=== PATIENT | male | born 1995 | race Caucasian/White ===

== ENCOUNTER 2021-08-26 18:23 | Emergency (ER) | payer BC, SELFPAY ==
--- NOTE | ~2021-08-26 | XR_ITS ---
EXAMINATION: XR soft tissue neck INDICATION: Sensation of impacted food or pill bolus TECHNIQUE: Two views of the neck soft tissues are obtained. COMPARISON: None available FINDINGS: The soft tissues are unremarkable. No radiopaque foreign body is identified. The osseous st ructures are unremarkable. IMPRESSION: 1. No radiopaque foreign body identified. Reviewed, dictated and finalized at location [facility].
--- NOTE | 2021-08-26 18:24 | ED.URI ---
HPI - URI/Sore Throat General Chief Complaint: Upper Respiratory Infection Stated Complaint: feels like something stuck in throat Time Seen by Provider: 08/26/21 18:24 Source: patient and RN notes reviewed History of Present Illness HPI Narrative: Patient is a 25-year-old male who presents the urgent care with complaints of something stuck in his throat on the right side. Patient states that since Sunday he was experience a lot of postnasal drainage and cough. Patient states he started using Flonase and Sudafed. States that last night he took a larger Sudafed and feels that it got stuck in the right side of his throat. Patient states that he vomited a little bit afterwards and felt better this morning until he ate lunch. Patient states that ever since he ate lunch he is having some difficulty swallowing and feels the need to cough. No other acute complaints. No acute distress noted. Patient aware of the plan of care. Some parts of this dictation were generated by voice recognition software and may contain typographical and/or grammatical inaccuracies. Related Data Home Medications Medication Instructions Recorded Confirmed No Home Medications 08/26/21 08/26/21 Allergies Allergy/AdvReac Type Severity Reaction Status Date / Time No Known Allergies Allergy Verified 08/26/21 18:51 Review of Systems Review of Systems: CONSTITUTIONAL: Denies fever, chills, or sweats. EYES: Denies visual changes, redness, or discharge. ENT: Denies rhinorrhea, congestion otalgia. Reports of the feeling of something stuck in his throat CARDIOVASCULAR: Denies chest pain, palpitations, or edema. RESPIRATORY: Denies cough or dyspnea. GASTROINTESTINAL: Denies abdominal pain, nausea, vomiting, or diarrhea. GENITOURINARY: Denies dysuria or hematuria. SKIN: Denies rash or itching. MUSCULOSKELETAL: Denies back pain, joint pain, or myalgia. NEUROLOGIC: Denies headache, numbness, or weakness. All other systems reviewed are negative, except as documented in HPI. PMFSH Comments At the time of my signature, I reviewed and agree with the nursing past medical, surgical, social, and family history. There is no relevant family history pertinent to the patient complaint. Exam Narrative: GENERAL: This is a well-nourished, well-developed patient, in no apparent distress. HEAD: normocephalic, atraumatic. EYES: PERRL. Sclera clear/white. Vision is grossly intact. EARS: External ears normal, auditory canals clear and without drainage, TMs normal without perforation. Hearing grossly intact. NOSE: External nose normal with no obvious nasal discharge, nares without redness, no rhinorrhea. THROAT: Mucous membranes moist. Notable difficulty with swallowing with moderate erythema noted to posterior oropharynx NECK: Neck supple, non-tender without lymphadenopathy CARDIOVASCULAR: Regular rate and rhythm without murmurs, gallops, or rubs. RESPIRATORY: Clear to auscultation. Breath sounds equal bilaterally. No wheezes, rales, or rhonchi. SKIN: warm, intact with no suspicious lesions or rash, good texture and turgor. NEURO: awake, alert, and oriented to person, place and time. There were no obvious focal neurologic abnormalities. EXTREMITIES: No clubbing, cyanosis, or edema. Course Course Level of Care: Express Care Visit Vital Signs Vital signs: Vital Signs Temperature 99.3 F 08/26/21 18:45 Pulse Rate 100 08/26/21 18:45 Respiratory Rate 18 08/26/21 18:45 Blood Pressure 154/105 H 08/26/21 18:45 Pulse Oximetry 100 08/26/21 18:45 Temperature 99.3 F 08/26/21 18:45 Pulse Rate 100 08/26/21 18:45 Respiratory Rate 18 08/26/21 18:45 Blood Pressure 154/105 H 08/26/21 18:45 Pulse Oximetry 100 08/26/21 18:45 Reviewed-patient is informed that they may have pre-hypertension or hypertension based on a blood pressure reading in the department. I recommend the patient call the primary care provider listed on their discharge instructions or a phys
[2021-08-26 18:45] VITALS: BP 154/105; PULSE 100; RESP 18; TEMP 37.4; O2SAT 100
== END 2021-08-26 19:26 | disposition short-term general hospital (02) ==
PROVIDERS: Emergency Provider Nurse Practitioner Family
DX: R13.10 Dysphagia, unspecified (principal); Z86.16 Personal history of COVID-19
CPT/HCPCS: 70360; 99213; G0463

== ENCOUNTER 2021-08-26 20:08 | Emergency (ER) | payer BC, SELFPAY ==
[2021-08-26] VITALS (7 sets, daily range): BP systolic 142–152; BP diastolic 102–106; PULSE 97–110; RESP 13–19; TEMP 36.9; O2SAT 98–100
--- NOTE | ~2021-08-26 | CT_ITS ---
EXAMINATION: CT soft tissue neck w con DATE: 08/26/2021 22:14 INDICATION: Dysphagia TECHNIQUE: Computed tomography (CT) of the neck was performed with 75 cc of Omnipaque 350 intravenous contrast. The dose-length product (DLP) was 584.15 mGy-cm. Automated exposure control and iterative reconstruction technique were employed. COMPARISON: None FINDINGS: The neck soft tissues are unremarkable. No radiopaque foreign body is identified. There are no pathologically enlarged lymph nodes of the neck. No abnormal enhancement is present after contras t administration. The airway is widely patent. IMPRESSION: 1. No CT correlate for the patient's symptoms. Reviewed, dictated and finalized at location [facility].
--- NOTE | 2021-08-26 21:15 | ED.SKABFB ---
HPI - Skin/Abscess/Foreign Bdy General Chief complaint: Skin/Abscess/Foreign Body Stated complaint: suspected foreign body Time Seen by Provider: 08/26/21 20:33 History of Present Illness HPI narrative: 25-year-old male presents emergency room for evaluation of sore throat, and a sensation that foreign body is stuck in his throat. Patient states that he has recently experienced upper respiratory symptoms, taking Sudafed and Mucinex regularly. Patient states last night he took a Sudafed and believes it is stuck in his throat patient is able to drink fluids and eat without incident. Patient denies any complications with his thyroid. Related Data Allergies Allergy/AdvReac Type Severity Reaction Status Date / Time No Known Allergies Allergy Verified 08/26/21 18:51 Review of Systems Review of Systems: CONSTITUTIONAL: Denies fever, chills, or sweats. EYES: Denies visual changes, redness, or discharge. ENT: Reports sore throat, sinus congestion, postnasal drip CARDIOVASCULAR: Denies chest pain, palpitations, or edema. RESPIRATORY: Denies cough or dyspnea. GASTROINTESTINAL: Denies abdominal pain, nausea, vomiting, or diarrhea. GENITOURINARY: Denies dysuria or hematuria. SKIN: Denies rash or itching. MUSCULOSKELETAL: Denies back pain, joint pain, or myalgia. NEUROLOGIC: Denies headache, numbness, dizziness, or weakness. PSYCHIATRIC: Denies anxiety or depression. Exam Narrative: GENERAL: Well-appearing, well-nourished, and in no acute distress. HEAD: Normocephalic, atraumatic. EYES: PERRLA and EOMI. ENT: Nares clear, no rhinorrhea or epistaxis. Mucous membranes moist. Oropharynx without tonsillar hypertrophy exudate NECK: Supple. No adenopathy or masses. No carotid bruits or JVD CHEST: Clear to auscultation. No respiratory distress. No wheezes rales or rhonchi HEART: Regular rate and rhythm. No murmur heard. Normal peripheral pulses. EXTREMITIES: Normal range of motion. No edema. SKIN: Warm, dry, no rash. NEURO: No focal deficits. Alert and oriented x3. PSYCH: Normal mood and affect. Course Vital Signs Vital signs: Vital Signs Temperature 36.9 C 08/26/21 20:13 Pulse Rate 110 H 08/26/21 20:13 Respiratory Rate 14 08/26/21 20:13 Blood Pressure 147/106 H 08/26/21 20:13 Pulse Oximetry 100 08/26/21 20:13 Temperature 36.9 C 08/26/21 20:13 Pulse Rate 97 08/26/21 21:06 Respiratory Rate 13 08/26/21 21:06 Blood Pressure 142/102 H 08/26/21 21:45 Pulse Oximetry 98 08/26/21 21:45 MDM - Skin/Abscess/Foreign Bdy MDM Narrative Medical decision making narrative: 25-year-old male presented to the emergency room for evaluation of a sensation of something stuck in his throat. Patient states several days ago he was swallowing off brand Sudafed pill when he feels like he got stuck in his throat. Patient was able to keep solids and fluids down without incident. CT soft tissue showed no foreign body or esophageal swelling. CBC and CMP were unremarkable. Patient is likely experiencing a globus at this time. Lab Data Attestation: I reviewed the patient's lab results. Result diagrams: 08/26/21 21:29 08/26/21 21:29 Labs: Lab Results 08/26/21 08/26/21 Range/Units 21:29 21:29 WBC 7.2 (4.5-10.0) K/mm3 RBC 5.06 (4.6-6.20) M/mm3 Hgb 16.4 (14.0-18.0) g/dL Hct 47.3 (42.0-52.0) % MCV 93.5 (80-100) fl MCH 32.4 (26-34) pg MCHC 34.7 (32-36) g/dl RDW 13.1 (11.5-14.5) % Plt Count 230 (150-375) k/mm3 MPV 8.9 (7.4-10.4) fl Immature Gran % (Auto) 0.4 (0-0.5) % Neut % (Auto) 64.8 (45.5-73.1) % Lymph % (Auto) 24.4 (18.3-44.2) % [place] % (Auto) 6.6 (2.6-8.5) % Eos % (Auto) 3.2 (0-4.4) % Baso % (Auto) 0.6 (0.2-1.2) % Lymph # (Auto) 1.75 (0.9-3.2) K/mm3 [place] # (Auto) 0.5 (0.1-0.6) K/mm3 Eos # (Auto) 0.2 (0-0.3) K/mm3 Baso # (Auto) 0.0 (0.0-0.1) K/mm3 Abs Immat Gran (auto) 0.03 (0.00-0.031) K/mm3 Absolute Neuts
[2021-08-26 21:37] LABS: Basophils Percent Auto 0.6 % (0.2-1.2); Eosinophils Absolute Auto 0.2 K/mm3 (0-0.3); Eosinophils Percent Auto 3.2 % (0-4.4); Hematocrit 47.3 % (42.0-52.0); Hemoglobin 16.4 g/dL (14.0-18.0); Immature Granulocyte Absolute 0.03 K/mm3 (0.00-0.031); Immature Granulocyte Percent A 0.4 % (0-0.5); Lymphocytes Absolute Auto 1.75 K/mm3 (0.9-3.2); Lymphocytes Percent Auto 24.4 % (18.3-44.2); Mean Corpuscular HGB Conc 34.7 g/dl (32-36); Mean Corpuscular Hemoglobin 32.4 pg (26-34); Mean Corpuscular Volume 93.5 fl (80-100); Mean Platelet Volume 8.9 fl (7.4-10.4); Monocytes Absolute Auto 0.5 K/mm3 (0.1-0.6); Monocytes Percent Auto 6.6 % (2.6-8.5); Neutrophils Absolute Auto 4.6 K/mm3 (1.3-6.7); Neutrophils Percent Auto 64.8 % (45.5-73.1); Platelet Count Result 230 k/mm3 (150-375); Red Blood Count 5.06 M/mm3 (4.6-6.20); Red Cell Distribution Width 13.1 % (11.5-14.5); White Blood Count 7.2 K/mm3 (4.5-10.0)
[2021-08-26 21:48] LABS: Alanine Aminotransferase 28 U/L (4-50); Albumin Level 4.9 g/dL (3.5-5.1); Alkaline Phosphatase 75 U/L (38-126); Anion Gap 10 mmol/L (8-16); Aspartate Amino Transferase 32 U/L (17-59); Bilirubin,Total 0.8 mg/dL (0.2-1.3); Blood Urea Nitrogen 11 mg/dL (9-20); Carbon Dioxide 26 mmol/L (22-30); Chloride 104 mmol/L (98-107); Estimated CRCL calculation 117 ml/min; Estimated Glomerular Filt Rate > 60; Glucose 98 mg/dL (65-110); Potassium 3.5 mmol/L (3.4-5.0); Sodium 140 mmol/L (137-145)
[2021-08-26] MEDS: methylPREDNISolone SOD SUCC 125 MG VIAL IV PUSH (21:54)
[2021-08-26] MEDS: SODIUM CHLORIDE 0.9% IV 1,000 ML 999 ML IV CONT (21:54)
== END 2021-08-26 23:10 | disposition home or self-care (01) ==
PROVIDERS: Emergency Provider Nurse Practitioner Family
DX: F45.8 Other somatoform disorders (principal); R13.14 Dysphagia, pharyngoesophageal phase
CPT/HCPCS: 36415; 70360; 70491; 80053; 85025; 96361; 96374; 99284; J2930; J7030; Q9967

== ENCOUNTER 2023-03-06 05:24 | Inpatient (IN) | payer BC, SELFPAY ==
[2023-03-06] VITALS (69 sets, daily range): BP systolic 139–172; BP diastolic 101–133; PULSE 101–145; RESP 12–39; TEMP 36.7–37; O2SAT 89–100; BMI 29.2; BMI 29.3
--- NOTE | ~2023-03-06 | CT_ITS ---
EXAMINATION: CT abdomen pelvis w con DATE: 03/06/2023 10:00 INDICATION: Nausea, vomiting. Decreased and painful urination. TECHNIQUE: Computed tomography (CT) of the abdomen and pelvis was performed with 100 CC Omnipaque 350 intravenous contrast. Automated exposure control and iterative reconstruction technique were employe d. Exam dose: 784.15 mGy-cm total exam DLP. COMPARISON: 03/06/2023 right upper quadrant abdominal ultrasound examination FINDINGS: The lung bases are clear. Normal heart size. No pericardial or pleural effusion. Minimal bilateral gynecomastia. Diffuse hepatic steatosis. No hepatic space-occupying mass lesion is detected. The gallbladder appear s unremarkable. No gallbladder wall thickening or pericholecystic fluid or fat stranding. No bile hoa t dilatation. Normal splenic size. There is prominent peripancreatic fat stranding and loss of definition of the pancreatic outlines par ticularly along the lateral body and tail. There is fluid along the left anterior pararenal fascia an d thickening of the lateral conal fascia. The findings are consistent with acute interstitial pancrea titis. Normal morphology of the adrenal glands. 1.6 cm right renal cyst. The kidneys are otherwise unremarkable. No urinary tract calculus or hydrour eteronephrosis is detected. The urinary bladder and prostate gland are unremarkable. There is mild fr ee fluid in the dependent pelvis. Normal caliber of the abdominal aorta. No intraperitoneal or retroperitoneal or pelvic mass lesion or adenopathy. Small sliding hiatal hernia. The appendix is not visualized. No bowel obstruction, bowel wall thicken ing, pneumatosis or intraperitoneal free air. Small fat-containing umbilical hernia. Included skeletal structures are unremarkable. IMPRESSION: Acute pancreatitis Hepatic steatosis Small sliding hiatal hernia Reviewed, dictated and finalized at Location [facility]. Reviewed, dictated and finalized at location L.
--- NOTE | ~2023-03-06 | CT_ITS ---
CT of the Abdomen and Pelvis: Indication: Pancreatitis Technique: 2.5 mm axial scans were obtained through the abdomen and pelvis following intravenous adm inistration of 100 cc of Omnipaque 350. Dose reduction technique was used on this scan by utilizing a utomated exposure control and iterative reconstruction technique. The dose-length product (DLP) was 6 73.40 mGy-cm. COMPARISON: 03/06/2023 Findings: Scans through the lung bases demonstrate small left pleural effusion with mild left basila r atelectatic change. The liver, spleen, gallbladder, adrenals and kidneys are within normal limits. There is probable incr eased peripancreatic inflammatory stranding and fluid. Questionable focal pancreatic necrosis the johnson creatic tail. There is a probable developing, peripherally enhancing fluid collection along the great er curvature of the stomach measuring up to approximately 6.0 cm in maximum diameter, which could ref lect early walled off necrosis or developing pseudocyst. No evidence of aortic aneurysm. No lymphade nopathy. No bowel obstruction or bowel wall thickening. There is no evidence to suggest acute appendicitis. Images through the pelvis were performed. Urinary bladder unremarkable. No pelvic mass seen. Small am ount of pelvic ascites. Impression: Acute necrotizing pancreatitis, with focal necrosis at the pancreatic tail. Developing fluid collection along the greater curvature the stomach measuring up to 6 cm in maximum d iameter, consistent with early walled off necrosis, or possibly developing pseudocyst. Small left pleural effusion. Reviewed, dictated and finalized at [facility]. [employer] Impression: Acute necrotizing pancreatitis, with focal necrosis at the pancreatic tail. Developing fluid collection along the greater curvature the stomach measuring u p to 6 cm in maximum diameter, consistent with early walled off necrosis, or po ssibly developing pseudocyst. Small left pleural effusion.
--- NOTE | ~2023-03-06 | MR_ITS ---
EXAMINATION: MR MRCP wo/w con/w 3D wo ind DATE: 03/09/2023 10:43 INDICATION: Pancreatic pseudocyst. TECHNIQUE: Magnetic resonance imaging (MRI) of the abdomen was performed without and with 20 mL Multi Nixon intravenous contrast. Sequences included coronal T2-weighted FS FSE, coronal T2-weighted FSE, a xial T1-weighted LAVA, coronal FS FIESTA, axial dual-echo T1-weighted SPGR, coronal lava-FLEX, sagitt al T2-weighted FSE, axial T2-weighted FSE, and axial DWI. Thick-slab T2-weighted FSE images were obta ined for magnetic resonance cholangiopancreatography (MRCP). Maximum intensity projection 3-D reconst ructions of the volumetric data were created by the technologist. Postcontrast sequences included cor onal LAVA-flex and time course of axial T1-weighted LAVA. COMPARISON: CT abdomen and pelvis 03/06/2023 FINDINGS: ABDOMEN MRI: There are small pleural effusions, left worse than right. There is diffuse hepatic steat osis. The gallbladder is normal in size. The spleen is normal. There is hypoenhancement of the body a nd tail of the pancreas with surrounding fat stranding. There is hematoma in and around the tail of t he pancreas. There is a rim-enhancing collection between the stomach and pancreas measuring 8.7 x 2.6 x 3.3 cm. The adrenal glands and left kidney are normal. There is a 13 mm cyst in right kidney. Ther e are no dilated loops of bowel. ABDOMEN MRCP: The common duct is normal and measures 1 mm. IMPRESSION: 1. Acute necrotic pancreatitis with 8.7 x 2.6 x 3.3 cm acute necrotic collection. 2. Diffuse hepatic steatosis. 3. Small pleural effusions. Reviewed, dictated and finalized at location E. IMPRESSION: 1. Acute necrotic pancreatitis with 8.7 x 2.6 x 3.3 cm acute necrotic collectio n. 2. Diffuse hepatic steatosis. 3. Small pleural effusions.
--- NOTE | ~2023-03-06 | US_ITS ---
US abdomen limited INDICATION: Evaluate pancreatic pseudocyst. PROCEDURE: Realtime right upper abdominal ultrasound. COMPARISON: No prior studies for comparison. FINDINGS: The pancreas is not well visualized due to bowel gas and patient body habitus. Liver echot exture is increased, consistent with fatty infiltration. There is normal directional flow in the por hernan vein. The gallbladder is normal without stones, gallbladder wall thickening or pericholecystic fluid. Comm on bile duct measures 6 mm. No sonographic Rivera's sign. IMPRESSION: 1: Hepatic steatosis. 2: Pancreas not adequately visualized. Consider correlation with MRI of the abdomen without and with contrast for further assessment of pancreas. Reviewed, dictated and finalized at location A. IMPRESSION: 1: Hepatic steatosis. 2: Pancreas not adequately visualized. Consider correlation with MRI of the abd omen without and with contrast for further assessment of pancreas.
--- NOTE | ~2023-03-06 | US_ITS ---
EXAMINATION: US right upper quadrant DATE: 03/06/2023 08:30 INDICATION: Epigastric abdominal pain. Nausea and vomiting. TECHNIQUE: Multiple grayscale and Doppler ultrasound images of the abdomen were obtained. COMPARISON: None FINDINGS: The pancreas is not well visualized. There is diffuse hepatic steatosis. There is normal fl ow in main portal vein. The gallbladder is normal in size. No gallstones or gallbladder wall thickeni ng. There is no sonographic Rivera sign. The common duct is normal and measures 6 mm. IMPRESSION: 1. Diffuse hepatic steatosis. Reviewed, dictated and finalized at location E.
--- NOTE | ~2023-03-06 | CT_ITS ---
EXAMINATION: CTA chest PE protocol DATE: 03/10/2023 14:35 INDICATION: Tachycardia, hypertension and elevated d-dimer. TECHNIQUE: Computed tomography (CT) pulmonary angiogram of the chest was performed with 100 mL Omnipa que-350 intravenous contrast. Additional 3D reconstructions utilizing coronal maximum intensity proje ction (MIP) were performed. Automated exposure control and iterative reconstruction technique were em ployed. The dose-length product was 666.17 mGy-cm. COMPARISON: None FINDINGS: Good contrast opacification of the pulmonary arteries. There is mild streak artifact from dense contr ast in the superior vena cava and right atrium. Mild to moderate scattered respiratory motion artifac t which significantly limits evaluation of some of the segmental and subsegmental pulmonary arteries in the lower lung zones and in the subsegmental pulmonary arteries in the upper lung zones. There are thin horizontal bands of decreased attenuation extending across the contrast opacified pulmonary art eries and veins at multiple levels which appear to represent artifact of motion. No definitive pulmon addi emboli identified. There are small posterior layering pleural effusions, left greater than right. Partial collapse of the posterior left lower lobe. Additional mild compressive atelectasis at the po sterior basilar right lower lobe. No other airspace disease suspicious for pneumonia. No pulmonary ed tory. Heart size is normal. No pericardial effusion. Thoracic aorta is normal in caliber with no disse ction. No pathologically enlarged thoracic lymphadenopathy. Small sliding-type hiatal hernia. There i s some vicarious excreted contrast in the gallbladder. Diffuse hepatic steatosis. Again seen are noriega ges consistent with necrotizing pancreatitis at the tail the pancreas with surrounding peripancreatic stranding and small organized-appearing acute peripancreatic fluid collections. Bones are unremarkab le. IMPRESSION: 1. No definitive pulmonary embolism with evaluation significantly limited in the segmental and subseg mental pulmonary arteries in the bilateral lower lungs and in the smaller subsegmental pulmonary mehul jaida in the bilateral upper lungs due primarily to moderate respiratory motion. 2. Small bilateral pleural effusions with associated compressive atelectasis in bilateral lower lobes , left greater than right. 3. Small sliding-type hiatal hernia. 4. Acute necrotic pancreatitis with associated acute necrotic collection and nonorganized acute perip ancreatic fluid. Reviewed, dictated and finalized at location A. IMPRESSION: 1. No definitive pulmonary embolism with evaluation significantly limited in th e segmental and subsegmental pulmonary arteries in the bilateral lower lungs an d in the smaller subsegmental pulmonary arteries in the bilateral upper lungs d ue primarily to moderate respiratory motion. 2. Small bilateral pleural effusions with associated compressive atelectasis in bilateral lower lobes, left greater than right. 3. Small sliding-type hiatal hernia. 4. Acute necrotic pancreatitis with associated acute necrotic collection and no norganized acute peripancreatic fluid.
[2023-03-06 06:23] LABS: Hematocrit 56.2 % (42.0-52.0); Hemoglobin 19.7 g/dL (14.0-18.0); Mean Corpuscular HGB Conc 35.1 g/dl (32-36); Mean Corpuscular Hemoglobin 32.7 pg (26-34); Mean Corpuscular Volume 93.2 fl (80-100); Mean Platelet Volume 9.3 fl (7.4-10.4); Platelet Count Result 284 k/mm3 (150-375); Red Blood Count 6.03 M/mm3 (4.6-6.20); Red Cell Distribution Width 13.5 % (11.5-14.5); White Blood Count 19.6 K/mm3 (4.5-10.0)
[2023-03-06 06:40] LABS: Albumin Level 5.4 g/dL (3.5-5.1); Alkaline Phosphatase 96 U/L (38-126); Aspartate Amino Transferase 54 U/L (17-59); Bilirubin,Total 1.7 mg/dL (0.2-1.3); Blood Urea Nitrogen 21 mg/dL (9-20); Calcium 9.7 mg/dL (8.4-10.2); Carbon Dioxide 28 mmol/L (22-30); Chloride 98 mmol/L (98-107); Estimated CRCL calculation 95 ml/min; Estimated Glomerular Filt Rate > 60; Glucose 182 mg/dL (65-110); Lipase 1781 U/L (23-300)
[2023-03-06 06:50] LABS: Alanine Aminotransferase 70 U/L (6-50)
[2023-03-06 06:51] LABS: Appearance Urine Cloudy (Clear); Bacteria Urine Rare /hpf; Bilirubin Urine 2+ (Negative); Blood Urine 2+ (Negative); Color Urine Dark Yellow (Yellow); Glucose Urine UA Trace mg/dL (Negative); Hyaline Casts Urine Present /lpf; Ketones Urine Negative (Negative); Leukocyte Esterase Ur Trace LEU/UL (Negative); Mucus Urine Present /lpf; Nitrate Urine Negative (Negative); Non Pathogenic Casts >20; Protein Urine 4+ mg/dL (Negative); RBC Urine 0-2 /hpf (0-2); Squamous Epithelial Cell Urine Occasional /hpf (Few); WBC Urine 0-5 /hpf; pH Urine 5.5 (5.0-9.0)
[2023-03-06 06:52] LABS: Add Urine Microscopic? YES; Specific Grav Ur 1.042 (1.001-1.035)
[2023-03-06 06:52] LABS: Band Neutrophils Percent 3 % (0-6); Lymphocytes Absolute Manual 0.58 K/mm3 (1.1-4.5); Monocytes Absolute Manual 0.58 K/mm3 (0.1-0.90); Monocytes Percent Manual 3 % (3-9); Neutrophils Absolute Manual 18.42 K/mm3 (1.3-6.7); Neutrophils Percent Manual 91 % (46-73); Platelet Estimate Adequate (Adequate); Schistocytes None Seen (NORMAL); Total Cells Counted 100
[2023-03-06 07:04] LABS: Anion Gap 15 mmol/L (8-16); Potassium 3.9 mmol/L (3.4-5.0); Sodium 141 mmol/L (137-145)
[2023-03-06] MEDS: ONDANSETRON INJ 4 MG/2 ML VIAL IV PUSH ×3 (07:40→18:16)
[2023-03-06] MEDS: MORPHINE SULFATE (*CRX) 4 MG/ML INJ IV PUSH ×3 (08:00→22:25)
[2023-03-06] MEDS: SODIUM CHLORIDE 0.9% IV 1,000 ML 999 ML IV CONT (08:00)
--- NOTE | 2023-03-06 08:42 | ED.NAVMDI ---
HPI - Nausea/Vomiting/Diarrhea General Chief complaint: Nausea/Vomiting/Diarrhea Stated complaint: n/v Time Seen by Provider: 03/06/23 07:32 History of Present Illness HPI Narrative: Patient is a 27-year-old male who presents ER with nausea and vomiting. Ongoing for the last 18 hours. Multiple episodes of emesis. Is causing a lot of pain in his abdomen and back. Most pain is in the epigastrium and radiates into the back. No fevers or chills or sweats. Patient did drink some alcohol prior to this. No history of pancreatitis or gallstones. He has no urinary frequency urgency or dysuria. No chest pain or chest pressure. No fevers or chills or sweats. Related Data Home Medications Medication Instructions Recorded Confirmed No Home Medications 03/06/23 03/06/23 Allergies Allergy/AdvReac Type Severity Reaction Status Date / Time No Known Allergies Allergy Verified 03/06/23 12:57 Review of Systems Review of Systems: All systems reviewed & are unremarkable except as noted in HPI and below Constitutional: Constitutional: Denies chills, Denies fatigue and Denies fever(s) ENT: Denies nasal congestion and Denies sore throat Cardiovascular: Cardiovascular: Denies chest pain, Denies rapid heart rate and Denies radiating jaw, neck or arm pain Gastrointestinal: Gastrointestinal: Reports abdominal pain, Denies diarrhea, Reports nausea and Reports vomiting Musculoskeletal: Musculoskeletal: Reports no additional musculoskeletal complaints PMFSH Past Medical History Medical History (Updated 03/06/23 @ 18:14 by Mundo Waggoner MD) Hypertension Surgical History Surgical History (Updated 03/06/23 @ 13:45 by Dedra Bautista PA-C) History of tonsillectomy (2009) Social History Social History (Updated 03/06/23 @ 13:45 by Dedra Bautista PA-C) Social History: Surrogate medical decision maker: Lala Galvan, mother. Code status: Full code. Smoking status: Never smoker Alcohol intake: current Drinks per week: 8 Substance use: never Substance use type: does not use Lack of Transportation: No Lack of Food: Never True Current Housing: I Have Housing Concerned About Future Housing: No Difficulty Paying Gas/Electric Bills: No Difficulty Paying for Meds: No Currently Unemployed: No Education: Bachelor's Degree Difficulty w/ Childcare or Family Care: No Spiritual care concerns: No Exam Narrative: GENERAL: Uncomfortable-appearing, well-nourished, and actively vomiting. HEAD: Normocephalic, atraumatic. EYES: PERRL and EOMI. ENT: Mucous membranes moist. CHEST: Clear to auscultation. No respiratory distress. HEART: Tachycardic and regular normal peripheral pulses. ABDOMEN: Soft, epigastric tenderness with guarding, nondistended. EXTREMITIES: Normal range of motion. No edema. SKIN: Warm, dry, no rash. NEURO: Alert and oriented x3. PSYCH: Normal mood and affect. Course Course Emergency Course: Patient accepted to the hospitalist service. Patient aggressively fluid hydrated and given pain/nausea medication. Patient educated about diagnosis and treatment plan and verbalized understanding. Patient with chronic hypertension that is uncontrolled. Chart review shows elevated diastolic in the low 100s for several years. Vital Signs Vital signs: Vital Signs Temperature 98.3 F 03/06/23 06:00 Pulse Rate 123 H 03/06/23 06:00 Respiratory Rate 15 03/06/23 06:00 Blood Pressure 154/113 H 03/06/23 06:00 Pulse Oximetry 98 03/06/23 06:00 Oxygen Delivery Room Air 03/06/23 06:00 Temperature 98.3 F 03/06/23 06:00 Pulse Rate 121 H 03/06/23 17:15 Respiratory Rate 20 03/06/23 17:15 Blood Pressure 159/113 H 03/06/23 17:15 Pulse Oximetry 100 03/06/23 17:15 Oxygen Delivery Room Air 03/06/23 06:00 MDM - Nausea/Vomiting/Diarrhea Lab Data 03/06/23 06:11 03/06/23 14:02 Labs: Lab Results 03/06/23 03/06/23 1
[2023-03-06 09:02] LABS: Lactic Acid Reflex 4.4 mmol/L (0.7-2.0)
[2023-03-06] MEDS: SODIUM CHLORIDE 0.9% IV 2,000 ML 999 ML (09:18)
[2023-03-06] MEDS: THIAMINE HCL 200 MG/2 ML VIAL 100 MG IV PUSH (09:27)
--- NOTE | 2023-03-06 10:33 | PC.NURSE ---
pts admission status changed to imu based on pts chronic htn.
[2023-03-06] MEDS: SODIUM CHLORIDE 0.9% IV 1,000 ML 200 ML IV CONT ×3 (11:19→22:25)
[2023-03-06 11:47] LABS: Reflex Lactic Acid Yes or No Add Lactic
--- NOTE | 2023-03-06 13:02 | ADMGEN ---
This patient, Eligio Galvan, was admitted to Virtual [facility] IMU-2. Patient/family oriented to hospital policies and general routines including ID bracelet, bed and alarms, visiting hours, pain management, procedures, bathroom and other care routines, personal items, smoking policy, room service/diet, and visiting hours. Information on how to activate the Rapid Response Team has been discussed. Patient/Family are encouraged to report perceived risks to care and to ask questions if they do not understand what they are told or what they should do.
--- NOTE | 2023-03-06 13:41 | PM.IMHP ---
H&P: HPI History of Present Illness Date/Time: 03/06/23 13:40 Chief Complaint: Nausea, vomiting, abdominal pain. Narrative: This is a 27-year-old male with hypertension who presented to the emergency department via private vehicle for evaluation of nausea, and abdominal pain. The patient provides the following history. He typically drinks 5 to 8 alcoholic beverages a week however imbibed a bit more than usual on Sunday night. Sunday he started to feel poorly with generalized abdominal pain, persistent nausea, vomiting, and eventually dry heaves. He has difficult time describing his pain but it is intense and radiates through to the back. He has not been able to hold down any food or drink. His emesis has been brown but he has not noticed obvious blood. It is not unusual for him to have indigestion but he has no history of ulcers. He also denies history of gallbladder disease and pancreatitis. He denies sick contacts. No fever, cold or flu symptoms, chest pain, shortness a breath, cough, melena, hematochezia, or diarrhea. He denies ever having signs or symptoms of alcohol withdrawal. He was afebrile on arrival to the ED with blood pressures as high as 172/118. Pertinent labs include a WBC count of 19.6, hemoglobin 19.7, lactic acid 4.4, lipase 1781, total protein 9.0, albumin 5.4. CT of the abdomen and pelvis showed acute pancreatitis, hepatic steatosis, and small sliding hiatal hernia. He received 30 mL/kg bolus of normal saline, 4 mg IV morphine, and 4 mg IV ondansetron and he is being admitted in this setting for acute pancreatitis and dehydration. Review of Systems Review of Systems: Twelve systems were reviewed and are negative except for as per HPI. [facility] Past Medical History Medical History (Updated 03/06/23 @ 21:15 by Dedra Bautista PA-C) Hypertension Previously prescribed metoprolol however he did not notice any difference in his blood pressures. He continues to do ambulatory blood pressure monitoring and reports that it has never been over 140/90. Surgical History Surgical History History of tonsillectomy (2009) Family History Family History (Updated 03/06/23 @ 21:15 by Dedra G Gerling, PA-C) Other Family history non-contributory Social History Social History Social History: Surrogate medical decision maker: Lala Galvan, mother. Code status: Full code. Smoking status: Never smoker Alcohol intake: current Drinks per week: 8 Substance use: never Substance use type: does not use Lack of Transportation: No Lack of Food: Never True Current Housing: I Have Housing Concerned About Future Housing: No Difficulty Paying Gas/Electric Bills: No Difficulty Paying for Meds: No Currently Unemployed: No Education: Bachelor's Degree Difficulty w/ Childcare or Family Care: No Spiritual care concerns: No Meds Home Medications and Allergies Home Medications Medication Instructions Recorded Confirmed Type No Home Medications 03/06/23 03/06/23 History Allergies Allergy/AdvReac Type Severity Reaction Status Date / Time No Known Allergies Allergy Verified 03/06/23 12:57 Vital Signs Vital Signs - 24 hr 03/06/23 06:00 03/06/23 07:26 03/06/23 07:27 Temperature 98.3 F Pulse Rate 123 H 131 H 130 H Respiratory Rate 15 39 H 26 H Blood Pressure 154/113 H 155/133 H Pulse Oximetry 98 Oxygen Delivery Room Air 03/06/23 07:30 03/06/23 07:31 03/06/23 07:46 Temperature Pulse Rate 133 H 126 H 128 H Respiratory Rate 30 H 30 H 32 H Blood Pressure 163/119 H Pulse Oximetry 96 Oxygen Delivery 03/06/23 08:00 03/06/23 08:01 03/06/23 08:23 Temperature Pulse Rate 123 H Respiratory Rate Blood Pressure 154/118 H Pulse Oximetry 94 97 97 Oxygen Delivery 03/06/23 08:30 03/06/23 08:45 03/06/23 09:00 Temperature Pulse Ra
[2023-03-06 14:20] LABS: Anion Gap 6 mmol/L (8-16); Blood Urea Nitrogen 20 mg/dL (9-20); Carbon Dioxide 28 mmol/L (22-30); Chloride 106 mmol/L (98-107); Estimated CRCL calculation 104 ml/min; Estimated Glomerular Filt Rate > 60; Glucose 142 mg/dL (65-110); Lactic Acid Reflex 1.9 mmol/L (0.7-2.0); Lipase 1686 U/L (23-300); Magnesium 1.6 mg/dL (1.6-2.3); Sodium 140 mmol/L (137-145)
--- NOTE | 2023-03-06 14:34 | PC.NURSE ---
pt resting quietly on stretcher. waiting imu bed assignment.
[2023-03-06] MEDS: hydrALAZINE HCL 20 MG/ML VIAL 10 MG IV PUSH ×2 (16:16→22:25)
[2023-03-06] MEDS: PROMETHAZINE HCL 25 MG/ML AMPUL 12.5 MG IV PUSH (16:48)
[2023-03-06] MEDS: HYDROmorphone HCL INJ (*CRX) 1 MG/ML SYR 0.5 MG IV PUSH (16:49)
[2023-03-06] MEDS: PANTOPRAZOLE SODIUM IV 40 MG VIAL IV PUSH ×2 (16:49→20:27)
--- NOTE | 2023-03-06 17:50 | ADMGEN ---
This patient, Eligio Galvan, was admitted to Medical Room 253-01. Patient/family oriented to hospital policies and general routines including ID bracelet, bed and alarms, visiting hours, pain management, procedures, bathroom and other care routines, personal items, smoking policy, room service/diet, and visiting hours. Information on how to activate the Rapid Response Team has been discussed. Patient/Family are encouraged to report perceived risks to care and to ask questions if they do not understand what they are told or what they should do.
[2023-03-07] VITALS (9 sets, daily range): BP systolic 142–156; BP diastolic 94–106; PULSE 105–127; RESP 20; TEMP 36.3–36.8; O2SAT 97–99
[2023-03-07] MEDS: SODIUM CHLORIDE 0.9% IV 1,000 ML 200 ML IV CONT ×5 (02:58→23:30)
[2023-03-07] MEDS: MORPHINE SULFATE (*CRX) 4 MG/ML INJ IV PUSH ×5 (02:59→22:24)
[2023-03-07] MEDS: ONDANSETRON INJ 4 MG/2 ML VIAL IV PUSH ×3 (02:59→13:15)
[2023-03-07] MEDS: hydrALAZINE HCL 20 MG/ML VIAL 10 MG IV PUSH (06:23)
[2023-03-07 06:34] LABS: Alanine Aminotransferase 33 U/L (6-50); Albumin Level 3.6 g/dL (3.5-5.1); Alkaline Phosphatase 56 U/L (38-126); Anion Gap 4 mmol/L (8-16); Aspartate Amino Transferase 32 U/L (17-59); Bilirubin,Total 1.2 mg/dL (0.2-1.3); Blood Urea Nitrogen 15 mg/dL (9-20); Calcium 7.6 mg/dL (8.4-10.2); Carbon Dioxide 27 mmol/L (22-30); Chloride 110 mmol/L (98-107); Estimated CRCL calculation 107 ml/min; Estimated Glomerular Filt Rate > 60; Glucose 116 mg/dL (65-110); Lipase 586 U/L (23-300); Potassium 3.6 mmol/L (3.4-5.0); Sodium 141 mmol/L (137-145)
[2023-03-07 07:24] LABS: Hematocrit 44.8 % (42.0-52.0); Hemoglobin 14.5 g/dL (14.0-18.0); Immature Platelet Fraction Pct 3.5 % (0.9-11.2); Mean Corpuscular HGB Conc 32.4 g/dl (32-36); Mean Corpuscular Hemoglobin 32.7 pg (26-34); Mean Corpuscular Volume 100.9 fl (80-100); Mean Platelet Volume 9.6 fl (7.4-10.4); Platelet Count Result 126 k/mm3 (150-375); Red Blood Count 4.44 M/mm3 (4.6-6.20); Red Cell Distribution Width 13.9 % (11.5-14.5); White Blood Count 9.2 K/mm3 (4.5-10.0)
[2023-03-07] MEDS: PANTOPRAZOLE SODIUM IV 40 MG VIAL IV PUSH ×2 (08:02→20:31)
--- NOTE | 2023-03-07 09:01 | PM.IMPN ---
Progress Note: A&P Assessment and Plan (1) Acute pancreatitis: Code(s): K85.90 - Acute pancreatitis without necrosis or infection, unspecified Status: Acute Assessment and Plan: Continue IV fluid, supportive care, ice chips and monitor symptoms LFTs resolved, lipase trending down (2) Dehydration: Code(s): E86.0 - Dehydration Status: Acute Assessment and Plan: As above (3) Lactic acidosis: Code(s): E87.20 - Acidosis, unspecified Status: Acute Assessment and Plan: Resolved, monitor (4) Hypertension: Code(s): I10 - Essential (primary) hypertension Status: Acute Assessment and Plan: Blood pressure reviewed 03/07 Plan Anticipate discharge home tomorrow if symptoms continue to improve and labs look good DVT prophylaxis with SCDs GI prophylaxis not indicated Code status full code Subjective Date/time seen: 03/07/23 09:01 Interval history: 27-year-old male with hypertension who presented to the emergency department via private vehicle for evaluation of nausea, and abdominal pain and is currently being treated for acute pancreatitis of unknown etiology, likely alcohol intake. No overnight events noted. No chest pain or shortness of breath. No nausea, vomiting. He does admit to some diarrhea. No fevers or chills. Patient states he still has significant abdominal pain, unchanged from yesterday. Review of Systems Review of Systems: 12 point review of systems was assessed and was negative except as noted in the HPI Exam Narrative: General: No acute distress, alert and oriented per baseline HEENT: Atraumatic, normocephalic, mucous membranes moist CV: Regular rate and rhythm, S1, S2 Lungs: Clear to auscultation bilaterally, no rales or crackles noted, no wheezes, good air entry Abdomen: Soft, nontender, nondistended Extremities: Normal to inspection Skin: No rashes noted, no lesions or wounds seen Psych: Euthymic, normal affect Objective Data Vital Signs Vital Signs: Vital Signs - 24 hr 03/06/23 09:15 03/06/23 09:28 03/06/23 09:30 Temperature Pulse Rate 115 H 114 H 113 H Respiratory Rate Blood Pressure 164/121 H 165/118 H Pulse Oximetry 97 96 98 Oxygen Delivery 03/06/23 09:31 03/06/23 09:45 03/06/23 09:46 Temperature Pulse Rate 101 H 108 H 118 H Respiratory Rate Blood Pressure 161/114 H Pulse Oximetry 99 98 99 Oxygen Delivery 03/06/23 10:04 03/06/23 10:05 03/06/23 10:15 Temperature Pulse Rate 121 H 110 H 145 H Respiratory Rate Blood Pressure 159/118 H Pulse Oximetry 96 98 98 Oxygen Delivery 03/06/23 10:16 03/06/23 10:17 03/06/23 10:30 Temperature Pulse Rate 109 H 104 H 106 H Respiratory Rate Blood Pressure 172/118 H 155/116 H Pulse Oximetry 99 98 100 Oxygen Delivery 03/06/23 10:31 03/06/23 10:45 03/06/23 10:46 Temperature Pulse Rate 108 H 112 H 110 H Respiratory Rate Blood Pressure 161/123 H Pulse Oximetry 100 95 98 Oxygen Delivery 03/06/23 11:02 03/06/23 11:17 03/06/23 11:18 Temperature Pulse Rate 126 H 118 H 119 H Respiratory Rate Blood Pressure 151/117 H Pulse Oximetry 96 98 Oxygen Delivery 03/06/23 11:30 03/06/23 11:31 03/06/23 11:45 Temperature Pulse Rate 121 H 108 H 113 H Respiratory Rate Blood Pressure 152/119 H 158/123 H Pulse Oximetry 94 98 94 Oxygen Delivery 03/06/23 11:46 03/06/23 12:00 03/06/23 12:01 Temperature Pulse Rate 114 H 119 H 119 H Respiratory Rate Blood Pressure 158/115 H Pulse Oximetry 97 93 97 Oxygen Delivery 03/06/23 12:15 03/06/23 12:16 03/06/23 12:30 Temperature Pulse Rate 119 H 118 H 117 H Respiratory Rate Blood Pressure 159/119 H 158/114 H Pulse Oximetry 95 97 89 L Oxygen Delivery 03/06/23 12:31 03/06/23 12:45 03/06/23 12:46 Temperature Pulse Rate 117 H 113 H 111 H Respiratory Rate Bloo
[2023-03-08] VITALS (9 sets, daily range): BP systolic 144–167; BP diastolic 96–104; PULSE 102–124; RESP 18–20; TEMP 36.8–36.9; O2SAT 98–99
[2023-03-08] MEDS: MORPHINE SULFATE (*CRX) 4 MG/ML INJ IV PUSH ×4 (01:03→23:28)
[2023-03-08] MEDS: SODIUM CHLORIDE 0.9% IV 1,000 ML 200 ML IV CONT ×4 (04:32→21:04)
[2023-03-08] MEDS: PANTOPRAZOLE SODIUM IV 40 MG VIAL IV PUSH ×2 (08:40→21:03)
--- NOTE | 2023-03-08 13:16 | PC.NURSE ---
On 03/08/23, the student, [Kylah Faulkner], provided care and completed [facility] documentation on this patient. I have reviewed the student's documentation and agree with the findings.
[2023-03-08 13:54] LABS: Basophils Percent Auto 0.4 % (0.2-1.2); Eosinophils Absolute Auto 0.2 K/mm3 (0-0.3); Eosinophils Percent Auto 2.7 % (0-4.4); Hemoglobin 12.3 g/dL (14.0-18.0); Immature Granulocyte Absolute 0.04 K/mm3 (0.00-0.031); Immature Granulocyte Percent A 0.6 % (0-0.5); Lymphocytes Percent Auto 11.4 % (18.3-44.2); Mean Corpuscular HGB Conc 33.2 g/dl (32-36); Mean Corpuscular Hemoglobin 32.7 pg (26-34); Mean Corpuscular Volume 98.4 fl (80-100); Mean Platelet Volume 9.7 fl (7.4-10.4); Monocytes Absolute Auto 0.6 K/mm3 (0.1-0.6); Monocytes Percent Auto 8.3 % (2.6-8.5); Neutrophils Absolute Auto 5.4 K/mm3 (1.3-6.7); Neutrophils Percent Auto 76.6 % (45.5-73.1); Platelet Count Result 108 k/mm3 (150-375); Red Blood Count 3.76 M/mm3 (4.6-6.20); Red Cell Distribution Width 13.2 % (11.5-14.5)
[2023-03-08 14:06] LABS: Lipase 305 U/L (23-300)
[2023-03-08 14:09] LABS: Alanine Aminotransferase 22 U/L (6-50); Albumin Level 3.4 g/dL (3.5-5.1); Alkaline Phosphatase 58 U/L (38-126); Anion Gap 10 mmol/L (8-16); Aspartate Amino Transferase 24 U/L (17-59); Bilirubin,Total 1.1 mg/dL (0.2-1.3); Blood Urea Nitrogen 10 mg/dL (9-20); Calcium 7.8 mg/dL (8.4-10.2); Carbon Dioxide 18 mmol/L (22-30); Chloride 107 mmol/L (98-107); Estimated CRCL calculation 148 ml/min; Estimated Glomerular Filt Rate > 60; Glucose 89 mg/dL (65-110); Potassium 3.5 mmol/L (3.4-5.0); Sodium 135 mmol/L (137-145)
--- NOTE | 2023-03-08 15:43 | PM.IMPN ---
Progress Note: A&P Assessment and Plan (1) Acute pancreatitis: Code(s): K85.90 - Acute pancreatitis without necrosis or infection, unspecified Status: Acute Assessment and Plan: Continue IV fluid, supportive care, ice chips and monitor symptoms LFTs resolved, lipase trending down, ADAT Not improving as expected, check imaging to look for pseudocyst, no signs of infection (2) Dehydration: Code(s): E86.0 - Dehydration Status: Acute Assessment and Plan: As above (3) Lactic acidosis: Code(s): E87.20 - Acidosis, unspecified Status: Acute Assessment and Plan: Resolved, monitor (4) Hypertension: Code(s): I10 - Essential (primary) hypertension Status: Acute Assessment and Plan: Blood pressure reviewed 03/08 Plan DVT prophylaxis with SCDs GI prophylaxis not indicated Code status full code Subjective Date/time seen: 03/08/23 15:43 Interval history: 27-year-old male with hypertension who presented to the emergency department via private vehicle for evaluation of nausea, and abdominal pain and is currently being treated for acute pancreatitis of unknown etiology, likely alcohol intake. No overnight events noted. No chest pain or shortness of breath. No nausea, vomiting. No fevers or chills. A little diarrhea, still with significant abdominal pain. Review of Systems Review of Systems: 12 point review of systems was assessed and was negative except as noted in the HPI Exam Narrative: General: No acute distress, alert and oriented per baseline HEENT: Atraumatic, normocephalic, mucous membranes moist CV: Regular rate and rhythm, S1, S2 Lungs: Clear to auscultation bilaterally, no rales or crackles noted, no wheezes, good air entry Abdomen: Diffusely TTP Extremities: Normal to inspection Skin: No rashes noted, no lesions or wounds seen Psych: Euthymic, normal affect Objective Data Vital Signs Vital Signs: Vital Signs - 24 hr 03/07/23 16:00 03/07/23 20:57 03/07/23 20:00 Temperature 97.6 F Pulse Rate 114 H 105 H 110 H Respiratory Rate 20 Blood Pressure 155/103 H Pulse Oximetry 99 Oxygen Delivery 03/07/23 20:00 03/08/23 00:00 03/08/23 04:00 Temperature Pulse Rate 105 H 106 H 124 H Respiratory Rate 20 Blood Pressure Pulse Oximetry 99 Oxygen Delivery Room Air 03/08/23 06:00 03/08/23 08:00 03/08/23 14:09 Temperature 98.2 F 98.5 F Pulse Rate 105 H 104 H Respiratory Rate 20 18 Blood Pressure 144/96 H 167/104 H Pulse Oximetry 98 99 Oxygen Delivery Room Air Intake/Output Intake/Output: Intake & Output 03/05/23 03/06/23 03/07/23 03/08/23 23:59 23:59 23:59 23:59 Intake Total 4000 5000 2000 Output Total 200 1150 800 Balance 3800 3850 1200 Meds/Results Medications: Active Medications Generic Name Dose Route Start Last Admin Trade Name Freq PRN Reason Stop Dose Admin Hydralazine HCl 10 mg 03/06/23 13:46 03/07/23 06:23 Hydralazine Hcl 20 Mg/Ml Vial IV PUSH 10 mg Q6H PRN Administration SBP > 165 or DBP > 105 Sodium Chloride 1,000 mls @ 200 mls/hr 03/06/23 09:15 03/08/23 10:12 Normal Saline Iv IV CONT 200 mls/hr .Q5H CLAUDIA Administration Morphine Sulfate 4 mg 03/06/23 09:15 03/08/23 11:25 Morphine Sulfate (*Crx) 4 Mg/Ml Inj IV PUSH 4 mg Q2H PRN Administration Pain Rated 7-10 Ondansetron HCl 4 mg 03/06/23 09:15 03/07/23 13:15 Ondansetron Inj 4 Mg/2 Ml Vial IV PUSH 4 mg Q4H PRN Administration Nausea Pantoprazole Sodium 40 mg 03/06/23 21:00 03/08/23 08:40 Pantoprazole Sodium Iv 40 Mg Vial IV PUSH 40 mg Q12HR CLAUDIA Administration Radiology Results: ITS Impressions Upper Quadrant Ultrasound 03/06/23 08:31 IMPRESSION: 1. Diffuse hepatic steatosis. Abdomen/Pelvis CT 03/06/23 10:04 IMPRESSION: Acute pancreatitis Hepatic steatosis Small sliding hiatal hernia
[2023-03-09] VITALS (14 sets, daily range): BP systolic 161–166; BP diastolic 92–106; PULSE 91–110; RESP 18–22; TEMP 36.7–37.2; O2SAT 97–100
[2023-03-09] MEDS: SODIUM CHLORIDE 0.9% IV 1,000 ML 200 ML IV CONT ×2 (02:33→06:52)
[2023-03-09 06:11] LABS: Basophils Percent Auto 0.3 % (0.2-1.2); Eosinophils Absolute Auto 0.2 K/mm3 (0-0.3); Eosinophils Percent Auto 3.9 % (0-4.4); Hematocrit 38.2 % (42.0-52.0); Hemoglobin 12.8 g/dL (14.0-18.0); Immature Granulocyte Absolute 0.05 K/mm3 (0.00-0.031); Immature Granulocyte Percent A 0.8 % (0-0.5); Lymphocytes Absolute Auto 0.61 K/mm3 (0.9-3.2); Lymphocytes Percent Auto 9.8 % (18.3-44.2); Mean Corpuscular HGB Conc 33.5 g/dl (32-36); Mean Corpuscular Hemoglobin 32.6 pg (26-34); Mean Corpuscular Volume 97.2 fl (80-100); Mean Platelet Volume 9.3 fl (7.4-10.4); Monocytes Absolute Auto 0.5 K/mm3 (0.1-0.6); Monocytes Percent Auto 8.2 % (2.6-8.5); Neutrophils Absolute Auto 4.8 K/mm3 (1.3-6.7); Platelet Count Result 120 k/mm3 (150-375); Red Blood Count 3.93 M/mm3 (4.6-6.20); Red Cell Distribution Width 12.8 % (11.5-14.5); White Blood Count 6.2 K/mm3 (4.5-10.0)
[2023-03-09 06:18] LABS: Alanine Aminotransferase 21 U/L (6-50); Albumin Level 3.4 g/dL (3.5-5.1); Alkaline Phosphatase 64 U/L (38-126); Anion Gap 10 mmol/L (8-16); Aspartate Amino Transferase 24 U/L (17-59); Blood Urea Nitrogen 9 mg/dL (9-20); Calcium 8.2 mg/dL (8.4-10.2); Carbon Dioxide 18 mmol/L (22-30); Chloride 106 mmol/L (98-107); Estimated CRCL calculation 148 ml/min; Estimated Glomerular Filt Rate > 60; Glucose 83 mg/dL (65-110); Lipase 859 U/L (23-300); Potassium 3.3 mmol/L (3.4-5.0); Sodium 134 mmol/L (137-145)
--- NOTE | 2023-03-09 08:16 | PM.IMPN ---
Progress Note: A&P Assessment and Plan (1) Acute pancreatitis: Code(s): K85.90 - Acute pancreatitis without necrosis or infection, unspecified Status: Acute Assessment and Plan: Continue IV fluid, supportive care, ice chips and monitor symptoms Lipase slightly worsening today, monitor closely for signs of infection, would start imipenem if any concern for necrotizing pancreatitis, follow-up MRI Check procalcitonin, CRP MR shows necrotizing pancreatitis, started on meropenem prophylaxis, GI consult, monitor closely (2) Dehydration: Code(s): E86.0 - Dehydration Status: Acute Assessment and Plan: As above, decrease IVF today, starting to get hyponatremic (3) Lactic acidosis: Code(s): E87.20 - Acidosis, unspecified Status: Acute Assessment and Plan: Resolved, monitor (4) Hypertension: Code(s): I10 - Essential (primary) hypertension Status: Acute Assessment and Plan: Blood pressure reviewed 03/09 Still elevated, hydralazine prn Plan DVT prophylaxis with lovenox GI prophylaxis with PPI Code status full code Subjective Date/time seen: 03/09/23 08:16 Interval history: 27-year-old male with hypertension who presented to the emergency department via private vehicle for evaluation of nausea, and abdominal pain and is currently being treated for acute pancreatitis of unknown etiology, likely alcohol intake. No overnight events noted. No chest pain or shortness of breath. No nausea, vomiting. No fevers or chills. Patient states he is feeling much better today. Review of Systems Review of Systems: 12 point review of systems was assessed and was negative except as noted in the HPI Exam Narrative: General: No acute distress, alert and oriented per baseline HEENT: Atraumatic, normocephalic, mucous membranes moist CV: Regular rate and rhythm, S1, S2 Lungs: Clear to auscultation bilaterally, no rales or crackles noted, no wheezes, good air entry Abdomen: Slightly tender to palpation Extremities: Normal to inspection Skin: No rashes noted, no lesions or wounds seen Psych: Euthymic, normal affect Objective Data Vital Signs Vital Signs: Vital Signs - 24 hr 03/08/23 14:09 03/08/23 12:00 03/08/23 16:00 Temperature 98.5 F Pulse Rate 104 H 108 H 109 H Respiratory Rate 18 Blood Pressure 167/104 H Pulse Oximetry 99 Oxygen Delivery 03/08/23 16:23 03/08/23 20:24 03/08/23 20:00 Temperature 98.5 F Pulse Rate 102 H 104 H 105 H Respiratory Rate 20 Blood Pressure 153/101 H Pulse Oximetry 98 Oxygen Delivery 03/08/23 20:00 03/09/23 00:00 03/09/23 04:00 Temperature Pulse Rate 104 H 102 H 96 Respiratory Rate 20 Blood Pressure Pulse Oximetry 98 Oxygen Delivery Room Air 03/09/23 04:46 Temperature 98.1 F Pulse Rate 96 Respiratory Rate 20 Blood Pressure 166/106 H Pulse Oximetry 100 Oxygen Delivery Intake/Output Intake/Output: Intake & Output 03/06/23 03/07/23 03/08/23 03/09/23 23:59 23:59 23:59 23:59 Intake Total 4000 5000 4000 2000 Output Total 200 1150 1400 1200 Balance 3800 3850 2600 800 Meds/Results Medications: Active Medications Generic Name Dose Route Start Last Admin Trade Name Freq PRN Reason Stop Dose Admin Hydralazine HCl 10 mg 03/06/23 13:46 03/07/23 06:23 Hydralazine Hcl 20 Mg/Ml Vial IV PUSH 10 mg Q6H PRN Administration SBP > 165 or DBP > 105 Sodium Chloride 1,000 mls @ 200 mls/hr 03/06/23 09:15 03/09/23 06:52 Normal Saline Iv IV CONT 200 mls/hr .Q5H CLAUDIA Administration Morphine Sulfate 4 mg 03/06/23 09:15 03/08/23 23:28 Morphine Sulfate (*Crx) 4 Mg/Ml Inj IV PUSH 4 mg Q2H PRN Administration Pain Rated 7-10 Ondansetron HCl 4 mg 03/06/23 09:15 03/07/23 13:15 Ondansetron Inj 4 Mg/2 Ml Vial IV PUSH 4 mg Q4H PRN Administration Nausea Pantoprazole Sodium 40 mg 03/06/23 2
[2023-03-09] MEDS: ENOXAPARIN 40 MG/0.4 ML SYRINGE SUB-Q (08:55)
[2023-03-09] MEDS: PANTOPRAZOLE SODIUM IV 40 MG VIAL IV PUSH ×2 (08:55→21:28)
[2023-03-09] MEDS: POTASSIUM CHLORIDE INJ 40 MEQ in SODIUM CHLORIDE 0.9% IV 500 ML 130 MEQ IVPB (08:56)
[2023-03-09 09:01] LABS: Procalcitonin 0.1 ng/mL
[2023-03-09 09:06] LABS: Lactic Acid Reflex 0.6 mmol/L (0.7-2.0)
[2023-03-09] MEDS: MEROPENEM 1 GM/NS 100 ML 1 GM/100 ML BAG IVPB ×2 (13:51→21:28)
--- NOTE | 2023-03-09 17:19 | WPDGICN ---
Assessment and Plan Assessment and plan (1) Acute pancreatitis: Code(s): K85.90 - Acute pancreatitis without necrosis or infection, unspecified Status: Acute Assessment and Plan: Patient with acute pancreatitis. He does drink alcohol his uncertain if this could be contributing. He may be idiopathic. His triglyceride level is only mild asleep elevated. Patient on most recent imaging studies suggest that he may have a necrotizing component to this. The concern is that this may develop into a pseudocyst. Currently there is no signs of an infection. Patient's abdominal pain has lessened. Would suggest gradually implementing diet. Initially with liquids and advance slowly. Continue to monitor lipase liver function tests. Supportive care advised at this stage. GI Consult Note Consult date/time: 03/09/23 17:19 Reason for consult: Acute necrotizing pancreatitis. HPI: Eligio Galvan is a 27 year old male I am asked to see at the request of the hospitalist service. Patient admitted the hospital 03/06/2023. At that time had rather significant epigastric pain. Upon presentation ultrasound and CT scan were performed suggesting pancreatitis. Patient was placed in p.o.. In treated conservatively. Today his lipase noted elevate to approximately 800 range. MRCP was performed suggesting patient had a fluid collection between the liver and the stomach consistent with necrotizing pancreatitis. This may be the beginning of pseudocyst formation. Patient states his abdominal pain is improved. He has vague low lower back discomfort. Patient denies a fever. He has no jaundice. He admits to having perhaps 6 beers a week. He denies any recent travel. No prior episodes of pancreatitis. Review of Systems Review of Systems: Review of systems noncontributory. [facility] Past Medical History Medical History (Updated 03/06/23 @ 21:15 by Dedra Bautista PA-C) Hypertension Previously prescribed metoprolol however he did not notice any difference in his blood pressures. He continues to do ambulatory blood pressure monitoring and reports that it has never been over 140/90. Surgical History Surgical History History of tonsillectomy (2009) Family History Family History (Updated 03/06/23 @ 21:15 by Dedra Bautista PA-C) Other Family history non-contributory Social History Social History Social History: Surrogate medical decision maker: Lala Galvan, mother. Code status: Full code. Smoking status: Never smoker Alcohol intake: current Drinks per week: 8 Substance use: never Substance use type: does not use Lack of Transportation: No Lack of Food: Never True Current Housing: I Have Housing Concerned About Future Housing: No Difficulty Paying Gas/Electric Bills: No Difficulty Paying for Meds: No Currently Unemployed: No Education: Bachelor's Degree Difficulty w/ Childcare or Family Care: No Spiritual care concerns: No Meds Home Medications and Allergies Home Medications Medication Instructions Recorded Confirmed Type No Home Medications 03/06/23 03/06/23 History Allergies Allergy/AdvReac Type Severity Reaction Status Date / Time No Known Allergies Allergy Verified 03/06/23 12:57 Vital Signs Vital Signs - 24 hr 03/08/23 20:24 03/08/23 20:00 03/08/23 20:00 Temperature 98.5 F Pulse Rate 104 H 105 H 104 H Respiratory Rate 20 20 Blood Pressure 153/101 H Pulse Oximetry 98 98 Oxygen Delivery Room Air 03/09/23 00:00 03/09/23 04:00 03/09/23 04:46 Temperature 98.1 F Pulse Rate 102 H 96 96 Respiratory Rate 20 Blood Pressure 166/106 H Pulse Oximetry 100 Oxygen Delivery 03/09/23 08:54 03/09/23 09:35 03/09/23 10:59 Temperature Pulse Rate 104 H Respiratory Rate 22 H Blood Pressure 163/92 H 1
[2023-03-10] VITALS (12 sets, daily range): BP systolic 154–169; BP diastolic 90–110; PULSE 81–114; RESP 18; TEMP 36.6–36.9; O2SAT 99–100
[2023-03-10] MEDS: ONDANSETRON INJ 4 MG/2 ML VIAL IV PUSH (04:31)
[2023-03-10] MEDS: hydrALAZINE HCL 20 MG/ML VIAL 10 MG IV PUSH (04:31)
[2023-03-10 04:57] LABS: Basophils Percent Auto 0.4 % (0.2-1.2); Eosinophils Absolute Auto 0.2 K/mm3 (0-0.3); Eosinophils Percent Auto 2.4 % (0-4.4); Hematocrit 38.1 % (42.0-52.0); Immature Granulocyte Absolute 0.08 K/mm3 (0.00-0.031); Immature Granulocyte Percent A 1.1 % (0-0.5); Lymphocytes Absolute Auto 0.75 K/mm3 (0.9-3.2); Lymphocytes Percent Auto 10.4 % (18.3-44.2); Mean Corpuscular HGB Conc 34.1 g/dl (32-36); Mean Corpuscular Hemoglobin 32.3 pg (26-34); Mean Corpuscular Volume 94.5 fl (80-100); Monocytes Absolute Auto 0.6 K/mm3 (0.1-0.6); Monocytes Percent Auto 8.9 % (2.6-8.5); Neutrophils Absolute Auto 5.5 K/mm3 (1.3-6.7); Neutrophils Percent Auto 76.8 % (45.5-73.1); Platelet Count Result 136 k/mm3 (150-375); Red Blood Count 4.03 M/mm3 (4.6-6.20); Red Cell Distribution Width 12.6 % (11.5-14.5); White Blood Count 7.2 K/mm3 (4.5-10.0)
[2023-03-10 05:12] LABS: Alanine Aminotransferase 25 U/L (6-50); Albumin Level 3.5 g/dL (3.5-5.1); Alkaline Phosphatase 71 U/L (38-126); Anion Gap 8 mmol/L (8-16); Aspartate Amino Transferase 32 U/L (17-59); Bilirubin,Total 0.9 mg/dL (0.2-1.3); Blood Urea Nitrogen 7 mg/dL (9-20); Calcium 8.4 mg/dL (8.4-10.2); Carbon Dioxide 22 mmol/L (22-30); Chloride 104 mmol/L (98-107); Estimated CRCL calculation 167 ml/min; Estimated Glomerular Filt Rate > 60; Glucose 99 mg/dL (65-110); Potassium 3.3 mmol/L (3.4-5.0); Sodium 134 mmol/L (137-145)
[2023-03-10 05:19] LABS: Lipase 1936 U/L (23-300)
[2023-03-10] MEDS: MEROPENEM 1 GM/NS 100 ML 1 GM/100 ML BAG IVPB ×3 (05:50→20:56)
[2023-03-10] MEDS: MAG HYDROX/AL HYDROX/SIMETH 30 ML UDC PO (05:50)
[2023-03-10] MEDS: ENOXAPARIN 40 MG/0.4 ML SYRINGE SUB-Q (08:20)
[2023-03-10] MEDS: PANTOPRAZOLE SODIUM IV 40 MG VIAL IV PUSH ×2 (08:20→20:53)
--- NOTE | 2023-03-10 08:56 | PM.IMPN ---
Progress Note: A&P Assessment and Plan (1) Acute pancreatitis: Code(s): K85.90 - Acute pancreatitis without necrosis or infection, unspecified Status: Acute Assessment and Plan: Continue IV fluid, supportive care, ice chips and monitor symptoms Lipase slightly worsening today, monitor closely for signs of infection, would start imipenem if any concern for necrotizing pancreatitis 03/09: MR shows necrotizing pancreatitis, started on meropenem prophylaxis, GI consult appreciated, monitor closely CLD, ADAT 03/10: Cont abx prophylaxis due to necrotizing fluid collection, lipase slowly trending back up (2) Dehydration: Code(s): E86.0 - Dehydration Status: Acute Assessment and Plan: As above, add back IVF bolus today, see if this helps correct his tachycardia (3) Lactic acidosis: Code(s): E87.20 - Acidosis, unspecified Status: Acute Assessment and Plan: Resolved, monitor (4) Hypertension: Code(s): I10 - Essential (primary) hypertension Status: Acute Assessment and Plan: Blood pressure reviewed 03/10 Still elevated, hydralazine prn Start clonidine 0.1 mg q12h Plan DVT prophylaxis with lovenox GI prophylaxis with PPI Code status full code Subjective Date/time seen: 03/10/23 08:56 Interval history: 27-year-old male with hypertension who presented to the emergency department via private vehicle for evaluation of nausea, and abdominal pain and is currently being treated for acute pancreatitis of unknown etiology, likely alcohol intake. No overnight events noted. No chest pain or shortness of breath. No nausea, vomiting. No fevers or chills. No complaints today. Patient states he does remember getting bit by a scorpion when he was camping. Review of Systems Review of Systems: 12 point review of systems was assessed and was negative except as noted in the HPI Exam Narrative: General: No acute distress, alert and oriented per baseline HEENT: Atraumatic, normocephalic, mucous membranes moist CV: Regular rate and rhythm, S1, S2 Lungs: Clear to auscultation bilaterally, no rales or crackles noted, no wheezes, good air entry Abdomen: Slightly tender to palpation Extremities: Normal to inspection Skin: No rashes noted, no lesions or wounds seen Psych: Euthymic, normal affect Objective Data Vital Signs Vital Signs: Vital Signs - 24 hr 03/09/23 09:35 03/09/23 10:59 03/09/23 09:18 Temperature Pulse Rate 104 H 103 H Respiratory Rate 22 H Blood Pressure 166/94 H Pulse Oximetry 100 97 Oxygen Delivery Room Air 03/09/23 12:00 03/09/23 14:00 03/09/23 16:00 Temperature 98.6 F Pulse Rate 101 H 93 91 Respiratory Rate 18 Blood Pressure 161/96 H Pulse Oximetry 98 Oxygen Delivery 03/09/23 19:50 03/09/23 21:14 03/09/23 20:00 Temperature 98.9 F Pulse Rate 94 99 Respiratory Rate 18 Blood Pressure 162/100 H Pulse Oximetry 100 100 Oxygen Delivery Room Air 03/10/23 00:00 03/10/23 04:00 03/10/23 04:30 Temperature 97.8 F Pulse Rate 97 81 92 Respiratory Rate 18 Blood Pressure 168/104 H Pulse Oximetry 100 Oxygen Delivery 03/10/23 06:25 03/10/23 08:16 Temperature Pulse Rate 97 Respiratory Rate 18 Blood Pressure 160/100 H 154/90 H Pulse Oximetry 99 Oxygen Delivery Intake/Output Intake/Output: Intake & Output 03/07/23 03/08/23 03/09/23 03/10/23 23:59 23:59 23:59 23:59 Intake Total 5000 4000 3140 300 Output Total 1150 1400 1500 Balance 3850 2600 1640 300 Meds/Results Medications: Active Medications Generic Name Dose Route Start Last Admin Trade Name Freq PRN Reason Stop Dose Admin Enoxaparin Sodium 40 mg 03/09/23 09:00 03/10/23 08:20 Enoxaparin 40 Mg/0.4 Ml Syringe SUB-Q 40 mg DAILY CLAUDIA Administration Hydralazine HCl 10 mg 03/06/23 13:46 03/10/23 04:31 Hydralazine Hcl 20 Mg/Ml Vial IV PUSH 10 mg Q
[2023-03-10 10:08] LABS: CRP 16.6 mg/dL (<1.0)
[2023-03-10] MEDS: POTASSIUM CHLORIDE INJ 40 MEQ in SODIUM CHLORIDE 0.9% IV 500 ML 130 MEQ IVPB (10:35)
[2023-03-10] MEDS: cloNIDine HCL 0.1 MG TABLET PO ×2 (10:35→20:53)
[2023-03-10 13:37] LABS: D Dimer 6.73 ug/mL (<0.48)
[2023-03-10] MEDS: SODIUM CHLORIDE 0.9% IV 1,000 ML 999 ML IV CONT (15:10)
--- NOTE | 2023-03-10 15:16 | WPDGIPROGNO ---
Progress Note: A&P Assessment and Plan (1) Necrotizing pancreatitis: Code(s): K85.91 - Acute pancreatitis with uninfected necrosis, unspecified Status: Acute Assessment and Plan: first episode, he drinks alcohol but denies being a heavy drinker MRCP reviewed, pancreatic collection and started on iv antibiotics, normal liver enzymes this will need to be monitored and based on clinical course/imaging may need tertiary hospital evaluation for possible EUS +/- drainage (2) Epigastric pain: Code(s): R10.13 - Epigastric pain Status: Acute Assessment and Plan: improved on CL diet for now (3) Fluid collection of pancreas: Code(s): K86.89 - Other specified diseases of pancreas Status: Acute (4) Hypertension, uncontrolled: Code(s): I10 - Essential (primary) hypertension Status: Acute (5) Dehydration: Code(s): E86.0 - Dehydration Status: Acute Subjective Date/time seen: 03/10/23 15:16 Interval history: he is comfortable, no nausea, mostly dyspepsia rather than pain on liquid diet Review of Systems Review of Systems: All systems reviewed & are unremarkable except as noted in HPI and below Exam Const: General: comfortable and no acute distress HENMT: Face/Nose/Sinus: Normal nares present Eyes: General: appearance normal, both eyes and all related structures Neck: Neck: no JVD Resp: Auscultation: clear to auscultation bilaterally Cardio: Rate: regular rate Rhythm: regular rhythm GI: Inspection: non-distended GI Palp: Yes Soft to palpation and No Guarding due to palpation present (GI) Auscultation: normal bowel sounds Skin: General skin exam: normal color Neuro: Speech: normal speech Motor exam (neuro): 5/5 motor strength present throughout Extrem: General: normal to inspection Psych: Mental Status: mental status grossly normal Objective Data Vital Signs Vital Signs: Vital Signs - 24 hr 03/09/23 16:00 03/09/23 19:50 03/09/23 21:14 Temperature 98.9 F Pulse Rate 91 94 Respiratory Rate 18 Blood Pressure 162/100 H Pulse Oximetry 100 100 Oxygen Delivery Room Air 03/09/23 20:00 03/10/23 00:00 03/10/23 04:00 Temperature Pulse Rate 99 97 81 Respiratory Rate Blood Pressure Pulse Oximetry Oxygen Delivery 03/10/23 04:30 03/10/23 06:25 03/10/23 08:16 Temperature 97.8 F Pulse Rate 92 97 Respiratory Rate 18 18 Blood Pressure 168/104 H 160/100 H 154/90 H Pulse Oximetry 100 99 Oxygen Delivery 03/10/23 08:00 03/10/23 12:27 03/10/23 08:15 Temperature Pulse Rate 97 114 H Respiratory Rate Blood Pressure Pulse Oximetry Oxygen Delivery Room Air 03/10/23 13:30 Temperature 98.1 F Pulse Rate 94 Respiratory Rate 18 Blood Pressure 154/90 H Pulse Oximetry 99 Oxygen Delivery Intake/Output Intake/Output: Intake & Output 03/07/23 03/08/23 03/09/23 03/10/23 23:59 23:59 23:59 23:59 Intake Total 5000 4000 3140 880 Output Total 1150 1400 1500 Balance 3850 2600 1640 880 Meds/Results Medications: Active Medications Generic Name Dose Route Start Last Admin Trade Name Freq PRN Reason Stop Dose Admin Clonidine HCl 0.1 mg 03/10/23 09:00 03/10/23 10:35 Clonidine Hcl 0.1 Mg Tablet PO 0.1 mg Q12HR CLAUDIA Administration Enoxaparin Sodium 40 mg 03/09/23 09:00 03/10/23 08:20 Enoxaparin 40 Mg/0.4 Ml Syringe SUB-Q 40 mg DAILY CLAUDIA Administration Hydralazine HCl 10 mg 03/06/23 13:46 03/10/23 04:31 Hydralazine Hcl 20 Mg/Ml Vial IV PUSH 10 mg Q6H PRN Administration SBP > 165 or DBP > 105 Meropenem 1 gm in 100 mls @ 200 mls/hr 03/09/23 13:00 03/10/23 14:51 IVPB Infused Q8HR CLAUDIA Infusion Morphine Sulfate 4 mg 03/06/23 09:15 03/08/23 23:28 Morphine Sulfate (*Crx) 4 Mg/Ml Inj IV PUSH 4 mg Q2H PRN Administration Pain Rated 7-10 Ondansetron HCl 4 mg 03/06/23 09:15 03/10/23 04:31 Ondansetron Inj 4 Mg/
[2023-03-11] VITALS (11 sets, daily range): BP systolic 136–162; BP diastolic 92–94; PULSE 83–106; RESP 16–18; TEMP 35.8–36.9; O2SAT 97–100
[2023-03-11 05:34] LABS: Basophils Percent Auto 0.4 % (0.2-1.2); Eosinophils Absolute Auto 0.2 K/mm3 (0-0.3); Eosinophils Percent Auto 2.2 % (0-4.4); Hemoglobin 13.6 g/dL (14.0-18.0); Immature Granulocyte Absolute 0.09 K/mm3 (0.00-0.031); Immature Granulocyte Percent A 1.2 % (0-0.5); Lymphocytes Absolute Auto 0.84 K/mm3 (0.9-3.2); Lymphocytes Percent Auto 10.8 % (18.3-44.2); Mean Corpuscular Hemoglobin 32.2 pg (26-34); Mean Corpuscular Volume 94.8 fl (80-100); Mean Platelet Volume 8.9 fl (7.4-10.4); Monocytes Absolute Auto 0.8 K/mm3 (0.1-0.6); Monocytes Percent Auto 10.1 % (2.6-8.5); Neutrophils Absolute Auto 5.9 K/mm3 (1.3-6.7); Neutrophils Percent Auto 75.3 % (45.5-73.1); Platelet Count Result 167 k/mm3 (150-375); Red Blood Count 4.22 M/mm3 (4.6-6.20); Red Cell Distribution Width 12.8 % (11.5-14.5); White Blood Count 7.8 K/mm3 (4.5-10.0)
[2023-03-11] MEDS: MEROPENEM 1 GM/NS 100 ML 1 GM/100 ML BAG IVPB (05:36)
[2023-03-11 05:54] LABS: Alanine Aminotransferase 37 U/L (6-50); Albumin Level 3.5 g/dL (3.5-5.1); Alkaline Phosphatase 73 U/L (38-126); Anion Gap 8 mmol/L (8-16); Aspartate Amino Transferase 38 U/L (17-59); Bilirubin,Total 0.8 mg/dL (0.2-1.3); Blood Urea Nitrogen 9 mg/dL (9-20); Calcium 8.7 mg/dL (8.4-10.2); Carbon Dioxide 24 mmol/L (22-30); Chloride 103 mmol/L (98-107); Estimated CRCL calculation 146 ml/min; Estimated Glomerular Filt Rate > 60; Glucose 94 mg/dL (65-110); Potassium 3.6 mmol/L (3.4-5.0); Sodium 135 mmol/L (137-145)
[2023-03-11 05:58] LABS: Lipase 3825 U/L (23-300)
--- NOTE | 2023-03-11 09:21 | PM.IMPN ---
Progress Note: A&P Assessment and Plan (1) Acute pancreatitis: Code(s): K85.90 - Acute pancreatitis without necrosis or infection, unspecified Status: Acute Assessment and Plan: 03/09: MR shows necrotizing pancreatitis, started on meropenem prophylaxis, GI consult appreciated, monitor closely CLD, ADAT 03/10: Cont abx prophylaxis due to necrotizing fluid collection, lipase slowly trending back up 03/11: lipase doubled, but clinically improving. Lost IV access, encourage po fluids, start cipro + flagyl po and monitor response closely, ADAT (2) Dehydration: Code(s): E86.0 - Dehydration Status: Acute Assessment and Plan: Push po fluids, monitor tachycardia closely (3) Lactic acidosis: Code(s): E87.20 - Acidosis, unspecified Status: Acute Assessment and Plan: Resolved, monitor (4) Hypertension: Code(s): I10 - Essential (primary) hypertension Status: Acute Assessment and Plan: Blood pressure reviewed 03/11 Increase clonidine to 0.1 mg q8h Plan DVT prophylaxis with lovenox GI prophylaxis with PPI Code status full code Subjective Date/time seen: 03/11/23 09:21 Interval history: 27-year-old male with hypertension who presented to the emergency department via private vehicle for evaluation of nausea, and abdominal pain and is currently being treated for acute pancreatitis of unknown etiology, likely alcohol intake. No overnight events noted. No chest pain or shortness of breath. No nausea, vomiting. No fevers or chills. Some abdominal discomfort with swallowing. Review of Systems Review of Systems: 12 point review of systems was assessed and was negative except as noted in the HPI Exam Narrative: General: No acute distress, alert and oriented per baseline HEENT: Atraumatic, normocephalic, mucous membranes moist CV: Regular rate and rhythm, S1, S2 Lungs: Clear to auscultation bilaterally, no rales or crackles noted, no wheezes, good air entry Abdomen: No TTP, ND, +BS Extremities: Normal to inspection Skin: No rashes noted, no lesions or wounds seen Psych: Euthymic, normal affect Objective Data Vital Signs Vital Signs: Vital Signs - 24 hr 03/10/23 12:27 03/10/23 13:30 03/10/23 16:50 Temperature 98.1 F Pulse Rate 114 H 94 Respiratory Rate 18 Blood Pressure 154/90 H Pulse Oximetry 99 100 Oxygen Delivery Room Air 03/10/23 16:00 03/10/23 21:25 03/10/23 20:00 Temperature 98.4 F Pulse Rate 92 96 113 H Respiratory Rate 18 Blood Pressure 169/110 H Pulse Oximetry 99 Oxygen Delivery 03/11/23 00:00 03/11/23 04:00 03/11/23 06:00 Temperature 96.5 F L Pulse Rate 92 90 86 Respiratory Rate 18 Blood Pressure 160/93 H Pulse Oximetry 100 Oxygen Delivery Intake/Output Intake/Output: Intake & Output 03/08/23 03/09/23 03/10/23 03/11/23 23:59 23:59 23:59 22:59 Intake Total 4000 3140 2620 400 Output Total 1400 1500 Balance 2600 1640 2620 400 Meds/Results Medications: Active Medications Generic Name Dose Route Start Last Admin Trade Name Freq PRN Reason Stop Dose Admin Clonidine HCl 0.1 mg 03/10/23 09:00 03/10/23 20:53 Clonidine Hcl 0.1 Mg Tablet PO 0.1 mg Q12HR CLAUDIA Administration Enoxaparin Sodium 40 mg 03/09/23 09:00 03/10/23 08:20 Enoxaparin 40 Mg/0.4 Ml Syringe SUB-Q 40 mg DAILY CLAUDIA Administration Hydralazine HCl 10 mg 03/06/23 13:46 03/10/23 04:31 Hydralazine Hcl 20 Mg/Ml Vial IV PUSH 10 mg Q6H PRN Administration SBP > 165 or DBP > 105 Meropenem 1 gm in 100 mls @ 200 mls/hr 03/09/23 13:00 03/11/23 06:06 IVPB Infused Q8HR CLAUDIA Infusion Morphine Sulfate 4 mg 03/06/23 09:15 03/08/23 23:28 Morphine Sulfate (*Crx) 4 Mg/Ml Inj IV PUSH 4 mg Q2H PRN Administration Pain Rated 7-10 Ondansetron HCl 4 mg 03/06/23 09:15 03/10/23 04:31 Ondansetron Inj 4 Mg/2 Ml Vial IV PUSH 4
[2023-03-11] MEDS: ENOXAPARIN 40 MG/0.4 ML SYRINGE SUB-Q (09:51)
[2023-03-11] MEDS: CIPROFLOXACIN 500 MG TAB PO ×2 (09:51→21:04)
[2023-03-11] MEDS: cloNIDine HCL 0.1 MG TABLET PO ×3 (09:51→21:04)
[2023-03-11] MEDS: metroNIDAZOLE 250 MG TABLET 500 MG PO ×2 (14:07→21:04)
--- NOTE | 2023-03-11 14:22 | WPDGIPROGNO ---
Progress Note: A&P Assessment and Plan (1) Necrotizing pancreatitis: Code(s): K85.91 - Acute pancreatitis with uninfected necrosis, unspecified Status: Acute Assessment and Plan: first episode, he drinks alcohol but denies being a heavy drinker MRCP reviewed, ?8.7 x 2.6 x 3.3 cm acute necrotic collection. He is on antibiotics, normal liver enzymes this will need to be monitored and based on clinical course repeat imaging may need tertiary hospital evaluation for possible EUS +/- drainage Dr Leos returns tomorrow (2) Epigastric pain: Code(s): R10.13 - Epigastric pain Status: Acute Assessment and Plan: only minimal discomfort, no nausea on CL diet for now (3) Fluid collection of pancreas: Code(s): K86.89 - Other specified diseases of pancreas Status: Acute (4) Hypertension, uncontrolled: Code(s): I10 - Essential (primary) hypertension Status: Acute (5) Dehydration: Code(s): E86.0 - Dehydration Status: Acute Subjective Date/time seen: 03/11/23 14:22 Interval history: no nausea, only dyspepsia Review of Systems Review of Systems: All systems reviewed & are unremarkable except as noted in HPI and below Exam Const: General: comfortable and no acute distress HENMT: Face/Nose/Sinus: Normal nares present Eyes: General: appearance normal, both eyes and all related structures Neck: Neck: no JVD Resp: Auscultation: clear to auscultation bilaterally Cardio: Rate: regular rate Rhythm: regular rhythm GI: GI Palp: Yes Soft to palpation, Yes Tenderness to palpation present (GI) (mild tender in epigastric, no rebound) and No Guarding due to palpation present (GI) Auscultation: normal bowel sounds Skin: General skin exam: normal color Neuro: Speech: normal speech Motor exam (neuro): 5/5 motor strength present throughout Extrem: General: normal to inspection Psych: Mental Status: mental status grossly normal Objective Data Vital Signs Vital Signs: Vital Signs - 24 hr 03/10/23 16:50 03/10/23 16:00 03/10/23 21:25 Temperature 98.4 F Pulse Rate 92 96 Respiratory Rate 18 Blood Pressure 169/110 H Pulse Oximetry 100 99 Oxygen Delivery Room Air 03/10/23 20:00 03/11/23 00:00 03/11/23 04:00 Temperature Pulse Rate 113 H 92 90 Respiratory Rate Blood Pressure Pulse Oximetry Oxygen Delivery 03/11/23 06:00 03/11/23 09:43 03/11/23 08:00 Temperature 96.5 F L Pulse Rate 86 96 94 Respiratory Rate 18 18 Blood Pressure 160/93 H 162/94 H Pulse Oximetry 100 98 Oxygen Delivery 03/11/23 09:45 03/11/23 12:00 03/11/23 13:44 Temperature 97.9 F Pulse Rate 83 106 H Respiratory Rate 16 Blood Pressure 136/92 H Pulse Oximetry 99 Oxygen Delivery Room Air Intake/Output Intake/Output: Intake & Output 03/08/23 03/09/23 03/10/23 03/11/23 23:59 23:59 23:59 22:59 Intake Total 4000 3140 2620 760 Output Total 1400 1500 Balance 2600 1640 2620 760 Meds/Results Medications: Active Medications Generic Name Dose Route Start Last Admin Trade Name Freq PRN Reason Stop Dose Admin Ciprofloxacin 500 mg 03/11/23 09:30 03/11/23 09:51 Ciprofloxacin 500 Mg Tab PO 500 mg Q12HR CLAUDIA Administration Clonidine HCl 0.1 mg 03/11/23 16:00 Clonidine Hcl 0.1 Mg Tablet PO Q8HR [facility] Enoxaparin Sodium 40 mg 03/09/23 09:00 03/11/23 09:51 Enoxaparin 40 Mg/0.4 Ml Syringe SUB-Q 40 mg DAILY CLAUDIA Administration Metronidazole 500 mg 03/11/23 14:00 03/11/23 14:07 Metronidazole 250 Mg Tablet PO 500 mg Q8HR CLAUDIA Administration Oxycodone HCl 5 mg 03/11/23 09:23 Oxycodone Hcl (*Crx) 5 Mg Tab Ir PO Q4H PRN Pain Rated 7-10 Radiology Results: ITS Impressions Upper Quadrant Ultrasound 03/06/23 08:31 IMPRESSION: 1. Diffuse hepatic steatosis. Abdomen/Pelvis CT 03/06/23 10:04 IMPRESSION: Acute pancreatitis Hepatic steatosis Small s
[2023-03-11] MEDS: SIMETHICONE 125 MG CHEW TAB PO ×2 (15:45→21:04)
--- NOTE | 2023-03-11 17:57 | PC.NURSE ---
Gave first dose of simethicone at 1545. Patient refused 1700 dose. Accidentally un-did 1545 dose instead of non-administering 1700 dose. Dose only given at 1545
[2023-03-12] VITALS (10 sets, daily range): BP systolic 134–137; BP diastolic 80–96; PULSE 80–107; RESP 16–18; TEMP 36.5–36.8; O2SAT 98–100
[2023-03-12] MEDS: cloNIDine HCL 0.1 MG TABLET PO ×3 (05:37→21:01)
[2023-03-12] MEDS: metroNIDAZOLE 250 MG TABLET 500 MG PO ×3 (05:37→21:01)
[2023-03-12 06:09] LABS: Basophils Percent Auto 0.6 % (0.2-1.2); Eosinophils Absolute Auto 0.3 K/mm3 (0-0.3); Eosinophils Percent Auto 3.5 % (0-4.4); Hemoglobin 13.1 g/dL (14.0-18.0); Immature Granulocyte Absolute 0.04 K/mm3 (0.00-0.031); Immature Granulocyte Percent A 0.6 % (0-0.5); Lymphocytes Absolute Auto 0.89 K/mm3 (0.9-3.2); Lymphocytes Percent Auto 12.3 % (18.3-44.2); Mean Corpuscular HGB Conc 34.5 g/dl (32-36); Mean Corpuscular Hemoglobin 32.5 pg (26-34); Mean Corpuscular Volume 94.3 fl (80-100); Mean Platelet Volume 8.9 fl (7.4-10.4); Monocytes Absolute Auto 0.8 K/mm3 (0.1-0.6); Monocytes Percent Auto 11.3 % (2.6-8.5); Neutrophils Absolute Auto 5.2 K/mm3 (1.3-6.7); Neutrophils Percent Auto 71.7 % (45.5-73.1); Platelet Count Result 186 k/mm3 (150-375); Red Blood Count 4.03 M/mm3 (4.6-6.20); Red Cell Distribution Width 12.9 % (11.5-14.5); White Blood Count 7.2 K/mm3 (4.5-10.0)
[2023-03-12 06:25] LABS: Alanine Aminotransferase 36 U/L (6-50); Albumin Level 3.5 g/dL (3.5-5.1); Alkaline Phosphatase 67 U/L (38-126); Anion Gap 6 mmol/L (8-16); Aspartate Amino Transferase 32 U/L (17-59); Bilirubin,Total 0.7 mg/dL (0.2-1.3); Blood Urea Nitrogen 10 mg/dL (9-20); Calcium 8.4 mg/dL (8.4-10.2); Carbon Dioxide 27 mmol/L (22-30); Chloride 100 mmol/L (98-107); Estimated CRCL calculation 145 ml/min; Estimated Glomerular Filt Rate > 60; Glucose 96 mg/dL (65-110); Potassium 3.4 mmol/L (3.4-5.0); Sodium 133 mmol/L (137-145)
[2023-03-12 06:40] LABS: Lipase 3410 U/L (23-300)
--- NOTE | 2023-03-12 08:36 | PM.IMPN ---
Progress Note: A&P Assessment and Plan (1) Acute pancreatitis: Code(s): K85.90 - Acute pancreatitis without necrosis or infection, unspecified Status: Acute Assessment and Plan: 03/09: MR shows necrotizing pancreatitis, started on meropenem prophylaxis, GI consult appreciated, monitor closely CLD, ADAT 03/10: Cont abx prophylaxis due to necrotizing fluid collection, lipase slowly trending back up 03/11: lipase doubled, but clinically improving. Lost IV access, encourage po fluids, start cipro + flagyl po and monitor response closely, ADAT 03/12: lipase slightly improving, possible need for drainage of necrotic fluid collection and transfer to tertiary care center, appreciate GI consult and recs (2) Dehydration: Code(s): E86.0 - Dehydration Status: Acute Assessment and Plan: Push po fluids, monitor tachycardia closely (3) Lactic acidosis: Code(s): E87.20 - Acidosis, unspecified Status: Acute Assessment and Plan: Resolved, monitor (4) Hypertension: Code(s): I10 - Essential (primary) hypertension Status: Acute Assessment and Plan: Blood pressure reviewed 03/12 Increase clonidine to 0.1 mg q8h Plan DVT prophylaxis with lovenox GI prophylaxis with PPI Code status full code Subjective Date/time seen: 03/12/23 08:36 Interval history: 27-year-old male with hypertension who presented to the emergency department via private vehicle for evaluation of nausea, and abdominal pain and is currently being treated for acute pancreatitis of unknown etiology, likely alcohol intake. No overnight events noted. No chest pain or shortness of breath. No nausea, vomiting. No fevers or chills. Some abdominal discomfort with swallowing. Review of Systems Review of Systems: 12 point review of systems was assessed and was negative except as noted in the HPI Exam Narrative: General: No acute distress, alert and oriented per baseline HEENT: Atraumatic, normocephalic, mucous membranes moist CV: Regular rate and rhythm, S1, S2 Lungs: Clear to auscultation bilaterally, no rales or crackles noted, no wheezes, good air entry Abdomen: No TTP, ND, +BS Extremities: Normal to inspection Skin: No rashes noted, no lesions or wounds seen Psych: Euthymic, normal affect Objective Data Vital Signs Vital Signs: Vital Signs - 24 hr 03/11/23 09:43 03/11/23 09:45 03/11/23 12:00 Temperature Pulse Rate 96 83 Respiratory Rate 18 Blood Pressure 162/94 H Pulse Oximetry 98 Oxygen Delivery Room Air 03/11/23 13:44 03/11/23 16:00 03/11/23 17:46 Temperature 97.9 F Pulse Rate 106 H 88 Respiratory Rate 16 Blood Pressure 136/92 H 158/92 H Pulse Oximetry 99 Oxygen Delivery 03/11/23 19:50 03/11/23 20:00 03/12/23 00:00 Temperature 98.4 F Pulse Rate 97 94 86 Respiratory Rate 18 Blood Pressure 161/93 H Pulse Oximetry 97 Oxygen Delivery 03/12/23 04:00 03/12/23 05:35 Temperature 98.1 F Pulse Rate 80 84 Respiratory Rate 18 Blood Pressure 134/94 H Pulse Oximetry 99 Oxygen Delivery Intake/Output Intake/Output: Intake & Output 03/10/23 03/11/23 03/11/23 03/12/23 00:59 00:59 23:59 23:59 Intake Total Output Total Balance Meds/Results Medications: Active Medications Generic Name Dose Route Start Last Admin Trade Name Freq PRN Reason Stop Dose Admin Ciprofloxacin 500 mg 03/11/23 09:30 03/11/23 21:04 Ciprofloxacin 500 Mg Tab PO 500 mg Q12HR CLAUDIA Administration Clonidine HCl 0.1 mg 03/11/23 16:00 03/12/23 05:37 Clonidine Hcl 0.1 Mg Tablet PO 0.1 mg Q8HR CLAUDIA Administration Enoxaparin Sodium 40 mg 03/09/23 09:00 03/11/23 09:51 Enoxaparin 40 Mg/0.4 Ml Syringe SUB-Q 40 mg DAILY CLAUDIA Administration Metronidazole 500 mg 03/11/23 14:00 03/12/23 05:37 Metronidazole 250 Mg Tablet PO 500 mg Q8HR CLAUDIA Administration Oxycodon
[2023-03-12] MEDS: SIMETHICONE 125 MG CHEW TAB PO ×4 (09:03→21:02)
[2023-03-12] MEDS: CIPROFLOXACIN 500 MG TAB PO ×2 (09:03→21:02)
[2023-03-12] MEDS: ENOXAPARIN 40 MG/0.4 ML SYRINGE SUB-Q (09:04)
--- NOTE | 2023-03-12 11:44 | WPDGIPROGNO ---
Progress Note: A&P Assessment and Plan (1) Necrotizing pancreatitis: Code(s): K85.91 - Acute pancreatitis with uninfected necrosis, unspecified Status: Acute Assessment and Plan: Patient with necrotizing pancreatitis. No indication for fever. No indication for infection. Patient was placed on empiric antibiotics. Patient continues to have elevated lipase. Currently over 3000. Will allow liquids. Continue to observe closely. Monitor LFTs. Patient may required transfer to tertiary care center for endoscopic ultrasound and drainage of this fluid collection. Follow-up imaging suggested this week. Continue to monitor labs with LFTs and pancreatic enzymes. (2) Fluid collection of pancreas: Code(s): K86.89 - Other specified diseases of pancreas Status: Acute Subjective Date/time seen: 03/12/23 11:44 Interval history: Patient alert comfortable this morning. Tolerating liquids. Denies abdominal pain. Some chest discomfort with drinking liquids. No fever noted. Review of Systems Review of Systems: Review of systems noncontributory. Exam Narrative: Physical exam reveals patient be alert. Patient is afebrile. Vital signs stable. HEENT exam unremarkable. Patient is anicteric. Lungs are clear to auscultation and percussion. Heart is without murmur or extra sounds. Abdomen bowel sounds present soft nontender with no tenderness. No masses. No bleeding reported. Objective Data Vital Signs Vital Signs: Vital Signs - 24 hr 03/11/23 12:00 03/11/23 13:44 03/11/23 16:00 Temperature 97.9 F Pulse Rate 83 106 H 88 Respiratory Rate 16 Blood Pressure 136/92 H Pulse Oximetry 99 Oxygen Delivery 03/11/23 17:46 03/11/23 19:50 03/11/23 20:00 Temperature 98.4 F Pulse Rate 97 94 Respiratory Rate 18 Blood Pressure 158/92 H 161/93 H Pulse Oximetry 97 Oxygen Delivery 03/12/23 00:00 03/12/23 04:00 03/12/23 05:35 Temperature 98.1 F Pulse Rate 86 80 84 Respiratory Rate 18 Blood Pressure 134/94 H Pulse Oximetry 99 Oxygen Delivery 03/12/23 09:17 03/12/23 09:00 03/12/23 08:00 Temperature 97.7 F Pulse Rate 98 85 Respiratory Rate 16 Blood Pressure 135/80 Pulse Oximetry 99 Oxygen Delivery Room Air Intake/Output Intake/Output: Intake & Output 03/10/23 03/11/23 03/11/23 03/12/23 00:59 00:59 23:59 23:59 Intake Total 345 Output Total Balance 345 Meds/Results Medications: Active Medications Generic Name Dose Route Start Last Admin Trade Name Freq PRN Reason Stop Dose Admin Ciprofloxacin 500 mg 03/11/23 09:30 03/12/23 09:03 Ciprofloxacin 500 Mg Tab PO 500 mg Q12HR CLAUDIA Administration Clonidine HCl 0.1 mg 03/11/23 16:00 03/12/23 05:37 Clonidine Hcl 0.1 Mg Tablet PO 0.1 mg Q8HR CLAUDIA Administration Enoxaparin Sodium 40 mg 03/09/23 09:00 03/12/23 09:04 Enoxaparin 40 Mg/0.4 Ml Syringe SUB-Q 40 mg DAILY CLAUDIA Administration Metronidazole 500 mg 03/11/23 14:00 03/12/23 05:37 Metronidazole 250 Mg Tablet PO 500 mg Q8HR CLAUDIA Administration Oxycodone HCl 5 mg 03/11/23 09:23 Oxycodone Hcl (*Crx) 5 Mg Tab Ir PO Q4H PRN Pain Rated 7-10 Simethicone 125 mg 03/11/23 14:55 03/12/23 09:03 Simethicone 125 Mg Chew Tab PO 125 mg QID CLAUDIA Administration Radiology Results: ITS Impressions Upper Quadrant Ultrasound 03/06/23 08:31 IMPRESSION: 1. Diffuse hepatic steatosis. Abdomen/Pelvis CT 03/06/23 10:04 IMPRESSION: Acute pancreatitis Hepatic steatosis Small sliding hiatal hernia Abdomen Ultrasound 03/08/23 20:10 IMPRESSION: 1: Hepatic steatosis. 2: Pancreas not adequately visualized. Consider correlation with MRI of the abdomen without and with contrast for further assessment of pancreas. MRCP 03/09/23 10:52 IMPRESSION: 1. Acute necrotic pancreatitis with 8.7 x 2.6 x 3.3 cm acute necrotic c
--- NOTE | 2023-03-12 15:13 | PC.NURSE ---
All care, medications and assessments performed by Jo Valladares, Student Nurse/[facility] has been completed under direct supervision of [facility] Director Of Hotel [employer] or Nursing Staff. Charting has been reviewed and agree with same. Any questions or concerns presented by patient and/or family has been relayed to appropriate staff.
[2023-03-12 17:23] LABS: Alanine Aminotransferase 37 U/L (6-50); Albumin Level 3.5 g/dL (3.5-5.1); Alkaline Phosphatase 72 U/L (38-126); Anion Gap 7 mmol/L (8-16); Aspartate Amino Transferase 36 U/L (17-59); Bilirubin,Total 0.7 mg/dL (0.2-1.3); Blood Urea Nitrogen 10 mg/dL (9-20); Calcium 8.8 mg/dL (8.4-10.2); Carbon Dioxide 27 mmol/L (22-30); Chloride 101 mmol/L (98-107); Estimated CRCL calculation 164 ml/min; Estimated Glomerular Filt Rate > 60; Glucose 86 mg/dL (65-110); Potassium 3.6 mmol/L (3.4-5.0); Sodium 135 mmol/L (137-145)
[2023-03-12 17:31] LABS: Lipase 2660 U/L (23-300)
[2023-03-13] VITALS (9 sets, daily range): BP systolic 126–143; BP diastolic 75–95; PULSE 74–111; RESP 16–18; TEMP 36.5–36.7; O2SAT 98–100
[2023-03-13] MEDS: cloNIDine HCL 0.1 MG TABLET PO ×3 (05:20→20:19)
[2023-03-13] MEDS: metroNIDAZOLE 250 MG TABLET 500 MG PO ×3 (05:20→20:18)
[2023-03-13 06:16] LABS: Basophils Percent Auto 0.6 % (0.2-1.2); Eosinophils Absolute Auto 0.2 K/mm3 (0-0.3); Eosinophils Percent Auto 3.5 % (0-4.4); Hematocrit 39.2 % (42.0-52.0); Hemoglobin 13.4 g/dL (14.0-18.0); Immature Granulocyte Absolute 0.06 K/mm3 (0.00-0.031); Immature Granulocyte Percent A 0.9 % (0-0.5); Lymphocytes Percent Auto 14.5 % (18.3-44.2); Mean Corpuscular HGB Conc 34.2 g/dl (32-36); Mean Corpuscular Hemoglobin 32.6 pg (26-34); Mean Corpuscular Volume 95.4 fl (80-100); Mean Platelet Volume 8.9 fl (7.4-10.4); Monocytes Absolute Auto 0.8 K/mm3 (0.1-0.6); Neutrophils Absolute Auto 4.7 K/mm3 (1.3-6.7); Neutrophils Percent Auto 68.5 % (45.5-73.1); Platelet Count Result 222 k/mm3 (150-375); Red Blood Count 4.11 M/mm3 (4.6-6.20); Red Cell Distribution Width 12.8 % (11.5-14.5); White Blood Count 6.9 K/mm3 (4.5-10.0)
[2023-03-13 06:40] LABS: Alanine Aminotransferase 34 U/L (6-50); Albumin Level 3.5 g/dL (3.5-5.1); Alkaline Phosphatase 61 U/L (38-126); Anion Gap 9 mmol/L (8-16); Aspartate Amino Transferase 34 U/L (17-59); Bilirubin,Total 0.8 mg/dL (0.2-1.3); Blood Urea Nitrogen 10 mg/dL (9-20); Calcium 8.5 mg/dL (8.4-10.2); Carbon Dioxide 26 mmol/L (22-30); Chloride 100 mmol/L (98-107); Estimated CRCL calculation 164 ml/min; Estimated Glomerular Filt Rate > 60; Glucose 92 mg/dL (65-110); Potassium 3.1 mmol/L (3.4-5.0); Sodium 135 mmol/L (137-145)
[2023-03-13] MEDS: ENOXAPARIN 40 MG/0.4 ML SYRINGE SUB-Q (08:39)
[2023-03-13] MEDS: CIPROFLOXACIN 500 MG TAB PO ×2 (08:39→20:18)
[2023-03-13] MEDS: SIMETHICONE 125 MG CHEW TAB PO ×4 (08:39→20:18)
--- NOTE | 2023-03-13 10:51 | WPDGIPROGNO ---
Progress Note: A&P Assessment and Plan (1) Necrotizing pancreatitis: Code(s): K85.91 - Acute pancreatitis with uninfected necrosis, unspecified Status: Acute Assessment and Plan: Patient with necrotizing pancreatitis. He does have alcohol intake history. This potentially contributes to his pancreatitis although may be idiopathic. Patient currently tolerating liquid diet asymptomatic clinically. Imaging studies have shown necrosis with fluid collection adjacent to the pancreas. Plan to continue to monitor lipase. Will advance diet slowly. Continue activity. If symptoms develop then referral for the EUS and endoscopic drainage may be necessary. Hopefully this can be avoided. Follow-up CT scan at some point will be necessary. (2) Fluid collection of pancreas: Code(s): K86.89 - Other specified diseases of pancreas Status: Acute Subjective Date/time seen: 03/13/23 10:51 Interval history: Patient alert comfortable this morning. Denies abdominal pain. Tolerating laxatives. Up in room ambulating without difficulty. Review of Systems Review of Systems: Review of systems noncontributory. Exam Narrative: Physical exam reveals patient to be alert. Vital signs stable. HEENT exam is unremarkable. Patient anicteric. Lungs are clear. Heart without murmur. Abdomen bowel sounds present soft nontender with no organomegaly. Objective Data Vital Signs Vital Signs: Vital Signs - 24 hr 03/12/23 12:00 03/12/23 13:39 03/12/23 16:00 Temperature 98.2 F Pulse Rate 95 97 88 Respiratory Rate 17 Blood Pressure 135/96 H Pulse Oximetry 100 Oxygen Delivery 03/12/23 20:00 03/12/23 21:19 03/13/23 00:00 Temperature 97.9 F Pulse Rate 93 107 H 79 Respiratory Rate 18 Blood Pressure 137/93 H Pulse Oximetry 98 Oxygen Delivery 03/13/23 04:00 03/13/23 05:12 03/13/23 08:30 Temperature 98.0 F Pulse Rate 74 76 Respiratory Rate 18 Blood Pressure 143/95 H Pulse Oximetry 99 Oxygen Delivery Room Air 03/13/23 08:00 Temperature Pulse Rate 84 Respiratory Rate Blood Pressure Pulse Oximetry Oxygen Delivery Intake/Output Intake/Output: Intake & Output 03/11/23 03/11/23 03/12/23 03/13/23 00:59 23:59 23:59 23:59 Intake Total 4852 690 Balance 1729 690 Meds/Results Medications: Active Medications Generic Name Dose Route Start Last Admin Trade Name Freq PRN Reason Stop Dose Admin Ciprofloxacin 500 mg 03/11/23 09:30 03/13/23 08:39 Ciprofloxacin 500 Mg Tab PO 500 mg Q12HR CLAUDIA Administration Clonidine HCl 0.1 mg 03/11/23 16:00 03/13/23 05:20 Clonidine Hcl 0.1 Mg Tablet PO 0.1 mg Q8HR CLAUDIA Administration Enoxaparin Sodium 40 mg 03/09/23 09:00 03/13/23 08:39 Enoxaparin 40 Mg/0.4 Ml Syringe SUB-Q 40 mg DAILY CLAUDIA Administration Metronidazole 500 mg 03/11/23 14:00 03/13/23 05:20 Metronidazole 250 Mg Tablet PO 500 mg Q8HR CLAUDIA Administration Oxycodone HCl 5 mg 03/11/23 09:23 Oxycodone Hcl (*Crx) 5 Mg Tab Ir PO Q4H PRN Pain Rated 7-10 Simethicone 125 mg 03/11/23 14:55 03/13/23 08:39 Simethicone 125 Mg Chew Tab PO 125 mg QID CLAUDIA Administration Radiology Results: ITS Impressions Upper Quadrant Ultrasound 03/06/23 08:31 IMPRESSION: 1. Diffuse hepatic steatosis. Abdomen/Pelvis CT 03/06/23 10:04 IMPRESSION: Acute pancreatitis Hepatic steatosis Small sliding hiatal hernia Abdomen Ultrasound 03/08/23 20:10 IMPRESSION: 1: Hepatic steatosis. 2: Pancreas not adequately visualized. Consider correlation with MRI of the abdomen without and with contrast for further assessment of pancreas. MRCP 03/09/23 10:52 IMPRESSION: 1. Acute necrotic pancreatitis with 8.7 x 2.6 x 3.3 cm acute necrotic collection. 2. Diffuse hepatic steatosis. 3. Small pleural effusions. Chest CTA 03/10/23 14:43 IMPRESSION: 1. No d
--- NOTE | 2023-03-13 11:07 | PM.IMPN ---
Progress Note: A&P Assessment and Plan (1) Acute pancreatitis: Code(s): K85.90 - Acute pancreatitis without necrosis or infection, unspecified Status: Acute Assessment and Plan: 03/09: MR shows necrotizing pancreatitis, started on meropenem prophylaxis, GI consult appreciated, monitor closely CLD, ADAT 03/10: Cont abx prophylaxis due to necrotizing fluid collection, lipase slowly trending back up 03/11: lipase doubled, but clinically improving. Lost IV access, encourage po fluids, start cipro + flagyl po and monitor response closely, ADAT 03/12: lipase slightly improving, possible need for drainage of necrotic fluid collection and transfer to tertiary care center, appreciate GI consult and recs 03/13: lipase trending down, increase diet, if tolerating low fat diet, would d/c home on po abx and close outpatient f/u for resolution of the necrotic fluid collection or transfer for EUS and drainage if increased diet causes symptoms (2) Dehydration: Code(s): E86.0 - Dehydration Status: Acute Assessment and Plan: Push po fluids, monitor tachycardia closely (3) Lactic acidosis: Code(s): E87.20 - Acidosis, unspecified Status: Acute Assessment and Plan: Resolved, monitor (4) Hypertension: Code(s): I10 - Essential (primary) hypertension Status: Acute Assessment and Plan: Blood pressure reviewed 03/13 Increase clonidine to 0.1 mg q8h Plan DVT prophylaxis with lovenox GI prophylaxis with PPI Code status full code Subjective Date/time seen: 03/13/23 11:07 Interval history: 27-year-old male with hypertension who presented to the emergency department via private vehicle for evaluation of nausea, and abdominal pain and is currently being treated for acute pancreatitis of unknown etiology, likely alcohol intake. No overnight events noted. No chest pain or shortness of breath. No nausea, vomiting. No fevers or chills. No abdominal pain. Review of Systems Review of Systems: 12 point review of systems was assessed and was negative except as noted in the HPI Exam Narrative: General: No acute distress, alert and oriented per baseline HEENT: Atraumatic, normocephalic, mucous membranes moist CV: Regular rate and rhythm, S1, S2 Lungs: Clear to auscultation bilaterally, no rales or crackles noted, no wheezes, good air entry Abdomen: Soft, NT/ND Extremities: Normal to inspection Skin: No rashes noted, no lesions or wounds seen Psych: Euthymic, normal affect Objective Data Vital Signs Vital Signs: Vital Signs - 24 hr 03/12/23 12:00 03/12/23 13:39 03/12/23 16:00 Temperature 98.2 F Pulse Rate 95 97 88 Respiratory Rate 17 Blood Pressure 135/96 H Pulse Oximetry 100 Oxygen Delivery 03/12/23 20:00 03/12/23 21:19 03/13/23 00:00 Temperature 97.9 F Pulse Rate 93 107 H 79 Respiratory Rate 18 Blood Pressure 137/93 H Pulse Oximetry 98 Oxygen Delivery 03/13/23 04:00 03/13/23 05:12 03/13/23 08:30 Temperature 98.0 F Pulse Rate 74 76 Respiratory Rate 18 Blood Pressure 143/95 H Pulse Oximetry 99 Oxygen Delivery Room Air 03/13/23 08:00 Temperature Pulse Rate 84 Respiratory Rate Blood Pressure Pulse Oximetry Oxygen Delivery Intake/Output Intake/Output: Intake & Output 03/11/23 03/11/23 03/12/23 03/13/23 00:59 23:59 23:59 23:59 Intake Total 1895 690 Balance 1895 690 Meds/Results Medications: Active Medications Generic Name Dose Route Start Last Admin Trade Name Freq PRN Reason Stop Dose Admin Ciprofloxacin 500 mg 03/11/23 09:30 03/13/23 08:39 Ciprofloxacin 500 Mg Tab PO 500 mg Q12HR CLAUDIA Administration Clonidine HCl 0.1 mg 03/11/23 16:00 03/13/23 05:20 Clonidine Hcl 0.1 Mg Tablet PO 0.1 mg Q8HR CLAUDIA Administration Enoxaparin Sodium 40 mg 03/09/23 09:00 03/13/23 08:39 Enoxaparin 40 Mg/0.4 Ml Syringe SUB-Q 40 mg
--- NOTE | 2023-03-13 11:25 | PCNWS ---
Weekly nutritional screen. Patient is tolerating current diet with adequate intake. No weight loss reported. No nutritional needs at this time.
[2023-03-13 11:41] LABS: Lipase 2316 U/L (23-300)
[2023-03-14] VITALS (7 sets, daily range): BP systolic 121–128; BP diastolic 75–85; PULSE 76–99; RESP 15–20; TEMP 35.7–37; O2SAT 98–99
[2023-03-14] MEDS: cloNIDine HCL 0.1 MG TABLET PO ×2 (05:15→13:12)
[2023-03-14] MEDS: metroNIDAZOLE 250 MG TABLET 500 MG PO ×2 (05:15→13:12)
[2023-03-14 05:18] LABS: Basophils Percent Auto 0.4 % (0.2-1.2); Eosinophils Absolute Auto 0.2 K/mm3 (0-0.3); Eosinophils Percent Auto 2.8 % (0-4.4); Hematocrit 42.1 % (42.0-52.0); Hemoglobin 13.8 g/dL (14.0-18.0); Immature Granulocyte Absolute 0.09 K/mm3 (0.00-0.031); Immature Granulocyte Percent A 1.3 % (0-0.5); Lymphocytes Absolute Auto 1.35 K/mm3 (0.9-3.2); Mean Corpuscular HGB Conc 32.8 g/dl (32-36); Mean Corpuscular Hemoglobin 31.9 pg (26-34); Mean Corpuscular Volume 97.2 fl (80-100); Mean Platelet Volume 9.2 fl (7.4-10.4); Monocytes Absolute Auto 0.8 K/mm3 (0.1-0.6); Monocytes Percent Auto 11.7 % (2.6-8.5); Neutrophils Absolute Auto 4.6 K/mm3 (1.3-6.7); Neutrophils Percent Auto 64.8 % (45.5-73.1); Platelet Count Result 268 k/mm3 (150-375); Red Blood Count 4.33 M/mm3 (4.6-6.20); Red Cell Distribution Width 12.9 % (11.5-14.5); White Blood Count 7.1 K/mm3 (4.5-10.0)
[2023-03-14 05:31] LABS: Alanine Aminotransferase 41 U/L (6-50); Albumin Level 3.4 g/dL (3.5-5.1); Alkaline Phosphatase 61 U/L (38-126); Anion Gap 5 mmol/L (8-16); Aspartate Amino Transferase 49 U/L (17-59); Bilirubin,Total 0.7 mg/dL (0.2-1.3); Blood Urea Nitrogen 10 mg/dL (9-20); Calcium 8.5 mg/dL (8.4-10.2); Carbon Dioxide 29 mmol/L (22-30); Chloride 102 mmol/L (98-107); Estimated CRCL calculation 130 ml/min; Estimated Glomerular Filt Rate > 60; Glucose 98 mg/dL (65-110); Potassium 3.5 mmol/L (3.4-5.0); Sodium 136 mmol/L (137-145)
[2023-03-14 07:30] LABS: Lipase 1982 U/L (23-300)
[2023-03-14 08:11] LABS: Triglycerides 96 mg/dL (<150)
[2023-03-14] MEDS: CIPROFLOXACIN 500 MG TAB PO (08:16)
[2023-03-14] MEDS: SIMETHICONE 125 MG CHEW TAB PO ×3 (08:16→16:37)
[2023-03-14] MEDS: ENOXAPARIN 40 MG/0.4 ML SYRINGE SUB-Q (08:21)
--- NOTE | 2023-03-14 08:21 | WPDGIPROGNO ---
Progress Note: A&P Assessment and Plan (1) Necrotizing pancreatitis: Code(s): K85.91 - Acute pancreatitis with uninfected necrosis, unspecified Status: Acute Assessment and Plan: Patient alert comfortable today. Currently pain free in asymptomatic. Lipase is decreased. Patient now tolerating diet. Hopefully patient can be discharged with outpatient follow-up. Would recommend follow-up CT scan be performed to follow-up on the fluid congested collection adjacent to the pancreas. He may benefit from referral to [facility] for center for endoscopic ultrasound as an outpatient. (2) Fluid collection of pancreas: Code(s): K86.89 - Other specified diseases of pancreas Status: Acute Subjective Date/time seen: 03/14/23 08:21 Interval history: Patient improving. Currently asymptomatic. Denies abdominal pain. Tolerating low-fat diet with no difficulties. Review of Systems Review of Systems: Review of systems noncontributory. Exam Narrative: Physical exam reveals patient be alert. Vital signs stable. Comfortable at rest. HEENT exam unremarkable. Patient anicteric. Lungs are clear. Heart without murmur. Abdomen bowel sounds are present soft nontender with no organomegaly. Objective Data Vital Signs Vital Signs: Vital Signs - 24 hr 03/13/23 08:30 03/13/23 13:22 03/13/23 12:00 Temperature 97.7 F Pulse Rate 111 H 80 Respiratory Rate 16 Blood Pressure 126/81 Pulse Oximetry 100 Oxygen Delivery Room Air 03/13/23 16:00 03/13/23 21:03 03/13/23 20:00 Temperature 98.1 F Pulse Rate 83 93 89 Respiratory Rate 17 18 Blood Pressure 126/75 Pulse Oximetry 98 99 Oxygen Delivery Room Air 03/13/23 20:00 03/14/23 00:00 03/14/23 04:00 Temperature Pulse Rate 100 86 84 Respiratory Rate Blood Pressure Pulse Oximetry Oxygen Delivery 03/14/23 05:52 Temperature 96.3 F L Pulse Rate 76 Respiratory Rate 20 Blood Pressure 128/85 Pulse Oximetry 98 Oxygen Delivery Intake/Output Intake/Output: Intake & Output 03/11/23 03/12/23 03/13/23 03/14/23 23:59 23:59 23:59 23:59 Intake Total 1895 1850 500 Balance 1895 1850 500 Meds/Results Medications: Active Medications Generic Name Dose Route Start Last Admin Trade Name Freq PRN Reason Stop Dose Admin Ciprofloxacin 500 mg 03/11/23 09:30 03/14/23 08:16 Ciprofloxacin 500 Mg Tab PO 500 mg Q12HR CLAUDIA Administration Clonidine HCl 0.1 mg 03/11/23 16:00 03/14/23 05:15 Clonidine Hcl 0.1 Mg Tablet PO 0.1 mg Q8HR CLAUDIA Administration Enoxaparin Sodium 40 mg 03/09/23 09:00 03/13/23 08:39 Enoxaparin 40 Mg/0.4 Ml Syringe SUB-Q 40 mg DAILY CLAUDIA Administration Metronidazole 500 mg 03/11/23 14:00 03/14/23 05:15 Metronidazole 250 Mg Tablet PO 500 mg Q8HR CLAUDIA Administration Oxycodone HCl 5 mg 03/11/23 09:23 Oxycodone Hcl (*Crx) 5 Mg Tab Ir PO Q4H PRN Pain Rated 7-10 Simethicone 125 mg 03/11/23 14:55 03/14/23 08:16 Simethicone 125 Mg Chew Tab PO 125 mg QID CLAUDIA Administration Radiology Results: ITS Impressions Upper Quadrant Ultrasound 03/06/23 08:31 IMPRESSION: 1. Diffuse hepatic steatosis. Abdomen/Pelvis CT 03/06/23 10:04 IMPRESSION: Acute pancreatitis Hepatic steatosis Small sliding hiatal hernia Abdomen Ultrasound 03/08/23 20:10 IMPRESSION: 1: Hepatic steatosis. 2: Pancreas not adequately visualized. Consider correlation with MRI of the abdomen without and with contrast for further assessment of pancreas. MRCP 03/09/23 10:52 IMPRESSION: 1. Acute necrotic pancreatitis with 8.7 x 2.6 x 3.3 cm acute necrotic collection. 2. Diffuse hepatic steatosis. 3. Small pleural effusions. Chest CTA 03/10/23 14:43 IMPRESSION: 1. No definitive pulmonary embolism with evaluation significantly limited in the segmental and subsegmental pulmonary arteries in the bilater
--- NOTE | 2023-03-14 16:37 | PM.DS ---
DS: Admitting Diagnosis Discharge Date 03/14/23 Admitting Diagnosis Nausea, vomiting, abdominal pain DS: Discharge Diagnosis Discharge Diagnosis (1) Acute pancreatitis: Code(s): K85.90 - Acute pancreatitis without necrosis or infection, unspecified Status: Acute (2) Dehydration: Code(s): E86.0 - Dehydration Status: Acute (3) Lactic acidosis: Code(s): E87.20 - Acidosis, unspecified Status: Acute (4) Hypertension: Code(s): I10 - Essential (primary) hypertension Status: Acute DS: Summary Hospital Course Reason for hospitalization: 27-year-old male with hypertension who presented to the emergency department via private vehicle for evaluation of nausea, and abdominal pain.?Please see H&P for details. Hospital Course: On presentation, patient's blood pressures as high as 172/118. Pertinent labs include a WBC count of 19.6, hemoglobin 19.7, lactic acid 4.4, lipase 1781, total protein 9.0, albumin 5.4. CT of the abdomen and pelvis showed acute pancreatitis, hepatic steatosis, and small sliding hiatal hernia. He received 30 mL/kg bolus of normal saline, 4 mg IV morphine, and 4 mg IV ondansetron and was admitted. GI consulted. Abdominal US showing no gallstones. MRCP showing acute necrotic pancreatitis with 8.7cm acute necrotic collection. CTA of the chest was performed due to elevated DDimer and tachycardia. CTA showing no definitive PE but limited due to motion artifact. He was started on IV abx. WBC was elevated on admission but normalized the next day and remained normal. He completed almost a week of abx and no plans to continue at discharge. BP was elevated during his hospital course treated with clonidine. He has a history of HTN so will continue this at discharge. He does drink 5-8 alcoholic drinks usually over a weekend. He was educated about the benefits of abstaining from alcohol use. He was started on clear liquid diet once his symptoms improved. Lipase peaked at 3825 before trending down. His diet was advanced which he toelrated well without abdominal pain or worsening lipase levels. Repeat CT Abd/Pelvis on the day of discharge showing acute necrotizing pancreatitis with focal necrosis at the tail and developing fluid collection along the greater curvature the stomach measuring 6cm. GI felt patient may benefit from a referal to a tertiary care center. Patient overall did well and was able to be discharged home on 03/14/23. Status at Discharge Cognitive/behavioral status at discharge: stable Time Spent with Patient Time attestation: Total time spent providing and/or coordinating discharge services: 35 minutes Time spent: Greater than 30 minutes Exam Narrative: AF 96.3 128/85 86 20 98% ra Gen - NARD Chest - CTA bilaterally, nml RR CV - RRR S1/S2 Abd - Soft, NT/ND, Positive BS Ext - No pedal edema Neuro - Alert and oriented. Nonfocal exam. Psych - Nml mood and affect Skin - Warm and dry DS: Data Data Completed and Pending Labs on day of discharge: Labs from last 24 hours 03/14/23 03/14/23 04:38 04:36 WBC 7.1 RBC 4.33 L Hgb 13.8 L Hct 42.1 MCV 97.2 MCH 31.9 MCHC 32.8 RDW 12.9 Plt Count 268 MPV 9.2 Immature Gran % (Auto) 1.3 H Neut % (Auto) 64.8 Lymph % (Auto) 19.0 [facility] % (Auto) 11.7 H Eos % (Auto) 2.8 Baso % (Auto) 0.4 Lymph # (Auto) 1.35 [facility] # (Auto) 0.8 H Eos # (Auto) 0.2 Baso # (Auto) 0.0 Abs Immat Gran (auto) 0.09 H Absolute Neuts (auto) 4.6 Absolute Nucleated RBC 0.0 Nucleated RBC % 0.0 Sodium 136 L Potassium 3.5 Chloride 102 Carbon Dioxide 29 Anion Gap 5 L BUN 10 Creatinine 0.90 Estim Creat Clear Calc 130 Estimated GFR > 60 Glucose 98 Calcium 8.5 Total Bilirubin 0.7 AST 49 ALT 41 Alkaline Phosphatase 61 Total Protein 7.0 Albumin 3.4 L Triglycerides 96 Lipase 1982 H IgG Pending IgG1 Pending IgG2 Pending IgG3 Pe
[2023-03-17 00:51] LABS: Immunoglobulin G, Serum 831 mg/dL (600-1640); Immunoglobulin G1 456 mg/dL (382-929); Immunoglobulin G2 247 mg/dL (241-700); Immunoglobulin G3 61 mg/dL (22-178); Immunoglobulin G4 36.4 mg/dL (4.0-86.0)
--- NOTE | 2023-03-20 09:54 | PC.NURSE ---
IgG series 1-[address] Tong aware.
== END 2023-03-14 17:25 | disposition home or self-care (01) | DRG 439 ==
LOC: ANHED 08:37 → ANHLDR 10:03 → ANH3MEDSUR 10:22 → ANHIMU 11:26 → ANH2MED 17:04
PROVIDERS: Emergency Medicine; Internal Medicine Gastroenterology; Physician Assistant; Student in an Organized Health Care Education/Training Program; Admitting Provider Internal Medicine; Emergency Provider Emergency Medicine; PCP Family Medicine; Visit Provider Internal Medicine
DX: K85.81 Other acute pancreatitis with uninfected necrosis (principal); E87.20 Acidosis, unspecified; E86.0 Dehydration; I10 Essential (primary) hypertension; K76.0 Fatty (change of) liver, not elsewhere classified; K44.9 Diaphragmatic hernia without obstruction or gangrene; Z28.21 Immunization not carried out because of patient refusal
CPT/HCPCS: 36415; 71275; 74177; 74183; 76376; 76705; 80048; 80053; 81001; 82784; 82787; 83605; 83690; 83735; 84145; 84478; 85025; 85027; 85055; 85380; 86140; 87040; 96361; 96374; 96375; 96376; 99285; A9270; A9577; C9113; G0378; J0360; J1170; J1650; J2185; J2270; J2405; J2550; J3411; J3480; J7030; J7040; J7050; Q9967

== ENCOUNTER 2023-04-19 08:32 | Outpatient (CLI) | payer BC, SELFPAY ==
--- NOTE | ~2023-04-19 | CT_ITS ---
CT of the Abdomen and Pelvis: Indication: Acute Technique: 2.5 mm axial scans were obtained through the abdomen and pelvis following intravenous adm inistration of 100 cc of Omnipaque 350. Dose reduction technique was used on this scan by utilizing a utomated exposure control and iterative reconstruction technique. The dose-length product (DLP) was 6 49.22 mGy-cm. COMPARISON: 03/14/2023 Findings: Scans through the lung bases are unremarkable. The liver, gallbladder, adrenals and right kidney are within normal limits. Punctate nonobstructing l eft renal stone present. Heterogeneous fluid/inflammatory change adjacent to the tail of pancreas is decreased in size/extent from prior exam, compatible with improving sequela of pancreatitis. Spleen i s borderline enlarged. No evidence of aortic aneurysm. No lymphadenopathy. No bowel obstruction or bowel wall thickening. There is no evidence to suggest acute appendicitis. Images through the pelvis were performed. Urinary bladder unremarkable. No pelvic mass seen. No ascit es. Impression: Decreasing peripancreatic inflammatory change/collection, compatible with improving walled off necros is/sequela of acute pancreatitis. Punctate nonobstructing left renal stone. Borderline splenic clinically. Reviewed, dictated and finalized at location . [facility]PRESENT[facility]IVE Impression: Decreasing peripancreatic inflammatory change/collection, compatible with impro ving walled off necrosis/sequela of acute pancreatitis. Punctate nonobstructing left renal stone. Borderline splenic clinically.
[2023-04-19 09:11] LABS: Estimated Glomerular Filt Rate > 60
== END 2023-04-19 08:33 | disposition home or self-care (01) ==
PROVIDERS: PCP Family Medicine; Visit Provider Internal Medicine Gastroenterology
DX: K85.91 Acute pancreatitis with uninfected necrosis, unspecified (principal); N20.0 Calculus of kidney
CPT/HCPCS: 74177; Q9967

== ENCOUNTER 2023-12-23 14:18 | Inpatient (IN) | payer OTHER, SELFPAY ==
--- NOTE | ~2023-12-23 | CT_ITS ---
EXAMINATION: CT abdomen pelvis w con DATE: 12/23/2023 17:31 INDICATION: Generalized abdominal pain. Elevated serum lipase. History of pancreatitis. TECHNIQUE: Computed tomography (CT) of the abdomen and pelvis was performed with 100 CC Omnipaque 350 intravenous contrast. Automated exposure control and iterative reconstruction technique were employe d. Exam dose: 741.12 mGy-cm total exam DLP. COMPARISON: 04/19/2023 CT abdomen pelvis FINDINGS: The lung bases are clear. Normal heart size. No pericardial or pleural effusion. Small sliding hiatal hernia. There is diffuse hepatic steatosis. No hepatic space-occupying mass lesion is evident. Normal splenic size. The gallbladder is unremarkable without wall thickening or pericholecystic fluid or fat stranding. There is prominent peripancreatic fat stranding with fat stranding extending around the adjacent stom ach and into the anterior pararenal area with fluid and thickening along the left anterior pararenal fascia, mild fat stranding and fluid and thickening in the region of the lateral conal fascia along t he lower splenic margin. Findings are consistent with acute pancreatitis. There is diminishing size of a hypoattenuating lesion along the pancreatic tail since 04/19/2023 and 03/14/2023, likely resolving sequela of prior pancreatitis episode. This currently measures approximat jorge 2.2 x 2.2 cm compared to approximately 3.4 x 3.7 cm on 04/19/2023. Spleen is within normal limits for size. There is a splenule. Normal morphology of the adrenal glands. 1.8 cm right renal cyst. No urinary tract calculus or hydroureteronephrosis. Normal caliber of the abdominal aorta. No intraperitoneal or retroperitoneal or pelvic mass lesion or adenopathy or ascites. The urinary bladder is relatively evacuated apparently unremarkable. Normal appearance of the prostat e gland and seminal vesicles. Scattered colonic diverticula. No bowel obstruction or intraperitoneal free air. Small fat-containing umbilical hernia. IMPRESSION: Acute interstitial pancreatitis Serially improving sequela of prior pericarditis and pancreatic tail Reviewed, dictated and finalized at Location [facility]. Reviewed, dictated and finalized at location J.
--- NOTE | ~2023-12-23 | US_ITS ---
EXAMINATION: US abdomen limited DATE: 12/24/2023 19:10 INDICATION: pancreatitis TECHNIQUE: Multiple grayscale and Doppler ultrasound images of limited portions of the abdomen were o btained. COMPARISON: CT abdomen pelvis, same date. FINDINGS: Pancreas poorly visualized. Diffusely echogenic liver parenchyma. No surface nodularity. No rmal hepatopetal flow in the main portal vein. The gallbladder is normal with no abnormal wall thicke bhavin, pericholecystic fluid or stones. The common bile duct measures 2 mm. There was no sonographic M urphy sign. IMPRESSION: Echogenic liver, most commonly due to steatosis but also can be seen with hepatitis and fibrosis. Sonographically normal gallbladder. Reviewed, dictated and finalized at location K. IMPRESSION: Echogenic liver, most commonly due to steatosis but also can be seen with hepat itis and fibrosis. Sonographically normal gallbladder.
--- NOTE | ~2023-12-23 | XR_ITS ---
XR abdomen/kub 1V Ordering provider: Zandra Vasquez APRN History: . constipation . Comparison: None. FINDINGS: BOWEL: Nonobstructive bowel gas pattern. ORGANOMEGALY: None. SIGNIFICANT PATHOLOGIC CALCIFICATIONS: None. OTHER: No free air is seen under the diaphragm. IMPRESSION: NO ACUTE ABDOMINAL FINDINGS. Reviewed, dictated and finalized at location A.
[2023-12-23 14:46] VITALS: BP 145/90; PULSE 89; RESP 20; TEMP 36.8; O2SAT 98
[2023-12-23 16:21] VITALS: BP 152/104; PULSE 88; RESP 20; O2SAT 99
[2023-12-23 16:29] LABS: Basophils Percent Auto 0.1 % (0.2-1.2); Eosinophils Percent Auto 0.1 % (0-4.4); Hematocrit 47.4 % (42.0-52.0); Hemoglobin 17.4 g/dL (14.0-18.0); Immature Granulocyte Absolute 0.05 K/mm3 (0.00-0.031); Immature Granulocyte Percent A 0.4 % (0-0.5); Lymphocytes Absolute Auto 1.36 K/mm3 (0.9-3.2); Mean Corpuscular HGB Conc 36.7 g/dl (32-36); Mean Corpuscular Hemoglobin 33.5 pg (26-34); Mean Corpuscular Volume 91.3 fl (80-100); Mean Platelet Volume 8.9 fl (7.4-10.4); Monocytes Absolute Auto 0.9 K/mm3 (0.1-0.6); Monocytes Percent Auto 6.3 % (2.6-8.5); Neutrophils Absolute Auto 11.3 K/mm3 (1.3-6.7); Neutrophils Percent Auto 83.1 % (45.5-73.1); Platelet Count Result 268 k/mm3 (150-375); Red Blood Count 5.19 M/mm3 (4.6-6.20); Red Cell Distribution Width 13.5 % (11.5-14.5); White Blood Count 13.7 K/mm3 (4.5-10.0)
[2023-12-23 16:47] LABS: Alanine Aminotransferase 43 U/L (6-50); Albumin Level 5.2 g/dL (3.5-5.1); Alkaline Phosphatase 156 U/L (38-126); Anion Gap 14 mmol/L (4-12); Aspartate Amino Transferase 36 U/L (17-59); Bilirubin,Total 1.6 mg/dL (0.2-1.3); Blood Urea Nitrogen 16 mg/dL (9-20); Calcium 9.8 mg/dL (8.4-10.2); Carbon Dioxide 26 mmol/L (22-30); Chloride 100 mmol/L (98-107); Estimated CRCL calculation 103 ml/min; Estimated Glomerular Filt Rate > 60; Glucose 130 mg/dL (65-110); Lipase 3622 U/L (23-300); Potassium 4.1 mmol/L (3.4-5.0); Sodium 140 mmol/L (137-145)
--- NOTE | 2023-12-23 16:49 | ED.ABDPAIN ---
HPI - Abdominal Pain General Chief Complaint: Abdominal Pain <TRICE Marte Last Filed: 12/23/23 19:48> Stated Complaint: abd pain <TRICE Marte Last Filed: 12/23/23 19:48> Time Seen by Provider: 12/23/23 16:12 <TRICE Marte Last Filed: 12/23/23 19:48> Source: patient <Lilian TRICE Edgar Last Filed: 12/23/23 19:48> Mode of arrival: ambulatory <TRICE Marte Last Filed: 12/23/23 19:48> Limitations: no limitations <TRICE Marte Last Filed: 12/23/23 19:48> History of Present Illness HPI narrative: This is a 28 year old male that presents to the ER for mid abdominal pain. Ongoing since this morning. Reports history of pancreatitis. Reports associated nausea and vomiting. Denies fever, diarrhea, dysuria or hematuria. <TRICE Marte Last Filed: 12/23/23 19:48> Related Data Home Medications: Home Medications Medication Instructions Recorded Confirmed lisinopril 10 mg tablet 10 mg PO DAILY 04/11/23 <TRICE Marte Last Filed: 12/23/23 19:48> Allergies/Adverse Reactions: Allergies Allergy/AdvReac Type Severity Reaction Status Date / Time No Known Allergies Allergy Verified 12/23/23 14:53 <TRICE Marte Last Filed: 12/23/23 19:48> Review of Systems Review of Systems: CONSTITUTIONAL: Denies fever GASTROINTESTINAL: Reports abdominal pain, nausea, vomiting. Denies diarrhea. GENITOURINARY: Denies dysuria or hematuria. <TRICE Marte Last Filed: 12/23/23 19:48> All systems reviewed & are unremarkable except as noted in HPI and below <TRICE Marte Last Filed: 12/23/23 19:48> [facility] Past Medical History Medical History: Medical History Epigastric pain Fluid collection of pancreas Hypertension Previously prescribed metoprolol however he did not notice any difference in his blood pressures. He continues to do ambulatory blood pressure monitoring and reports that it has never been over 140/90. Necrotizing pancreatitis <Lilian Medina PA-C - Last Filed: 12/23/23 19:48> Surgical History Surgical History: Surgical History History of tonsillectomy (2009) <Lilian Medina PA-C - Last Filed: 12/23/23 19:48> Family History Family History: Family History Other Family history non-contributory <Lilian Medina PA-C - Last Filed: 12/23/23 19:48> Social History Social History: Social History Social History: Surrogate medical decision maker: Lala Galvan, mother. Code status: Full code. Smoking status: Never smoker Alcohol intake: current Drinks per week: 8 Substance use: never Substance use type: does not use Lack of Transportation: No Lack of Food: Never True Current Housing: I Have Housing Concerned About Future Housing: No Difficulty Paying Gas/Electric Bills: No Difficulty Paying for Meds: No Currently Unemployed: No Education: Bachelor's Degree Difficulty w/ Childcare or Family Care: No Spiritual care concerns: No <Lilian Medina PA-C - Last Filed: 12/23/23 19:48> Exam Narrative: GENERAL: Well-appearing, well-nourished, and in mild acute distress due to pain. HEAD: Normocephalic, atraumatic. EYES: EOMI. CHEST: Clear to auscultation. No respiratory distress. No wheezes rales or rhonchi HEART: Regular rate and rhythm. No murmur heard. Normal peripheral pulses. ABDOMEN: Soft, nondistended, normal active bowel sounds. Tender to palpation throughout the abdomen, without guarding EXTREMITIES: Normal range of motion. No edema. SKIN: Warm, dry, no rash. NEURO: No focal deficits. Alert and oriented x3. PSYCH: Normal mood and affect <Lilian Medina PA-C - Last
[2023-12-23] MEDS: ONDANSETRON INJ 4 MG/2 ML VIAL IV PUSH ×2 (16:54→20:38)
[2023-12-23] MEDS: MORPHINE SULFATE (*CRX) 4 MG/ML INJ IV PUSH ×2 (16:54→20:32)
[2023-12-23] MEDS: SODIUM CHLORIDE 0.9% IV 1,000 ML 999 ML IV CONT ×2 (16:55→18:50)
[2023-12-23 17:01] LABS: Add Urine Microscopic? YES; Appearance Urine Clear (Clear); Bacteria Urine None Seen /hpf; Bilirubin Urine 2+ (Negative); Blood Urine Negative (Negative); Color Urine Dark Yellow (Yellow); Glucose Urine UA Negative (Negative); Ketones Urine 2+ mg/dL (Negative); Leukocyte Esterase Ur Negative LEU/UL (Negative); Need Manual Microscopic Reviewed; Nitrate Urine Negative (Negative); Protein Urine 3+ mg/dL (Negative); RBC Urine 0-2 /hpf (0-2); Specific Grav Ur 1.039 (1.001-1.035); Squamous Epithelial Cell Urine None Seen /hpf (Few); WBC Urine 0-5 /hpf (0-3); pH Urine 5.5 (5.0-9.0)
[2023-12-23 18:01] VITALS: BP 152/106; PULSE 98; RESP 19; O2SAT 99
[2023-12-23] MEDS: diphenhydrAMINE HCl INJ 50 MG/ML VIAL 25 MG IV PUSH (18:51)
[2023-12-23] MEDS: METOCLOPRAMIDE HCL INJ 10 MG/2 ML VIAL IV PUSH (18:54)
[2023-12-23 19:32] VITALS: BP 158/105; PULSE 78; RESP 18; O2SAT 99
[2023-12-23 19:40] VITALS: BP 140/90; PULSE 71; RESP 20; TEMP 36.5; O2SAT 100
--- NOTE | 2023-12-23 19:54 | ADMGEN ---
This patient, Eligio Galvan, was admitted to 3 [facility] Surg Room 317-02. Patient/family oriented to hospital policies and general routines including ID bracelet, bed and alarms, visiting hours, pain management, procedures, bathroom and other care routines, personal items, smoking policy, room service/diet, and visiting hours. Information on how to activate the Rapid Response Team has been discussed. Patient/Family are encouraged to report perceived risks to care and to ask questions if they do not understand what they are told or what they should do.
[2023-12-23] MEDS: SODIUM CHLORIDE 0.9% IV 1,000 ML 125 ML IV CONT (20:32)
--- NOTE | 2023-12-23 21:30 | PM.IMHP ---
H&P: HPI History of Present Illness Date/Time: 12/23/23 21:30 Chief Complaint: Abdominal pain. Narrative: This is a 28-year-old male with history of pancreatitis in February 2023 thought to be idiopathic in etiology and hypertension who presented to the emergency department for evaluation of abdominal pain. The patient provides the following history. He felt fine when he went to sleep at night and was awakened about 06:30 with upper abdominal pain. He describes a sharp and shooting pain which has settled more so in the left upper quadrant with some radiation through to the back. He has also been having sweats, nausea, and vomiting. Symptoms are similar to when he had is pancreatitis last year. He denies significant alcohol use and has not had any recent binges. He was started on Truvada for pre exposure prophylaxis hold December 11. He has not had any other recent medication changes. No known history of hypertriglyceridemia. He denies fever, hematemesis, melena, hematochezia, dysuria, chest pain, and shortness of breath. In the ED: He was afebrile on arrival. Blood pressures have been elevated. Labs were significant for WBC count of 13.7, hemoglobin 17.4, total bili I 0.6, AST 36, ALT 43, alkaline phosphatase 156, lipase 3622, total protein 9.0, albumin 5.2. Urine was concentrated with 3+ protein and 2+ ketones. CT of the abdomen and pelvis showed acute interstitial pancreatitis. He was given pain medications and antiemetics and is being admitted in this setting for further treatment of pancreatitis. Review of Systems Review of Systems: 12 systems were reviewed and are negative except for as per HPI. [facility] Past Medical History Medical History (Updated 12/23/23 @ 23:28 by Dedra Bautista PA-C) Hypertension Previously prescribed metoprolol however he did not notice any difference in his blood pressures. He continues to do ambulatory blood pressure monitoring and reports that it has never been over 140/90. Necrotizing pancreatitis Surgical History Surgical History History of tonsillectomy (2009) Family History Family History Other Family history non-contributory Social History Social History Social History: Surrogate medical decision maker: Lala Galvan, mother. Code status: Full code. Smoking status: Never smoker Alcohol intake: current Drinks per week: 8 Substance use: never Substance use type: does not use Do You Feel Safe in your Home?: Yes Lack of Transportation: No Lack of Food: Never True Current Housing: I Have Housing Concerned About Future Housing: No Difficulty Paying Gas/Electric Bills: No Difficulty Paying for Meds: No Currently Unemployed: No Education: Bachelor's Degree Difficulty w/ Childcare or Family Care: No Spiritual care concerns: No Meds Home Medications and Allergies Home Medications Medication Instructions Recorded Confirmed Type lisinopril 10 mg tablet 10 mg PO DAILY 04/11/23 12/23/23 History emtricitabine 200 mg-tenofovir 1 tablet PO DAILY 12/23/23 12/23/23 History disoproxil fumarate 300 mg tablet Allergies Allergy/AdvReac Type Severity Reaction Status Date / Time No Known Allergies Allergy Verified 12/23/23 14:53 Vital Signs Vital Signs - 24 hr 12/23/23 14:46 12/23/23 16:21 12/23/23 18:01 Temperature 98.3 F Pulse Rate 89 88 98 Respiratory Rate 20 20 19 Blood Pressure 145/90 H 152/104 H 152/106 H Pulse Oximetry 98 99 99 Oxygen Delivery Room Air 12/23/23 19:32 12/23/23 19:40 12/23/23 19:59 Temperature 97.7 F Pulse Rate 78 71 Respiratory Rate 18 20 Blood Pressure 158/105 H 140/90 Pulse Oximetry 99 100 Oxygen Delivery Room Air 12/23/23 20:00 Temperature Pulse Rate Respiratory Rate Blood Pressure Pulse Oximetry Oxygen Deliv
[2023-12-23] MEDS: HYDROmorphone HCL INJ (*CRX) 1 MG/ML SYR IV PUSH (22:13)
[2023-12-24] MEDS: HYDROmorphone HCL INJ (*CRX) 1 MG/ML SYR IV PUSH ×5 (01:17→14:27)
[2023-12-24] MEDS: SODIUM CHLORIDE 0.9% IV 1,000 ML 150 ML IV CONT ×4 (04:24→23:40)
[2023-12-24] MEDS: ONDANSETRON INJ 4 MG/2 ML VIAL IV PUSH ×2 (04:26→10:20)
[2023-12-24 06:00] VITALS: BP 138/96; PULSE 100; RESP 18; TEMP 36.4; O2SAT 99
[2023-12-24 07:16] LABS: Basophils Percent Auto 0.1 % (0.2-1.2); Eosinophils Absolute Auto 0.1 K/mm3 (0-0.3); Eosinophils Percent Auto 1.4 % (0-4.4); Hematocrit 40.1 % (42.0-52.0); Hemoglobin 14.4 g/dL (14.0-18.0); Immature Granulocyte Absolute 0.03 K/mm3 (0.00-0.031); Immature Granulocyte Percent A 0.4 % (0-0.5); Lymphocytes Absolute Auto 1.24 K/mm3 (0.9-3.2); Lymphocytes Percent Auto 15.3 % (18.3-44.2); Mean Corpuscular HGB Conc 35.9 g/dl (32-36); Mean Corpuscular Hemoglobin 33.7 pg (26-34); Mean Corpuscular Volume 93.9 fl (80-100); Monocytes Absolute Auto 0.7 K/mm3 (0.1-0.6); Monocytes Percent Auto 8.4 % (2.6-8.5); Neutrophils Percent Auto 74.4 % (45.5-73.1); Platelet Count Result 164 k/mm3 (150-375); Red Blood Count 4.27 M/mm3 (4.6-6.20); White Blood Count 8.1 K/mm3 (4.5-10.0)
[2023-12-24 07:43] LABS: Alanine Aminotransferase 28 U/L (6-50); Alkaline Phosphatase 105 U/L (38-126); Anion Gap 11 mmol/L (4-12); Aspartate Amino Transferase 24 U/L (17-59); Bilirubin,Total 0.9 mg/dL (0.2-1.3); Blood Urea Nitrogen 11 mg/dL (9-20); Calcium 8.4 mg/dL (8.4-10.2); Carbon Dioxide 21 mmol/L (22-30); Chloride 105 mmol/L (98-107); Estimated CRCL calculation 143 ml/min; Estimated Glomerular Filt Rate > 60; Glucose 108 mg/dL (65-110); Potassium 4.1 mmol/L (3.4-5.0); Sodium 137 mmol/L (137-145); Triglycerides 157 mg/dL (<150)
[2023-12-24 07:46] LABS: Lipase 3350 U/L (23-300)
--- NOTE | 2023-12-24 10:51 | PM.IMPN ---
Progress Note: A&P Assessment and Plan (1) Acute pancreatitis: Qualifiers: Acute pancreatitis complication: no infection or necrosis Pancreatitis type: unspecified pancreatitis type Qualified Code(s): K85.90 - Acute pancreatitis without necrosis or infection, unspecified Code(s): K85.90 - Acute pancreatitis without necrosis or infection, unspecified Status: Acute Assessment and Plan: 12/24/23: CT of the abdomen pelvis showing acute interstitial pancreatitis was superiorly improving sequelae of prior pancreatitis at pancreatic tail Initial white blood cell count 13.7, blood glucose 130, total bili 1.6, alk-phos 156, lipase 3622. Patient was given 2 L of normal saline in the ED and started on normal saline at 100 mL/hr Will start clear liquid diet today Will get US of pancreas today Continue pain and nausea control, Added [place] (2) Dehydration: Code(s): E86.0 - Dehydration Status: Acute Assessment and Plan: 12/24/23: Likely secondary to acute interstitial pancreatitis Patient given 2 L of normal saline in the ED and started on normal saline at 100 mL/hr (3) Hypertension: Code(s): I10 - Essential (primary) hypertension Status: Acute Assessment and Plan: 12/24/23: Blood pressure ranging 138/96 to 158/105 Continue lisinopril Time Spent With Patient Time with patient: Greater than 35 minutes Subjective Date/time seen: 12/24/23 10:51 Interval history: Interval history: This is a 28-year-old male with history of pancreatitis he came to the hospital on 12/23/2023 with increased abdominal pain. Workup in the hospital included a abdomen/pelvis CT showing acute interstitial pancreatitis with superiorly improving sequel of prior pancreatitis at pancreatic tail. Initial labs showed a white blood cell count 13.7, anion gap 14, blood sugar 130, total bili 1.6, alk-phos 156, lipase 3622. UA was obtained and showed a urine specific gravity of 1.039, 3+ protein, 2+ urine ketone, 2+ urine bili, otherwise unremarkable. Patient was given 2 L of normal saline, morphine, Zofran, Reglan, Benadryl, dilaudid while in the ED. Subjective: 12/24/23: Patient denies any fever, chills, nausea, vomiting, diarrhea, shortness of breath, chest pain. Patient endorses abdominal pain that he rates as 6/10 and colicky at times, bloating, itching of the skin. Labs and imaging reviewed. Review of Systems Review of Systems: All systems reviewed & are unremarkable except as noted in HPI and below Constitutional: Constitutional: Reports as per HPI and Reports no additional constitutional complaints Eyes: Eyes: Reports as per HPI and Reports no additional eye complaints ENT: Reports system reviewed and no additional complaints, except as documented and Reports as per HPI Cardiovascular: Cardiovascular: Reports as per HPI and Reports no additional cardiovascular complaints Respiratory: Respiratory: Reports as per HPI and Reports no additional respiratory complaints Gastrointestinal: Gastrointestinal: Reports as per HPI and Reports no additional gastrointestinal complaints Genitourinary: Genitourinary: Reports no additional male genitourinary complaints and Reports as per HPI Musculoskeletal: Musculoskeletal: Reports no additional musculoskeletal complaints and Reports as per HPI Integumentary/Breasts: Skin/Breast: Reports system reviewed and no additional complaints, except as docu and Reports as per HPI Neurologic: Reports system reviewed and no additional complaints, except as documented and Reports as per HPI Psychiatric: Psychiatric: Reports no additional psychiatric complaints and Reports as per HPI Exam Narrative: General: In no acute distress, well nourished Head: atraumatic, no encephalopathy Eyes: EOMI, PERRLA, sclera clear ENT: moist mucous membranes, nasal passages clear Neck: supple, no JVD, no adenopathy, trachea midline Cardiac: Normal S1 and S2. RRR, No murmur,
[2023-12-24 13:56] VITALS: BP 136/94; PULSE 93; RESP 16; TEMP 36.4; O2SAT 98
[2023-12-24] MEDS: HYDROcodone/acetaminophen (*CRX) 10-325 MG TABLET 1 TAB PO ×2 (18:26→23:22)
[2023-12-24 21:26] VITALS: BP 129/81; PULSE 95; RESP 20; TEMP 36.8; O2SAT 100
[2023-12-25 04:43] VITALS: BP 128/88; PULSE 89; RESP 19; TEMP 36.5; O2SAT 99
[2023-12-25] MEDS: SODIUM CHLORIDE 0.9% IV 1,000 ML 150 ML IV CONT (06:06)
[2023-12-25] MEDS: HYDROcodone/acetaminophen (*CRX) 10-325 MG TABLET 1 TAB PO ×2 (06:06→20:02)
[2023-12-25] MEDS: lisinopriL 10 MG TABLET PO (08:57)
[2023-12-25] MEDS: HYDROcodone/acetaminophen (*CRX) 5-325 MG TABLET 1 TAB PO (10:37)
[2023-12-25] MEDS: polyethylene glycoL 3350 17 GM POWD.PACK PO (10:37)
[2023-12-25 11:13] LABS: Basophils Percent Auto 0.3 % (0.2-1.2); Eosinophils Absolute Auto 0.3 K/mm3 (0-0.3); Eosinophils Percent Auto 4.7 % (0-4.4); Hematocrit 40.5 % (42.0-52.0); Hemoglobin 14.2 g/dL (14.0-18.0); Immature Granulocyte Absolute 0.02 K/mm3 (0.00-0.031); Immature Granulocyte Percent A 0.3 % (0-0.5); Lymphocytes Absolute Auto 1.25 K/mm3 (0.9-3.2); Lymphocytes Percent Auto 20.4 % (18.3-44.2); Mean Corpuscular HGB Conc 35.1 g/dl (32-36); Mean Corpuscular Hemoglobin 33.2 pg (26-34); Mean Corpuscular Volume 94.6 fl (80-100); Mean Platelet Volume 8.8 fl (7.4-10.4); Monocytes Absolute Auto 0.5 K/mm3 (0.1-0.6); Monocytes Percent Auto 8.6 % (2.6-8.5); Neutrophils Percent Auto 65.7 % (45.5-73.1); Platelet Count Result 153 k/mm3 (150-375); Red Blood Count 4.28 M/mm3 (4.6-6.20); Red Cell Distribution Width 13.9 % (11.5-14.5); White Blood Count 6.1 K/mm3 (4.5-10.0)
[2023-12-25 11:30] LABS: Lipase 846 U/L (23-300)
[2023-12-25 11:33] LABS: Alanine Aminotransferase 22 U/L (6-50); Albumin Level 3.9 g/dL (3.5-5.1); Alkaline Phosphatase 94 U/L (38-126); Anion Gap 7 mmol/L (4-12); Aspartate Amino Transferase 23 U/L (17-59); Bilirubin,Total 1.2 mg/dL (0.2-1.3); Blood Urea Nitrogen 5 mg/dL (9-20); Calcium 8.3 mg/dL (8.4-10.2); Carbon Dioxide 27 mmol/L (22-30); Chloride 100 mmol/L (98-107); Estimated CRCL calculation 164 ml/min; Estimated Glomerular Filt Rate > 60; Glucose 91 mg/dL (65-110); Potassium 3.7 mmol/L (3.4-5.0); Sodium 134 mmol/L (137-145)
--- NOTE | 2023-12-25 14:54 | PM.IMPN ---
Progress Note: A&P Assessment and Plan (1) Acute pancreatitis: Qualifiers: Acute pancreatitis complication: no infection or necrosis Pancreatitis type: unspecified pancreatitis type Qualified Code(s): K85.90 - Acute pancreatitis without necrosis or infection, unspecified Code(s): K85.90 - Acute pancreatitis without necrosis or infection, unspecified Status: Acute Assessment and Plan: 12/24/23: CT of the abdomen pelvis showing acute interstitial pancreatitis was superiorly improving sequelae of prior pancreatitis at pancreatic tail Initial white blood cell count 13.7, blood glucose 130, total bili 1.6, alk-phos 156, lipase 3622. Patient was given 2 L of normal saline in the ED and started on normal saline at 100 mL/hr Will start clear liquid diet today Will get US of pancreas today Continue pain and nausea control, Added [place] 12/25/23: Pancreatitis likely secondary to Truvada. Patient started this medication recently however has history of pancreatitis in the past. Tolerating clear liquid diet, however not tolerating Full liquid diet today. Miralax ordered US of Liver shown echogenic liver, most commonly due to steatosis versus hepatitis. KUB showing nonobstructive gas pattern, no ileus Continue pain control (2) Dehydration: Code(s): E86.0 - Dehydration Status: Acute Assessment and Plan: 12/24/23: Likely secondary to acute interstitial pancreatitis Patient given 2 L of normal saline in the ED and started on normal saline at 100 mL/hr 12/25/23: No change (3) Hypertension: Code(s): I10 - Essential (primary) hypertension Status: Acute Assessment and Plan: 12/24/23: Blood pressure ranging 138/96 to 158/105 Continue lisinopril 12/25/23: No change to current treatment plan Time Spent With Patient Time with patient: 25 - 35 minutes Subjective Date/time seen: 12/25/23 14:54 Interval history: Interval history: This is a 28-year-old male with history of pancreatitis he came to the hospital on 12/23/2023 with increased abdominal pain. Workup in the hospital included a abdomen/pelvis CT showing acute interstitial pancreatitis with superiorly improving sequel of prior pancreatitis at pancreatic tail. Initial labs showed a white blood cell count 13.7, anion gap 14, blood sugar 130, total bili 1.6, alk-phos 156, lipase 3622. UA was obtained and showed a urine specific gravity of 1.039, 3+ protein, 2+ urine ketone, 2+ urine bili, otherwise unremarkable. Patient was given 2 L of normal saline, morphine, Zofran, Reglan, Benadryl, dilaudid while in the ED. Subjective: 12/25/23: Patient reporting bloating feeling in abdomen. Pain is better controlled. He states that he feels like he needs to have a bowel movement but has not been passing gas or finding relief with the Miralax. He was tolerating clear liquid diet and was advanced to full diet but he states that after the full diet tray it feels like the food is just sitting heavy on his stomach. He denies any nausea or vomiting overnight. Labs and imaging reviewed. Review of Systems Review of Systems: 12 systems were reviewed and are negative except for as per HPI. All systems reviewed & are unremarkable except as noted in HPI and below Constitutional: Constitutional: Reports as per HPI and Reports no additional constitutional complaints Eyes: Eyes: Reports as per HPI and Reports no additional eye complaints ENT: Reports system reviewed and no additional complaints, except as documented and Reports as per HPI Cardiovascular: Cardiovascular: Reports as per HPI and Reports no additional cardiovascular complaints Respiratory: Respiratory: Reports as per HPI and Reports no additional respiratory complaints Gastrointestinal: Gastrointestinal: Reports as per HPI and Reports no additional gastrointestinal complaints Genitourinary: Genitourinary: Reports no additional male genitourinary complaints and R
[2023-12-25 18:00] VITALS: BP 124/68; PULSE 74; RESP 16; TEMP 36.6; O2SAT 98
[2023-12-25 22:00] VITALS: BP 130/80; PULSE 93; RESP 18; TEMP 37.2; O2SAT 98
[2023-12-26 05:56] VITALS: BP 133/90; PULSE 94; RESP 18; TEMP 35.5; O2SAT 99
[2023-12-26 06:37] LABS: Basophils Percent Auto 0.4 % (0.2-1.2); Eosinophils Absolute Auto 0.3 K/mm3 (0-0.3); Eosinophils Percent Auto 5.4 % (0-4.4); Hematocrit 40.8 % (42.0-52.0); Immature Granulocyte Absolute 0.01 K/mm3 (0.00-0.031); Immature Granulocyte Percent A 0.2 % (0-0.5); Lymphocytes Absolute Auto 1.22 K/mm3 (0.9-3.2); Lymphocytes Percent Auto 22.8 % (18.3-44.2); Mean Corpuscular HGB Conc 34.3 g/dl (32-36); Mean Corpuscular Volume 96.2 fl (80-100); Mean Platelet Volume 9.3 fl (7.4-10.4); Monocytes Absolute Auto 0.5 K/mm3 (0.1-0.6); Monocytes Percent Auto 8.8 % (2.6-8.5); Neutrophils Absolute Auto 3.3 K/mm3 (1.3-6.7); Neutrophils Percent Auto 62.4 % (45.5-73.1); Platelet Count Result 156 k/mm3 (150-375); Red Blood Count 4.24 M/mm3 (4.6-6.20); White Blood Count 5.4 K/mm3 (4.5-10.0)
[2023-12-26 06:46] LABS: Alanine Aminotransferase 21 U/L (6-50); Albumin Level 4.1 g/dL (3.5-5.1); Alkaline Phosphatase 98 U/L (38-126); Anion Gap 9 mmol/L (4-12); Aspartate Amino Transferase 23 U/L (17-59); Blood Urea Nitrogen 5 mg/dL (9-20); Calcium 8.9 mg/dL (8.4-10.2); Carbon Dioxide 27 mmol/L (22-30); Chloride 98 mmol/L (98-107); Estimated CRCL calculation 143 ml/min; Estimated Glomerular Filt Rate > 60; Glucose 92 mg/dL (65-110); Potassium 3.8 mmol/L (3.4-5.0); Sodium 134 mmol/L (137-145)
[2023-12-26] MEDS: lisinopriL 10 MG TABLET PO (08:59)
[2023-12-26] MEDS: polyethylene glycoL 3350 17 GM POWD.PACK PO (09:09)
[2023-12-26 09:10] VITALS: O2SAT 99
--- NOTE | 2023-12-26 10:19 | PM.DS ---
DS: Admitting Diagnosis Discharge Date 12/26/23 Admitting Diagnosis Acute Pancreatitis without necrosis Dehydration Hypertension DS: Discharge Diagnosis Discharge Diagnosis (1) Acute pancreatitis: Qualifiers: Acute pancreatitis complication: no infection or necrosis Pancreatitis type: unspecified pancreatitis type Qualified Code(s): K85.90 - Acute pancreatitis without necrosis or infection, unspecified Code(s): K85.90 - Acute pancreatitis without necrosis or infection, unspecified Status: Acute (2) Dehydration: Code(s): E86.0 - Dehydration Status: Acute (3) Hypertension: Code(s): I10 - Essential (primary) hypertension Status: Acute DS: Summary Hospital Course Reason for hospitalization: Acute Pancreatitis without necrosis Dehydration Hypertension Hospital Course: This is a 28-year-old male with history of pancreatitis he came to the hospital on 12/23/2023 with increased abdominal pain. Workup in the hospital included a abdomen/pelvis CT showing acute interstitial pancreatitis with superiorly improving sequel of prior pancreatitis at pancreatic tail. Initial labs showed a white blood cell count 13.7, anion gap 14, blood sugar 130, total bili 1.6, alk-phos 156, lipase 3622. UA was obtained and showed a urine specific gravity of 1.039, 3+ protein, 2+ urine ketone, 2+ urine bili, otherwise unremarkable. Patient was given 2 L of normal saline, morphine, Zofran, Reglan, Benadryl, dilaudid while in the ED. Diet was advanced to Full liquid and he is tolerating well. He is down to 407 on Lipase. Feeling much improved. He is stable for discharge at this time. He will need to follow up with PCP in 1 week. He was instructed to stop using Truvada. Final diagnosis: Acute pancreatitis, dehydration Status at Discharge Cognitive/behavioral status at discharge: Alert oriented x4 Functional status at discharge: independent ambulation Overall status at discharge: patient is progressing back to baseline Time Spent with Patient Time attestation: Total time spent providing and/or coordinating discharge services: Time spent: Greater than 30 minutes Exam Narrative: General: In no acute distress, well nourished Cardiac: Normal S1 and S2. RRR, No murmur, gallops or friction rubs, peripheral pulses intact. Respiratory: Lungs clear to auscultation, no adventitious lung sounds, currently on room air Gastrointestinal: soft, mildly distended, Mild tenderness noted in epigastric region, normoactive bowel sounds. He is passing gas : voiding without difficulty. Neuro: Alert and oriented x4 DS: Data Data Completed and Pending Completed studies during hospitalization: Abdomen x-ray Abdomen ultrasound Abdomen/pelvis CT Pending studies at discharge: None Labs on day of discharge: Labs from last 24 hours 12/26/23 12/25/23 05:59 10:58 WBC 5.4 6.1 RBC 4.24 L 4.28 L Hgb 14.0 14.2 Hct 40.8 L 40.5 L MCV 96.2 94.6 MCH 33.0 33.2 MCHC 34.3 35.1 RDW 14.0 13.9 Plt Count 156 153 MPV 9.3 8.8 Immature Gran % (Auto) 0.2 0.3 Neut % (Auto) 62.4 65.7 Lymph % (Auto) 22.8 20.4 [place] % (Auto) 8.8 H 8.6 H Eos % (Auto) 5.4 H 4.7 H Baso % (Auto) 0.4 0.3 Lymph # (Auto) 1.22 1.25 [place] # (Auto) 0.5 0.5 Eos # (Auto) 0.3 0.3 Baso # (Auto) 0.0 0.0 Abs Immat Gran (auto) 0.01 0.02 Absolute Neuts (auto) 3.3 4.0 Absolute Nucleated RBC 0.000 0.000 Nucleated RBC % 0.0 0.0 Sodium 134 L 134 L Potassium 3.8 3.7 Chloride 98 100 Carbon Dioxide 27 27 Anion Gap 9 7 BUN 5 L 5 L D Creatinine 0.80 0.70 Estim Creat Clear Calc 143 164 Estimated GFR > 60 > 60 Glucose 92 91 Calcium 8.9 8.3 L Total Bilirubin 1.0 1.2 AST 23 23 ALT 21 22 Alkaline Phosphatase 98 94 Total Protein 8.0 7.0 Albumin 4.1 3.9 Lipase 846 H Procedures/Treatments: None Discharge Plan Discharge Attending physician on discharge: Nell Eugene
[2023-12-26 10:38] LABS: Lipase 407 U/L (23-300)
[2023-12-26] MEDS: BISACODYL 5 MG TABLET EC PO (12:29)
[2023-12-26 14:00] VITALS: BP 120/83; PULSE 84; RESP 12; TEMP 36.8; O2SAT 99
== END 2023-12-26 16:11 | disposition home or self-care (01) | DRG 440 ==
LOC: ANHED 16:29 → ANH3MEDSUR 19:30
PROVIDERS: Admitting Provider General Practice; Emergency Provider Physician Assistant; PCP Family Medicine; Visit Provider Nurse Practitioner Acute Care
DX: K85.80 Other acute pancreatitis without necrosis or infection (principal); E86.0 Dehydration; I10 Essential (primary) hypertension
CPT/HCPCS: 36415; 74018; 74177; 76705; 80053; 81001; 83690; 84478; 85025; 96361; 96374; 96375; 96376; 99285; A9270; G0378; J1170; J1200; J2270; J2405; J2765; J7030; Q9967

== ENCOUNTER 2024-06-22 18:59 | Inpatient (IN) | payer OTHER, SELFPAY ==
--- NOTE | ~2024-06-22 | XR_ITS ---
EXAMINATION: XR chest 1V portable DATE: 06/26/2024 10:05 INDICATION: Shortness of breath TECHNIQUE: frontal view of the chest was obtained. COMPARISON: Chest radiograph dated 06/22/2024 FINDINGS: Unchanged mild elevation the left hemidiaphragm. No focal airspace opacities, pulmonary edema, pleura l effusion or pneumothorax. The cardiomediastinal silhouette is normal. Visualized bones and soft tis sues are unremarkable. IMPRESSION: 1. Mild elevation the left hemidiaphragm. No other acute cardiopulmonary disease. Reviewed, dictated and finalized at location A. RBARIC WELDER DIVER IMPRESSION: 1. Mild elevation the left hemidiaphragm. No other acute cardiopulmonary diseas e.
--- NOTE | ~2024-06-22 | XR_ITS ---
Portable chest x-ray Comparison: None Clinical History: Nausea and vomiting Findings: Lungs are clear, without focal consolidation or pleural effusion. Cardiomediastinal silho uette is unremarkable. Bones and soft tissues are unremarkable. Impression: Clear lungs. Reviewed, dictated and finalized at location M. RVISOR POLICY CHANGE CLERKS Impression: Clear lungs.
--- NOTE | ~2024-06-22 | CT_ITS ---
Non-contrast CT scan of the Abdomen and Pelvis Clinical indication: Epigastric pain Technique: 2.5 mm axial scans were obtained through the abdomen and pelvis without intravenous or or al contrast. Dose reduction technique was used on this scan by utilizing automated exposure control a nd iterative reconstruction technique. The dose-length product (DLP) was 1008.90 mGy-cm. COMPARISON: 12/23/2023 Findings: Images through the lung bases reveal no abnormalities. 2 mm nonobstructing left renal stone present. No right renal stone. No ureteral stone or hydronephros is. There is diffuse fatty infiltration of the liver. There is borderline splenomegaly. There is minimal infiltrative change about the pancreas, suggestive of mild acute pancreatitis. The gallbladder and ad renals appear normal. There is no aortic aneurysm. There is no evidence of bowel obstruction. Images through the pelvis were performed. There is small amount of pelvic ascites. Urinary bladder un remarkable. No pelvic mass seen. Impression: Mild acute pancreatitis. Associated small amount of pelvic ascites. Borderline splenomegaly. 2 mm nonobstructing left renal stone. Diffuse hepatic steatosis. Reviewed, dictated and finalized at [facility]. ANICAL ESTIMATOR Impression: Mild acute pancreatitis. Associated small amount of pelvic ascites. Borderline splenomegaly. 2 mm nonobstructing left renal stone. Diffuse hepatic steatosis.
--- OUTSIDE RECORDS SUMMARY | 2024-06-22 19:01 | XMS_ITS | Referral Summary ---
Author Organization [facility] [employer] Address [address] [place] [address] Care Team Providers Care Aerial Gunner Superintendent Name Role Phone Raad Tejada MD Primary Care Provider [phone] Cris Hernández MD Unavailable [phone] Source Comments [facility],non-owned Affiliates and Associated Physician Practices is amultiple site organization consisting of ambulatory clinics and hospital sitesin [place], [place], [place] and [place]. This disclosure is being madepursuant to the Care Everywhere program and may not contain all information available regarding this patient. Last updated 18.[facility] Allergies No known active allergies Medications * Be aware that medications may not be up to date on this document. Alwaysverify current medications with the patient. Medication Sig Dispensed Refills Start Date End Date Status fluticasone propionate (FLONASE) 50 MCG/ACT nasal sprayIndications:Acut e maxillary sinusitis, recurrence not specified [place] 2 Sprays into each nostril once daily 1 Bottle 05/01/2016 Active Acetaminophen (TYLENOL PO) Active KJ-Owibxwfhbftjk-Yjto aminophen (VICKS DAYQUIL COLD & FLU PO) Active Pseudoeph-Doxylamine- DM-APAP (NYQUIL PO) Activ e Loratadine (CLARITIN PO) Active fluticasone propionate (FLONASE) 50 MCG/ACT nasal sprayIndications:Lamont rgic Rhinitis [place] 2 sprays into each nostril once daily Reasons: Allergic Rhinitis 10 g 03/18/2020 Active albuterol HFA (PROVENTIL; VENTOLIN; PROAIR) 108 (90 Base) MCG/ACT inhalerIndications:Ac [place] bronchitis, unspecified organism Inhale 2 (two) puffs by mouth every 6 hours as needed for Wheezing or Cough 1 g 04/13/2021 Active Active Problems No known active problems Social History Tobacco Use Types Packs/Day Years Used Date Smoking Tobacco: Never Smokeless Tobacco: Never Tobacco Cessation:Counseling Given: No Alcohol Use Standard Drinks/Week Comments Yes 0 (1 standard drink = 0.6 oz pur e alcohol) Weekly Sex and Gender Information Value Date Recorded Sex Assigned at Not on file Gender Identity Not on file Sexual Orientation Not on file Last Filed Vital Signs Vital Sign Reading Time Taken Comments Blood Pressure 120/78 04/13/2021 4:29 PM PARTS COORDINATOR Pulse 100 04/13/2021 4:29 PM PARTS COORDINATOR Temperature 36.7 C (98 F) 04/13/2021 4:29 PM PARTS COORDINATOR Respiratory Rate 16 04/13/2021 4:29 PM PARTS COORDINATOR Oxygen Saturation 98% 04/13/2021 4:29 PM PARTS COORDINATOR Inhaled Oxygen Concentration - - Weight 83.5 kg (184 lb) 04/13/2021 4:29 PM PARTS COORDINATOR Height 177.8 cm (5' 10 ) 04/13/2021 4:29 PM PARTS COORDINATOR Body Mass Index 26.4 04/13/2021 4:29 PM PARTS COORDINATOR Plan of Treatment Not on file Care Teams Aerial Gunner Superintendent Relationship Specialty Start Date End Date Raad Tejada MD [address] [place] [address] PCP - General Family Medicine 01/11/17 Cris Hernández MD [address] [place] [address] Pediatrics 01/11/17
--- OUTSIDE RECORDS SUMMARY | 2024-06-22 19:01 | XMS_ITS | Clinical Summary ---
Author Organization [facility] [employer] Address [address] [place] [address] Care Team Providers Care Newspaper Managing Editor Name Role Phone Raad Tejada MD Primary Care Provider [phone] Cris Hernández MD Unavailable [phone] Source Comments [facility],non-owned Affiliates and Associated Physician Practices is amultiple site organization consisting of ambulatory clinics and hospital sitesin [place], [place], [place] and [place]. This disclosure is being madepursuant to the Care Everywhere program and may not contain all information available regarding this patient. Last updated 18.[facility] Allergies No known active allergies Medications * Be aware that medications may not be up to date on this document. Alwaysverify current medications with the patient. Medication Sig Dispensed Refills Start Date End Date Status fluticasone propionate (FLONASE) 50 MCG/ACT nasal sprayIndications:Acut e maxillary sinusitis, recurrence not specified [place] 2 Sprays into each nostril once daily 1 Bottle 05/01/2016 Active Acetaminophen (TYLENOL PO) Active IU-Hgnnyjvtocqgy-Qqic aminophen (VICKS DAYQUIL COLD & FLU PO) Active Pseudoeph-Doxylamine- DM-APAP (NYQUIL PO) Activ e Loratadine (CLARITIN PO) Active fluticasone propionate (FLONASE) 50 MCG/ACT nasal sprayIndications:Lamont rgic Rhinitis [place] 2 sprays into each nostril once daily Reasons: Allergic Rhinitis 10 g 03/18/2020 Active albuterol HFA (PROVENTIL; VENTOLIN; PROAIR) 108 (90 Base) MCG/ACT inhalerIndications:Ac [place] bronchitis, unspecified organism Inhale 2 (two) puffs by mouth every 6 hours as needed for Wheezing or Cough 1 g 04/13/2021 Active Active Problems No known active problems Family History Relation Name Status Comments Father Alive Mother Alive Social History Tobacco Use Types Packs/Day Years [...] Comments Blood Pressure 120/78 04/13/2021 4:29 PM DEPARTMENT OF SOCIOLOGY CHAIR Pulse 100 04/13/2021 4:29 PM DEPARTMENT OF SOCIOLOGY CHAIR Temperature 36.7 C (98 F) 04/13/2021 4:29 PM DEPARTMENT OF SOCIOLOGY CHAIR Respiratory Rate 16 04/13/2021 4:29 PM DEPARTMENT OF SOCIOLOGY CHAIR Oxygen Saturation 98% 04/13/2021 4:29 PM DEPARTMENT OF SOCIOLOGY CHAIR Inhaled Oxygen Concentration - - Weight 83.5 kg (184 lb) 04/13/2021 4:29 PM DEPARTMENT OF SOCIOLOGY CHAIR Height 177.8 cm (5' 10 ) 04/13/2021 4:29 PM DEPARTMENT OF SOCIOLOGY CHAIR Body Mass Index 26.4 04/13/2021 4:29 PM DEPARTMENT OF SOCIOLOGY CHAIR Plan of Treatment Health Maintenance Due Date Last Done Comments HIV SCREENING 12/05/2010 HEPATITIS C SCREENING 12/01/2013 DTAP/TDAP/TD VACCINES (1 - Tdap) 12/05/2014 HEPATITIS B VACCINE (1 of 3 - 19+ 3-dose series) 12/05/2014 COVID-19 VACCINE (2 - 2023-2 5 season) 2024 07/12/2020 INFLUENZA VACCINE (#1) 2024 2, 02/12/2011, 01/31/2010 DEPRESSION SCREENING 05/07/2024 ZOSTER VACCINE (1 of 2) 12/05/2045 HIB VACCINE Aged Out No longer eligi ble based on patient's age to complete this topic HPV VACCINE Aged Out No longer eligi ble based on patient's age to complete this topic MENINGOCOCCAL (Group B) VACCINE Aged Out No longer eligible b ased on patient's age to complete this topic MENINGOCOCCAL VACCINE Aged Out No justino betty eligible based on patient's age to complete this topic PNEUMOCOCCAL VACCINE Aged Out No long er eligible based on patient's age to complete this topic Care Teams Newspaper Managing Editor Relationship Specialty Start Date End Date Raad Tejada MD [facility] [place] [address] PCP - General Family Medicine 01/11/17 Cris Hernández MD [address] [place] [address] Pediatrics 01/11/17
--- OUTSIDE RECORDS SUMMARY | 2024-06-22 19:01 | XMS_ITS | Patient Health Summary ---
Author Organization [facility] Address [address] [place] [address] Care Team Providers Care Affiliate Manager Name Role Phone Raad Tejada MD Primary Care Provider [phone] Cris Hernández MD Unavailable [phone] Note from [facility],non-owned Affiliates and Associated Physician Practices is amultiple site organization consisting of ambulatory clinics and hospital sitesin [place], [place], [place] and [place]. This disclosure is being madepursuant to the Care Everywhere program and may not contain all information available regarding this patient. Last updated 18.[facility] Allergies No known active allergies Medications * Be aware that medications may not be up to date on this document. Alwaysverify current medications with the patient. * fluticasone propionate (FLONASE) 50 MCG/ACT nasal spray(Started 05/01/2016) Nelson 2 Sprays into each nostril once daily * Acetaminophen (TYLENOL PO) * BH-Ksuzfmqboraya-Bhgtzxpsknhtg (VICKS DAYQUIL COLD & FLU PO) * Tlbbhjkcg-Tcihvqrudu-FD-APAP (NYQUIL PO) * Loratadine (CLARITIN PO) * fluticasone propionate (FLONASE) 50 MCG/ACT nasal spray(Started 03/18/2020) [place] 2 sprays into each nostril once daily Reasons: Allergic Rhinitis * albuterol HFA (PROVENTIL; VENTOLIN; PROAIR) 108 (90 Base) MCG/ACT inhaler (Started 04/13/2021) Inhale 2 (two) puffs by mouth every 6 hours as needed for Wheezing or Cough Active Problems No known active problems Social [...] Comments Blood Pressure 120/78 04/13/2021 4:29 PM BATTER SCALER Pulse 100 04/13/2021 4:29 PM BATTER SCALER Temperature 36.7 C (98 F) 04/13/2021 4:29 PM BATTER SCALER Respiratory Rate 16 04/13/2021 4:29 PM BATTER SCALER Oxygen Saturation 98% 04/13/2021 4:29 PM BATTER SCALER Inhaled Oxygen Concentration - - Weight 83.5 kg (184 lb) 04/13/2021 4:29 PM BATTER SCALER Height 177.8 cm (5' 10 ) 04/13/2021 4:29 PM BATTER SCALER Body Mass Index 26.4 04/13/2021 4:29 PM BATTER SCALER Procedures * STREP A SCREEN - POINT OF CARE (AMB) STL(Performed 05/21/2018) Performed for Acute nasopharyngitis (common cold) * STREP A SCREEN - POINT OF CARE (AMB) STL(Performed 01/11/2017) Performed for Strep throat * STREP A SCREEN - POINT OF CARE (AMB) STL(Performed 08/02/2016) Performed for Acute pharyngitis, unspecified etiology * STREP A SCREEN - POINT OF CARE (AMB) STL(Performed 01/31/2016) Performed for Acute URI Results * STREP A SCREEN - POINT OF CARE (AMB) STL (05/21/2018) Only the most recent of4 resultswithin the time period is included. Strep A Rapid POCT Negative Negative Strep A Internal Control Present Lot # [id number] Expiration Date 12/05/2019 Throat ENTIRE THROAT (SURFACE REGION OF NECK) / Unknown 05/21/2018 Rosy Borja ELECTRON[employer] GAMING DEVICE SUPERVISOR-MACHINE STRIPER LAB - POINT OF C ARE ORDERABLES Care Teams Affiliate Manager Relationship Specialty Start Date End Date Raad Tejada MD [address] [place] [address] PCP - General Family Medicine 01/11/17 Cris Hernández MD [address] [place] [address] Pediatrics 01/11/17
[2024-06-22 19:08] VITALS: BP 166/67; PULSE 114; RESP 18; TEMP 36.5; O2SAT 100
[2024-06-22 21:12] LABS: Add Urine Microscopic? YES; Appearance Urine Clear (Clear); Bacteria Urine None Seen /hpf; Bilirubin Urine Negative (Negative); Blood Urine 1+ (Negative); Color Urine Yellow (Yellow); Glucose Urine UA Trace mg/dL (Negative); Ketones Urine 1+ mg/dL (Negative); Leukocyte Esterase Ur Negative LEU/UL (Negative); Need Manual Microscopic Reviewed; Nitrate Urine Negative (Negative); Protein Urine 4+ mg/dL (Negative); RBC Urine 0-2 /hpf (0-2); Specific Grav Ur 1.014 (1.001-1.035); Squamous Epithelial Cell Urine None Seen /hpf (Few); Urobilinogen Urine 0.2 mg/dL (<2.0); WBC Urine 0-5 /hpf (0-3)
--- OUTSIDE RECORDS SUMMARY | 2024-06-22 22:41 | XMS_ITS | Clinical Summary ---
Author Organization [facility] [employer] Address [address] [place] [address] Care Team Providers Care Skoog Operator Name Role Phone Raad Tejada MD Primary Care Provider [phone] Cirs Hernández MD Unavailable [phone] Source Comments [facility],non-owned Affiliates and Associated Physician Practices is amultiple site organization consisting of ambulatory clinics and hospital sitesin [place], [place], [place] and [place]. This disclosure is being madepursuant to the Care Everywhere program and may not contain all information available regarding this patient. Last updated 18.[facility] [employer] Allergies No known active allergies Medications * Be aware that medications may not be up to date on this document. Alwaysverify current medications with the patient. Medication Sig Dispensed Refills Start Date End Date Status fluticasone propionate (FLONASE) 50 MCG/ACT nasal sprayIndications:Acut e maxillary sinusitis, recurrence not specified [place] 2 Sprays into each nostril once daily 1 Bottle 05/01/2016 Active Acetaminophen (TYLENOL PO) Active QO-Ivitygkevtvzw-Kzqd aminophen (VICKS DAYQUIL COLD & FLU PO) Active Pseudoeph-Doxylamine- DM-APAP (NYQUIL PO) Activ e Loratadine (CLARITIN PO) Active fluticasone propionate (FLONASE) 50 MCG/ACT nasal sprayIndications:Lamont rgic Rhinitis [place] 2 sprays into each nostril once daily Reasons: Allergic Rhinitis 10 g 03/18/2020 Active albuterol HFA (PROVENTIL; VENTOLIN; PROAIR) 108 (90 Base) MCG/ACT inhalerIndications:Ac hoh bronchitis, unspecified organism Inhale 2 (two) puffs [...] Comments Blood Pressure 120/78 04/13/2021 4:29 PM SPOT BILLING CLERK Pulse 100 04/13/2021 4:29 PM SPOT BILLING CLERK Temperature 36.7 C (98 F) 04/13/2021 4:29 PM SPOT BILLING CLERK Respiratory Rate 16 04/13/2021 4:29 PM SPOT BILLING CLERK Oxygen Saturation 98% 04/13/2021 4:29 PM SPOT BILLING CLERK Inhaled Oxygen Concentration - - Weight 83.5 kg (184 lb) 04/13/2021 4:29 PM SPOT BILLING CLERK Height 177.8 cm (5' 10 ) 04/13/2021 4:29 PM SPOT BILLING CLERK Body Mass Index 26.4 04/13/2021 4:29 PM SPOT BILLING CLERK Plan of Treatment Health Maintenance Due Date [...] age to complete this topic Care Teams Skoog Operator Relationship Specialty Start Date End Date Raad Tejada MD [facility] [place] [address] PCP - General Family Medicine 01/11/17 Cris Hernández MD [address] [place] [address] Pediatrics 01/11/17
--- OUTSIDE RECORDS SUMMARY | 2024-06-22 22:41 | XMS_ITS | Referral Summary ---
Author Organization [facility] [employer] Address [address] [place] [address] Care Team Providers Care Senior Systems Analyst Name Role Phone Raad Tejada MD Primary Care Provider [phone] Cris Hernández MD Unavailable [phone] Source Comments [facility],non-owned Affiliates and Associated Physician Practices is amultiple site organization consisting of ambulatory clinics and hospital sitesin [place], [place], [place] and [place]. This disclosure is being madepursuant to the Care Everywhere program and may not contain all information available regarding this patient. Last updated 18.[facility] Allergies No known active allergies Medications * Be aware that medications may not be up to date on this document. Alwaysverify current medications with the patient. Medication Sig Dispensed Refills Start Date End Date Status fluticasone propionate (FLONASE) 50 MCG/ACT nasal sprayIndications:Acut e maxillary sinusitis, recurrence not specified [place] 2 Sprays into each nostril once daily 1 Bottle 05/01/2016 Active Acetaminophen (TYLENOL PO) Active UD-Pzurysdeqqaeh-Kxwt aminophen (VICKS DAYQUIL COLD & FLU PO) Active Pseudoeph-Doxylamine- DM-APAP (NYQUIL PO) Activ e Loratadine (CLARITIN PO) Active fluticasone propionate (FLONASE) 50 MCG/ACT nasal sprayIndications:Lamont rgic Rhinitis [place] 2 sprays into each nostril once daily Reasons: Allergic Rhinitis 10 g 03/18/2020 Active albuterol HFA (PROVENTIL; VENTOLIN; PROAIR) 108 (90 Base) MCG/ACT inhalerIndications:Ac [place] bronchitis, unspecified organism Inhale 2 (two) puffs [...] Comments Blood Pressure 120/78 04/13/2021 4:29 PM GENERATING STATION MECHANIC Pulse 100 04/13/2021 4:29 PM GENERATING STATION MECHANIC Temperature 36.7 C (98 F) 04/13/2021 4:29 PM GENERATING STATION MECHANIC Respiratory Rate 16 04/13/2021 4:29 PM GENERATING STATION MECHANIC Oxygen Saturation 98% 04/13/2021 4:29 PM GENERATING STATION MECHANIC Inhaled Oxygen Concentration - - Weight 83.5 kg (184 lb) 04/13/2021 4:29 PM GENERATING STATION MECHANIC Height 177.8 cm (5' 10 ) 04/13/2021 4:29 PM GENERATING STATION MECHANIC Body Mass Index 26.4 04/13/2021 4:29 PM GENERATING STATION MECHANIC Plan of Treatment Not on file Care Teams Senior Systems Analyst Relationship Specialty Start Date End Date Raad Tejada MD [address] [place] [address] PCP - General Family Medicine 01/11/17 Cris Hernández MD [address] [place] [address] Pediatrics 01/11/17
--- OUTSIDE RECORDS SUMMARY | 2024-06-22 22:41 | XMS_ITS | Patient Health Summary ---
Author Organization [facility] Address [address] [place] [address] Care Team Providers Care Jewel Bearing Driller Name Role Phone Raad Tejada MD Primary Care Provider [phone] Cris Hernández MD Unavailable [phone] Note from [facility],non-owned Affiliates and Associated Physician Practices is amultiple site organization consisting of ambulatory clinics and hospital sitesin [place], [place], [place] and [place]. This disclosure is being madepursuant to the Care Everywhere program and may not contain all information available regarding this patient. Last updated 18.[facility] Allergies No known active allergies Medications * Be aware that medications may not be up to date on this document. Alwaysverify current medications with the patient. * fluticasone propionate (FLONASE) 50 MCG/ACT nasal spray(Started 05/01/2016) [place] 2 Sprays into each nostril once daily * Acetaminophen (TYLENOL PO) * DB-Zazttgtqkffsn-Ubywxiwtuwnri (VICKS DAYQUIL COLD & FLU PO) * Vetdpgxtr-Dsijvjbwzr-XK-APAP (NYQUIL PO) * Loratadine (CLARITIN PO) * fluticasone propionate (FLONASE) 50 MCG/ACT nasal spray(Started 03/18/2020) [place] 2 sprays into each nostril once daily [...] Comments Blood Pressure 120/78 04/13/2021 4:29 PM RESISTOR INSPECTOR Pulse 100 04/13/2021 4:29 PM RESISTOR INSPECTOR Temperature 36.7 C (98 F) 04/13/2021 4:29 PM RESISTOR INSPECTOR Respiratory Rate 16 04/13/2021 4:29 PM RESISTOR INSPECTOR Oxygen Saturation 98% 04/13/2021 4:29 PM RESISTOR INSPECTOR Inhaled Oxygen Concentration - - Weight 83.5 kg (184 lb) 04/13/2021 4:29 PM RESISTOR INSPECTOR Height 177.8 cm (5' 10 ) 04/13/2021 4:29 PM RESISTOR INSPECTOR Body Mass Index 26.4 04/13/2021 4:29 PM RESISTOR INSPECTOR Procedures * STREP A SCREEN - POINT [...] Strep A Internal Control Present Lot # [id number] Expiration Date 12/05/2019 Throat ENTIRE THROAT (SURFACE REGION OF NECK) / Unknown 05/21/2018 Rosy Borja [employer] [facility] - POINT OF C ARE ORDERABLES Care Teams Jewel Bearing Driller Relationship Specialty Start Date End Date Raad Tejada MD [address] [place] [address] PCP - General Family Medicine 01/11/17 Cris Hernández MD [address] [place] [address] Pediatrics 01/11/17
[2024-06-22] MEDS: SODIUM CHLORIDE 0.9% IV 1,000 ML 999 ML IV CONT ×2 (23:03→23:04)
[2024-06-22] MEDS: ONDANSETRON INJ 4 MG/2 ML VIAL IV PUSH (23:07)
[2024-06-22] MEDS: HYDROmorphone HCL INJ (*CRX) 1 MG/ML SYR IV PUSH (23:07)
[2024-06-22 23:09] LABS: Basophils Percent Auto 0.2 % (0.2-1.2); Eosinophils Absolute Auto 0.1 K/mm3 (0-0.3); Eosinophils Percent Auto 0.4 % (0-4.4); Hematocrit 49.3 % (42.0-52.0); Hemoglobin 17.4 g/dL (14.0-18.0); Immature Granulocyte Absolute 0.06 K/mm3 (0.00-0.031); Immature Granulocyte Percent A 0.4 % (0-0.5); Lymphocytes Absolute Auto 1.19 K/mm3 (0.9-3.2); Lymphocytes Percent Auto 8.5 % (18.3-44.2); Mean Corpuscular HGB Conc 35.3 g/dl (32-36); Mean Corpuscular Hemoglobin 31.9 pg (26-34); Mean Corpuscular Volume 90.5 fl (80-100); Mean Platelet Volume 9.4 fl (7.4-10.4); Monocytes Absolute Auto 1.4 K/mm3 (0.1-0.6); Neutrophils Absolute Auto 11.3 K/mm3 (1.3-6.7); Neutrophils Percent Auto 80.5 % (45.5-73.1); Platelet Count Result 223 k/mm3 (150-375); Red Blood Count 5.45 M/mm3 (4.6-6.20); Red Cell Distribution Width 12.8 % (11.5-14.5); White Blood Count 14.1 K/mm3 (4.5-10.0)
[2024-06-22 23:16] VITALS: BP 151/112; PULSE 104; RESP 20; O2SAT 95
[2024-06-22 23:20] LABS: Alanine Aminotransferase 39 U/L (6-50); Alkaline Phosphatase 100 U/L (38-126); Anion Gap 17 mmol/L (4-12); Aspartate Amino Transferase 31 U/L (17-59); Bilirubin,Total 1.4 mg/dL (0.2-1.3); Blood Urea Nitrogen 27 mg/dL (9-20); Calcium 9.4 mg/dL (8.4-10.2); Carbon Dioxide 21 mmol/L (22-30); Chloride 104 mmol/L (98-107); Estimated CRCL calculation 44 ml/min; Estimated Glomerular Filt Rate 28; Glucose 125 mg/dL (65-110); Lactic Acid Reflex 1.2 mmol/L (0.7-2.0); Lipase 1682 U/L (23-300); Magnesium 2.3 mg/dL (1.6-2.3); Phosphorus 3.5 mg/dL (2.5-4.5); Potassium 4.2 mmol/L (3.4-5.0); Sodium 142 mmol/L (137-145)
[2024-06-22 23:31] VITALS: BP 160/101; PULSE 98; RESP 18; O2SAT 97
[2024-06-22 23:45] LABS: Influenza A QL RT-PCR Negative (Negative); Influenza B QL RT-PCR Negative (Negative); RSV RNA, RT-PCR Negative (Negative); SARS-CoV-2 RNA PCR Negative (Negative)
[2024-06-22 23:53] VITALS: BP 146/108; PULSE 94; RESP 19; O2SAT 98
[2024-06-23] VITALS (46 sets, daily range): BP systolic 132–166; BP diastolic 92–119; PULSE 72–121; RESP 13–27; TEMP 36.3–37; O2SAT 93–100; BMI 30.4
--- NOTE | 2024-06-23 00:30 | ECG_ITS ---
Test Date: 2024-06-23 00:38:45 Measurements Intervals [place] Rate: 92 P: 66 WI: 137 QRS: 51 QRSD: 92 T: 33 QT: 348 QTc: 431 Interpretive Statements SINUS RHYTHM MINIMAL Q WAVES- INFERIOR LEADS BORDERLINE ECG No previous ECG available for comparison Electronically Signed On 06-23-2024 07:00:57 SAWDUST MACHINE OPERATOR by Joao Kan D.O.
[2024-06-23] MEDS: HYDROmorphone HCL INJ (*CRX) 1 MG/ML SYR IV PUSH ×6 (00:31→20:27)
[2024-06-23] MEDS: PROCHLORPERAZINE EDISYLATE 10 MG/2 ML VIAL IM (00:31)
--- NOTE | 2024-06-23 00:32 | ED.GENADULT ---
HPI - General Adult General Chief complaint: Abdominal Pain Stated complaint: pancreatitis Time Seen by Provider: 06/22/24 22:33 History of Present Illness HPI narrative: This is a 28-year-old male history of pancreatitis presenting for epigastric pain. Patient was in [facility] when he developed significant abdominal pain. Associated with nausea vomiting diarrhea. Patient relates the pain to previous bouts of pancreatitis. He denied drinking any unpurified water or leaving the resort. Related Data Home Medications ?Medication ?Instructions ?Recorded ?Confirmed ?Last Taken ?Type lisinopril 10 mg tablet 10 mg PO DAILY 04/11/23 12/23/23 Unknown History Allergies Allergy/AdvReac Type Severity Reaction Status Date / Time No Known Allergies Allergy Verified 06/22/24 19:11 [facility] Past Medical History Medical History (Updated 06/23/24 @ 02:04 by Artie Grimm MD) Necrotizing pancreatitis Hypertension Previously prescribed metoprolol however he did not notice any difference in his blood pressures. He continues to do ambulatory blood pressure monitoring and reports that it has never been over 140/90. Surgical History Surgical History History of tonsillectomy (2009) Family History Family History Other Family history non-contributory Social History Social History Social History: Surrogate medical decision maker: Lala Galvan, mother. Code status: Full code. Smoking status: Never smoker Alcohol intake: current Drinks per week: 8 Substance use: never Substance use type: does not use Do You Feel Safe in your Home?: Yes Lack of Transportation: No Lack of Food: Never True Current Housing: I Have Housing Concerned About Future Housing: No Difficulty Paying Gas/Electric Bills: No Difficulty Paying for Meds: No Currently Unemployed: No Education: Bachelor's Degree Difficulty w/ Childcare or Family Care: No Spiritual care concerns: No Exam Narrative: APPEARANCE: Patient appears uncomfortable Head: atraumatic. EYES: EOMI, NOSE: Atraumatic NECK: Trachea midline RESPIRATORY: No increased rate of breathing CTAB CARDIOVASCULAR: RRR, ABDOMINAL: Tenderness in the epigastric area voluntary guarding MUSCULOSKELETAl: No obvious deformities NEURO: Alert. Moving 4/4 extremities SKIN:: Warm, dry. Normal color PSYCHIATRIC: Normal affect Course Vital Signs Vital signs: Vital Signs Temperature 97.7 F 06/22/24 19:08 Pulse Rate 114 H 06/22/24 19:08 Respiratory Rate 18 06/22/24 19:08 Blood Pressure 166/67 H 06/22/24 19:08 Pulse Oximetry 100 06/22/24 19:08 Oxygen Delivery Room Air 06/22/24 19:08 Temperature 97.7 F 06/22/24 19:08 Pulse Rate 94 06/23/24 00:31 Respiratory Rate 14 06/23/24 00:31 Blood Pressure 141/103 H 06/23/24 00:31 Pulse Oximetry 93 06/23/24 00:31 Oxygen Delivery Room Air 06/22/24 19:08 Medical Decision Making MDM Narrative Medical decision making narrative: -Course: 28-year-old male with history of pancreatitis presenting with epigastric pain. Lipase elevated at 1600. CT abdomen pelvis as interpreted by stat read showed acute pancreatitis with pancreatic edema and peripancreatic stranding. No evidence of pancreatic necrosis or pseudocyst. White count elevated 14. Patient given 3 L of lactated Ringer's and started on a pip/tazo. Additionally patient has acute kidney injury with creatinine of 2.75. Will be admitted hospital for further management of his pancreatitis. -DDX includes but is not limited to: Pancreatitis, traveler's diarrhea, gastritis, gallbladder disease Vital Signs Vital Signs: Vital Signs Temperature 97.7 F 06/22/24 19:08 Pulse Rate 114 H 06/22/24 19:08 Respiratory Rate 18 06/22/24 19:08 Blood Pressure 166/67 H 06/22/24 19:08 Pulse Oximetry 100 06/22/24 19:08 Oxygen Delivery Room Air 06/22/24 19:08 Temperature 97.7 F 06/22/24 19:08 Pulse Rate 94 06/23/24 00:31 Respiratory Rate 14 06/23/24 00:31 Blood Pressure 141/103 H 06/23/24 00:31 Pulse Oximetry 93 06/23/24 00:31 Oxygen Delivery Room Air 06/22/24 19:08 Lab Data 06/22/24 23:01 06/22/24 23:01 Labs: Lab Results 06/22/24 06/22/24 Range/Units 20:49 23:01 WBC 14.1 H (4.5-10.0) K/mm3 RBC 5.45 (4.6-6.20) M/mm3 Hgb 17.4 D (14.0-18.0) g/dL Hct 49.3 (42.0-52.0) % MCV 90.5 (80-100) fl MCH 31.9 (26-34) pg MCHC 35.3 (32-36) g/dl RDW 12.8 (11.5-14.5) % Plt Count 223 (150-375) k/mm3 MPV 9.4 (7.4-10.4) fl Immature Gran % (Auto) 0.4 (0-0.5) % Neut % (Auto) 80.5 H (45.5-73.1) % Lymph % (Auto) 8.5 L (18.3-44.2) % [place] % (Auto) 10.0 H (2.6-8.5) % Eos % (Auto) 0.4 (0-4.4) % Baso % (Auto) 0.2 (0.2-1.2) % Lymph # (Auto) 1.19 (0.9-3.2) K/mm3 [place] # (Auto) 1.4 H (0.1-0.6) K/mm3 Eos # (Auto) 0.1 (0-0.3) K/mm3 Baso # (Auto) 0.0 (0.0-0.1) K/mm3 Abs Immat Gran (auto) 0.06 H (0.00-0.031) K/mm3 Absolute Neuts (auto) 11.3 H (1.3-6.7) K/mm3 Absolute Nucleated RBC 0.000 (0.0-0.012) K/mm3 Nucleated RBC % 0.0 (0.0-0.2) % Sodium 142 (137-145) mmol/L Potassium 4.2 (3.4-5.0) mmol/L Chloride 104 (98-107) mmol/L Carbon Dioxide 21 L (22-30) mmol/L Anion Gap 17 H (4-12) mmol/L BUN 27 H D (9-20) mg/dL Creatinine 2.75 H (0.7-1.3) mg/dL Estim Creat Clear Calc 44 ml/min Estimated GFR 28 L (59 - ) Glucose 125 H (65-110) mg/dL Lactic Acid 1.2 (0.7-2.0) mmol/L Calcium 9.4 (8.4-10.2) mg/dL Phosphorus 3.5 (2.5-4.5) mg/dL Magnesium 2.3 (1.6-2.3) mg/dL Total Bilirubin 1.4 H (0.2-1.3) mg/dL AST 31 (17-59) U/L ALT 39 (6-50) U/L Alkaline Phosphatase 100 (38-126) U/L Total Protein 9.0 H (6.3-8.2) g/dL Albumin 5.0 (3.5-5.1) g/dL Lipase 1682 H (23-300) U/L Urine Color Yellow (Yellow) Urine Appearance Clear (Clear) Urine pH 7.0 (5.0-9.0) Ur Specific [place] 1.014 (1.001-1.035) Urine Protein 4+ H (Negative) mg/dL Urine Glucose (UA) Trace H (Negative) mg/dL Urine Ketones 1+ H (Negative) mg/dL Ur Blood (Man) 1+ H (Negative) Urine Nitrate Negative (Negative) Urine Bilirubin Negative (Negative) Urine Urobilinogen 0.2 (<2.0) mg/dL Add Ur Microanalysis Reviewed Leukocyte Esterase Rfl Negative (Negative) GEN/UL Urine RBC 0-2 (0-2) /hpf Urine WBC 0-5 (0-3) /hpf Ur Squamous Epith Cells None seen (Few) /hpf Urine Bacteria None seen /hpf Urine Casts 6-10 Influenza A (RT-PCR) Negative (Negative) Influenza B (RT-PCR) Negative (Negative) RSV (RT-PCR) Negative (Negative) SARS-CoV-2 RNA (RT-PCR) Negative (Negative) Critical Care Time Critical Care Time Critical Care Time: Yes Total Critical Care Time: 35 Discharge Plan Discharge Clinical Impression: Pancreatitis, Acute kidney injury Patient Disposition: Still a Patient Condition: Stable Patient Language: Cymro Prescriptions: No Action lisinopril 10 mg tablet 10 mg PO DAILY hydrocodone-acetaminophen 5-325 mg Tablet 1 tablet PO Q4H PRN (Reason: Pain Rated 4-6) Qty: 20 0RF Follow-up/Referrals: Mallory,Raad Rome MD [Primary Care Provider] -
[2024-06-23] MEDS: SODIUM CHLORIDE 0.9% IV 1,000 ML 999 ML IV CONT (01:53)
[2024-06-23] MEDS: PIPERACILLN/TAZ 3.375GM/NS50ML 3.375 GM/50 ML BAG IVPB ×5 (02:09→23:20)
[2024-06-23] MEDS: ONDANSETRON INJ 4 MG/2 ML VIAL IV PUSH ×3 (03:39→23:20)
[2024-06-23] MEDS: LACTATED RINGERS 1,000 ML 200 ML IV CONT ×2 (03:40→08:15)
--- NOTE | 2024-06-23 10:25 | ADMGEN ---
This patient, Eligio Galvan, was admitted to [facility] Surg Room 328-01. Patient/family oriented to hospital policies and general routines including ID bracelet, bed and alarms, visiting hours, pain management, procedures, bathroom and other care routines, personal items, smoking policy, room service/diet, and visiting hours. Information on how to activate the Rapid Response Team has been discussed. Patient/Family are encouraged to report perceived risks to care and to ask questions if they do not understand what they are told or what they should do.
[2024-06-23] MEDS: lisinopriL 10 MG TABLET PO (10:35)
[2024-06-23 10:38] LABS: Basophils Percent Auto 0.1 % (0.2-1.2); Eosinophils Absolute Auto 0.1 K/mm3 (0-0.3); Eosinophils Percent Auto 1.2 % (0-4.4); Hematocrit 42.5 % (42.0-52.0); Hemoglobin 14.3 g/dL (14.0-18.0); Immature Granulocyte Absolute 0.05 K/mm3 (0.00-0.031); Immature Granulocyte Percent A 0.6 % (0-0.5); Lymphocytes Absolute Auto 0.99 K/mm3 (0.9-3.2); Lymphocytes Percent Auto 11.6 % (18.3-44.2); Mean Corpuscular HGB Conc 33.6 g/dl (32-36); Mean Corpuscular Hemoglobin 31.9 pg (26-34); Mean Corpuscular Volume 94.9 fl (80-100); Mean Platelet Volume 9.4 fl (7.4-10.4); Monocytes Absolute Auto 0.8 K/mm3 (0.1-0.6); Monocytes Percent Auto 9.2 % (2.6-8.5); Neutrophils Absolute Auto 6.6 K/mm3 (1.3-6.7); Neutrophils Percent Auto 77.3 % (45.5-73.1); Platelet Count Result 141 k/mm3 (150-375); Red Blood Count 4.48 M/mm3 (4.6-6.20); Red Cell Distribution Width 12.9 % (11.5-14.5); White Blood Count 8.5 K/mm3 (4.5-10.0)
--- NOTE | 2024-06-23 10:40 | PM.IMHP ---
H&P: HPI History of Present Illness Date/Time: 06/23/24 10:40 Chief Complaint: abdominal pain and nausea. Narrative: Patient is a 28 year old male Review of Systems Review of Systems: All systems reviewed & are unremarkable except as noted in HPI and below PMFSH Past Medical History Medical History (Updated 06/23/24 @ 02:04 by Artie Grimm MD) Necrotizing pancreatitis Hypertension Previously prescribed metoprolol however he did not notice any difference in his blood pressures. He continues to do ambulatory blood pressure monitoring and reports that it has never been over 140/90. Surgical History Surgical History History of tonsillectomy (2009) Family History Family History Other Family history non-contributory Social History Social History Social History: Surrogate medical decision maker: Lala Galvan, mother. Code status: Full code. Smoking status: Never smoker Alcohol intake: current Drinks per week: 8 Substance use: never Substance use type: does not use Do You Feel Safe in your Home?: Yes Lack of Transportation: No Lack of Food: Never True Current Housing: I Have Housing Concerned About Future Housing: No Difficulty Paying Gas/Electric Bills: No Difficulty Paying for Meds: No Currently Unemployed: No Education: Bachelor's Degree Difficulty w/ Childcare or Family Care: No Spiritual care concerns: No Meds Home Medications and Allergies Home Medications ?Medication ?Instructions ?Recorded ?Confirmed ?Type lisinopril 10 mg tablet 10 mg PO DAILY 04/11/23 12/23/23 History hydrocodone 5 mg-acetaminophen 325 1 tablet PO Q4H PRN Pain Rated 4-6 12/26/23 Rx mg tablet #20 tabs Allergies Allergy/AdvReac Type Severity Reaction Status Date / Time No Known Allergies Allergy Verified 06/22/24 19:11 Vital Signs Vital Signs - 24 hr 06/22/24 19:08 06/22/24 23:16 06/22/24 23:31 Temperature 97.7 F Pulse Rate 114 H 104 H 98 Respiratory Rate 18 20 18 Blood Pressure 166/67 H 151/112 H 160/101 H Pulse Oximetry 100 95 97 Oxygen Delivery Room Air 06/22/24 23:53 06/23/24 00:01 06/23/24 00:16 Temperature Pulse Rate 94 99 103 H Respiratory Rate 19 23 H 19 Blood Pressure 146/108 H 156/114 H 159/119 H Pulse Oximetry 98 96 96 Oxygen Delivery 06/23/24 00:31 06/23/24 00:46 06/23/24 01:01 Temperature Pulse Rate 94 108 H 105 H Respiratory Rate 14 20 22 H Blood Pressure 141/103 H 145/110 H 139/107 H Pulse Oximetry 93 96 96 Oxygen Delivery 06/23/24 01:16 06/23/24 01:31 06/23/24 01:46 Temperature Pulse Rate 98 97 99 Respiratory Rate 16 19 18 Blood Pressure 141/104 H 137/106 H 139/106 H Pulse Oximetry 97 95 97 Oxygen Delivery 06/23/24 02:01 06/23/24 02:16 06/23/24 02:34 Temperature Pulse Rate 121 H 91 101 H Respiratory Rate 20 16 27 H Blood Pressure 149/116 H 149/119 H 156/117 H Pulse Oximetry 97 98 98 Oxygen Delivery 06/23/24 02:46 06/23/24 03:01 06/23/24 03:16 Temperature Pulse Rate 94 91 91 Respiratory Rate 23 H 16 17 Blood Pressure 149/114 H 148/98 H 166/118 H Pulse Oximetry 97 96 98 Oxygen Delivery 06/23/24 03:31 06/23/24 03:46 06/23/24 04:01 Temperature Pulse Rate 94 97 98 Respiratory Rate 19 21 H 23 H Blood Pressure 152/115 H 148/101 H 148/101 H Pulse Oximetry 95 93 94 Oxygen Delivery 06/23/24 04:31 06/23/24 05:01 06/23/24 05:31 Temperature Pulse Rate 98 108 H 99 Respiratory Rate 18 21 H 16 Blood Pressure 140/100 H 141/106 H 142/98 H Pulse Oximetry 95 95 96 Oxygen Delivery 06/23/24 06:00 06/23/24 06:01 06/23/24 06:15 Temperature Pulse Rate 92 100 90 Respiratory Rate 19 13 18 Blood Pressure 139/107 H Pulse Oximetry 96 96 96 Oxygen Delivery 06/23/24 06:30 06/23/24 06:31 06/23/24 06:45 Temperature Pulse Rate 86 99 86 Respiratory Rate 25 H 24 H 21 H Blood Pressure 146/108 H Pulse Oximetry 97 96 96 Oxygen Delivery 06/23/24 07:00 06/23/24 07:01 06/23/24 07:15 Temperature Pulse Rate 93 95 92 Respiratory Rate 20 20 19 Blood Pressure 140/101 H Pulse Oximetry 95 95 96 Oxygen Delivery 06/23/24 07:30 06/23/24 07:31 06/23/24 07:45 Temperature Pulse Rate 91 92 96 Respiratory Rate 19 19 17 Blood Pressure 132/107 H Pulse Oximetry 96 97 Oxygen Delivery 06/23/24 08:00 06/23/24 08:01 06/23/24 08:15 Temperature Pulse Rate 91 87 85 Respiratory Rate 19 20 18 Blood Pressure 140/105 H Pulse Oximetry 97 96 Oxygen Delivery 06/23/24 08:31 06/23/24 08:32 06/23/24 08:45 Temperature Pulse Rate 90 92 90 Respiratory Rate 21 H 18 16 Blood Pressure 133/97 H Pulse Oximetry 95 96 95 Oxygen Delivery 06/23/24 09:00 06/23/24 09:01 06/23/24 09:15 Temperature Pulse Rate 101 H 94 88 Respiratory Rate 17 18 21 H Blood Pressure 139/106 H Pulse Oximetry 97 98 Oxygen Delivery 06/23/24 09:30 06/23/24 09:31 06/23/24 10:34 Temperature 98.6 F Pulse Rate 72 84 83 Respiratory Rate 21 H 21 H 18 Blood Pressure 137/101 H 155/103 H Pulse Oximetry 98 94 99 Oxygen Delivery H&P: Results Labs Labs: Short CBC 06/22/24 Range/Units 23:01 WBC 14.1 H (4.5-10.0) K/mm3 Hgb 17.4 D (14.0-18.0) g/dL Hct 49.3 (42.0-52.0) % Plt Count 223 (150-375) k/mm3 BMP 06/22/24 23:01 Sodium 142 Potassium 4.2 Chloride 104 Carbon Dioxide 21 L BUN 27 H D Creatinine 2.75 H Glucose 125 H Calcium 9.4 Liver Function 06/22/24 Range/Units 23:01 Total Bilirubin 1.4 H (0.2-1.3) mg/dL AST 31 (17-59) U/L ALT 39 (6-50) U/L Alkaline Phosphatase 100 (38-126) U/L Albumin 5.0 (3.5-5.1) g/dL Urine 06/22/24 Range/Units 20:49 Urine Color Yellow (Yellow) Urine Appearance Clear (Clear) Urine pH 7.0 (5.0-9.0) Ur Specific [place] 1.014 (1.001-1.035) Urine Protein 4+ H (Negative) mg/dL Urine Glucose (UA) Trace H (Negative) mg/dL
[2024-06-23 10:53] LABS: Alanine Aminotransferase 28 U/L (6-50); Albumin Level 3.8 g/dL (3.5-5.1); Alkaline Phosphatase 69 U/L (38-126); Anion Gap 10 mmol/L (4-12); Aspartate Amino Transferase 26 U/L (17-59); Bilirubin,Total 1.3 mg/dL (0.2-1.3); Blood Urea Nitrogen 33 mg/dL (9-20); Calcium 8.1 mg/dL (8.4-10.2); Carbon Dioxide 25 mmol/L (22-30); Chloride 110 mmol/L (98-107); Estimated CRCL calculation 37 ml/min; Estimated Glomerular Filt Rate 22; Glucose 116 mg/dL (65-110); Potassium 4.1 mmol/L (3.4-5.0); Sodium 145 mmol/L (137-145)
[2024-06-23 10:57] LABS: Cholesterol 145 mg/dL (0-200); HDL Direct 49 mg/dL; Triglycerides 209 mg/dL (<150)
[2024-06-23 10:58] LABS: Lipase 1577 U/L (23-300)
[2024-06-23 11:08] LABS: LDL Cholesterol Direct 55 mg/dL
[2024-06-23] MEDS: SODIUM CHLORIDE 0.9% IV 1,000 ML 150 ML IV CONT ×2 (12:08→20:59)
--- OUTSIDE RECORDS SUMMARY | 2024-06-23 12:17 | XMS_ITS | Clinical Summary ---
Author Organization [facility] General Assembly Address [address] [place] [address] Care Team Providers Care Seam Stay Stitcher Name Role Phone Raad Tejada MD Primary Care Provider [phone] Cris Hernández MD Unavailable [phone] Source Comments [facility],non-owned Affiliates and Associated Physician Practices is amultiple site organization consisting of ambulatory clinics and hospital sitesin [place], [place], [place] and [place]. This disclosure is being madepursuant to the Care Everywhere program and may not contain all information available regarding this patient. Last updated 18.[facility] Allergies No known active allergies Medications * Be aware that medications may not be up to date on this document. Alwaysverify current medications with the patient. Medication Sig Dispensed Refills Start Date End Date Status fluticasone propionate (FLONASE) 50 MCG/ACT nasal sprayIndications:Acut e maxillary sinusitis, recurrence not specified [place] 2 Sprays into each nostril once daily 1 Bottle 05/01/2016 Active Acetaminophen (TYLENOL PO) Active RT-Ulzqmbgwzjwug-Pixf aminophen (VICKS DAYQUIL COLD & FLU PO) Active Pseudoeph-Doxylamine- DM-APAP (NYQUIL PO) Activ e Loratadine (CLARITIN PO) Active fluticasone propionate (FLONASE) 50 MCG/ACT nasal sprayIndications:Lamont rgic Rhinitis [place] 2 sprays into each nostril once daily Reasons: Allergic Rhinitis 10 g 03/18/2020 Active albuterol HFA (PROVENTIL; VENTOLIN; PROAIR) 108 (90 Base) MCG/ACT inhalerIndications:Ac [place] bronchitis, unspecified organism Inhale 2 (two) puffs [...] Comments Blood Pressure 120/78 04/13/2021 4:29 PM DOUBLE END SEWER Pulse 100 04/13/2021 4:29 PM DOUBLE END SEWER Temperature 36.7 C (98 F) 04/13/2021 4:29 PM DOUBLE END SEWER Respiratory Rate 16 04/13/2021 4:29 PM DOUBLE END SEWER Oxygen Saturation 98% 04/13/2021 4:29 PM DOUBLE END SEWER Inhaled Oxygen Concentration - - Weight 83.5 kg (184 lb) 04/13/2021 4:29 PM DOUBLE END SEWER Height 177.8 cm (5' 10 ) 04/13/2021 4:29 PM DOUBLE END SEWER Body Mass Index 26.4 04/13/2021 4:29 PM DOUBLE END SEWER Plan of Treatment Health Maintenance Due Date [...] age to complete this topic Care Teams Seam Stay Stitcher Relationship Specialty Start Date End Date Raad Tejada MD [facility] [place] [address] PCP - General Family Medicine 01/11/17 Cris Hernández MD [address] [place] [address] Pediatrics 01/11/17
--- OUTSIDE RECORDS SUMMARY | 2024-06-23 12:17 | XMS_ITS | Patient Health Summary ---
Author Organization [facility] Address [address] [place] [address] Care Team Providers Care Compound Machine Operator Name Role Phone Raad Tejada MD Primary Care Provider [phone] Cris eHrnández MD Unavailable [phone] Note from [facility],non-owned Affiliates and Associated Physician Practices is amultiple site organization consisting of ambulatory clinics and hospital sitesin [place], [place], [place] and [place]. This disclosure is being madepursuant to the Care Everywhere program and may not contain all information available regarding this patient. Last updated 18.[facility] Allergies No known active allergies Medications * Be aware that medications may not be up to date on this document. Alwaysverify current medications with the patient. * fluticasone propionate (FLONASE) 50 MCG/ACT nasal spray(Started 05/01/2016) [place] 2 Sprays into each nostril once daily * Acetaminophen (TYLENOL PO) * FA-Lpjgpyzgmdocb-Jahuvpkkzbscd (VICKS DAYQUIL COLD & FLU PO) * Ufzzawefl-Turzvpcmbf-HQ-APAP (NYQUIL PO) * Loratadine (CLARITIN PO) * fluticasone propionate (FLONASE) 50 MCG/ACT nasal spray(Started 03/18/2020) [place] 2 sprays into each nostril once daily [...] Comments Blood Pressure 120/78 04/13/2021 4:29 PM PENCIL SORTER Pulse 100 04/13/2021 4:29 PM PENCIL SORTER Temperature 36.7 C (98 F) 04/13/2021 4:29 PM PENCIL SORTER Respiratory Rate 16 04/13/2021 4:29 PM PENCIL SORTER Oxygen Saturation 98% 04/13/2021 4:29 PM PENCIL SORTER Inhaled Oxygen Concentration - - Weight 83.5 kg (184 lb) 04/13/2021 4:29 PM PENCIL SORTER Height 177.8 cm (5' 10 ) 04/13/2021 4:29 PM PENCIL SORTER Body Mass Index 26.4 04/13/2021 4:29 PM PENCIL SORTER Procedures * STREP A SCREEN - POINT [...] Strep A Internal Control Present Lot # [id number] Expiration Date 12/05/2019 Throat ENTIRE THROAT (SURFACE REGION OF NECK) / Unknown 05/21/2018 Rosy Borja MINE PROMOTOR-EXTENSION SERVICE SUPERVISOR LAB - POINT OF C ARE ORDERABLES Care Teams Compound Machine Operator Relationship Specialty Start Date End Date Raad Tejada MD [address] [place] [address] PCP - General Family Medicine 01/11/17 Cris Hernández MD [address] [place] [address] Pediatrics 01/11/17
--- OUTSIDE RECORDS SUMMARY | 2024-06-23 12:17 | XMS_ITS | Referral Summary ---
Author Organization [facility] [employer] Address [address] [place] [address] Care Team Providers Care Events Intern Name Role Phone Raad Tejada MD Primary Care Provider [phone] Cris Hernández MD Unavailable [phone] Source Comments [facility],non-owned Affiliates and Associated Physician Practices is amultiple site organization consisting of ambulatory clinics and hospital sitesin [place], [place], [place] and [place]. This disclosure is being madepursuant to the Care Everywhere program and may not contain all information available regarding this patient. Last updated 18.[facility] Allergies No known active allergies Medications * Be aware that medications may not be up to date on this document. Alwaysverify current medications with the patient. Medication Sig Dispensed Refills Start Date End Date Status fluticasone propionate (FLONASE) 50 MCG/ACT nasal sprayIndications:Acut e maxillary sinusitis, recurrence not specified [place] 2 Sprays into each nostril once daily 1 Bottle 05/01/2016 Active Acetaminophen (TYLENOL PO) Active FW-Seojedqidvqxi-Vxak aminophen (VICKS DAYQUIL COLD & FLU PO) Active Pseudoeph-Doxylamine- DM-APAP (NYQUIL PO) Activ e Loratadine (CLARITIN PO) Active fluticasone propionate (FLONASE) 50 MCG/ACT nasal sprayIndications:Lamont rgic Rhinitis [place] 2 sprays into each nostril once daily Reasons: Allergic Rhinitis 10 g 03/18/2020 Active albuterol HFA (PROVENTIL; VENTOLIN; PROAIR) 108 (90 Base) MCG/ACT inhalerIndications:Ac [place] bronchitis, unspecified organism Inhale 2 (two) puffs [...] Comments Blood Pressure 120/78 04/13/2021 4:29 PM STAB SETTER AND DRILLER Pulse 100 04/13/2021 4:29 PM STAB SETTER AND DRILLER Temperature 36.7 C (98 F) 04/13/2021 4:29 PM STAB SETTER AND DRILLER Respiratory Rate 16 04/13/2021 4:29 PM STAB SETTER AND DRILLER Oxygen Saturation 98% 04/13/2021 4:29 PM STAB SETTER AND DRILLER Inhaled Oxygen Concentration - - Weight 83.5 kg (184 lb) 04/13/2021 4:29 PM STAB SETTER AND DRILLER Height 177.8 cm (5' 10 ) 04/13/2021 4:29 PM STAB SETTER AND DRILLER Body Mass Index 26.4 04/13/2021 4:29 PM STAB SETTER AND DRILLER Plan of Treatment Not on file Care Teams Events Intern Relationship Specialty Start Date End Date Raad Tejada MD [address] [place] [address] PCP - General Family Medicine 01/11/17 Cris Hernández MD [address] [place] [address] Pediatrics 01/11/17
--- NOTE | 2024-06-23 12:26 | PM.IMHP ---
H&P: HPI History of Present Illness Date/Time: 06/23/24 12:26 Chief Complaint: Abdominal pain and nausea. Review of Systems Review of Systems: All systems reviewed & are unremarkable except as noted in HPI and below [facility] Past Medical History Medical History (Updated 06/23/24 @ 02:04 by Artie Grimm MD) Necrotizing pancreatitis Hypertension Previously prescribed metoprolol however he did not notice any difference in his blood pressures. He continues to do ambulatory blood pressure monitoring and reports that it has never been over 140/90. Surgical History Surgical History History of tonsillectomy (2009) Family History Family History Other Family history non-contributory Social History Social History Social History: Surrogate medical decision maker: Lala Galvan, mother. Code status: Full code. Smoking status: Never smoker Alcohol intake: current Drinks per week: 8 Substance use: never Substance use type: does not use Do You Feel Safe in your Home?: Yes Lack of Transportation: No Lack of Food: Never True Current Housing: I Have Housing Concerned About Future Housing: No Difficulty Paying Gas/Electric Bills: No Difficulty Paying for Meds: No Currently Unemployed: No Education: Bachelor's Degree Difficulty w/ Childcare or Family Care: No Spiritual care concerns: No Meds Home Medications and Allergies Home Medications ?Medication ?Instructions ?Recorded ?Confirmed ?Type lisinopril 10 mg tablet 10 mg PO DAILY 04/11/23 06/23/24 History hydrocodone 5 mg-acetaminophen 325 1 tablet PO Q4H PRN Pain Rated 4-6 12/26/23 06/23/24 Rx mg tablet #20 tabs Allergies Allergy/AdvReac Type Severity Reaction Status Date / Time No Known Allergies Allergy Verified 06/22/24 19:11 Vital Signs Vital Signs - 24 hr 06/22/24 19:08 06/22/24 23:16 06/22/24 23:31 Temperature 97.7 F Pulse Rate 114 H 104 H 98 Respiratory Rate 18 20 18 Blood Pressure 166/67 H 151/112 H 160/101 H Pulse Oximetry 100 95 97 Oxygen Delivery Room Air 02/16/25 23:53 06/23/24 00:01 06/23/24 00:16 Temperature Pulse Rate 94 99 103 H Respiratory Rate 19 23 H 19 Blood Pressure 146/108 H 156/114 H 159/119 H Pulse Oximetry 98 96 96 Oxygen Delivery 06/23/24 00:31 06/23/24 00:46 06/23/24 01:01 Temperature Pulse Rate 94 108 H 105 H Respiratory Rate 14 20 22 H Blood Pressure 141/103 H 145/110 H 139/107 H Pulse Oximetry 93 96 96 Oxygen Delivery 06/23/24 01:16 06/23/24 01:31 06/23/24 01:46 Temperature Pulse Rate 98 97 99 Respiratory Rate 16 19 18 Blood Pressure 141/104 H 137/106 H 139/106 H Pulse Oximetry 97 95 97 Oxygen Delivery 06/23/24 02:01 06/23/24 02:16 06/23/24 02:34 Temperature Pulse Rate 121 H 91 101 H Respiratory Rate 20 16 27 H Blood Pressure 149/116 H 149/119 H 156/117 H Pulse Oximetry 97 98 98 Oxygen Delivery 06/23/24 02:46 06/23/24 03:01 06/23/24 03:16 Temperature Pulse Rate 94 91 91 Respiratory Rate 23 H 16 17 Blood Pressure 149/114 H 148/98 H 166/118 H Pulse Oximetry 97 96 98 Oxygen Delivery 06/23/24 03:31 06/23/24 03:46 06/23/24 04:01 Temperature Pulse Rate 94 97 98 Respiratory Rate 19 21 H 23 H Blood Pressure 152/115 H 148/101 H 148/101 H Pulse Oximetry 95 93 94 Oxygen Delivery 06/23/24 04:31 06/23/24 05:01 06/23/24 05:31 Temperature Pulse Rate 98 108 H 99 Respiratory Rate 18 21 H 16 Blood Pressure 140/100 H 141/106 H 142/98 H Pulse Oximetry 95 95 96 Oxygen Delivery 06/23/24 06:00 06/23/24 06:01 06/23/24 06:15 Temperature Pulse Rate 92 100 90 Respiratory Rate 19 13 18 Blood Pressure 139/107 H Pulse Oximetry 96 96 96 Oxygen Delivery 06/23/24 06:30 06/23/24 06:31 06/23/24 06:45 Temperature Pulse Rate 86 99 86 Respiratory Rate 25 H 24 H 21 H Blood Pressure 146/108 H Pulse Oximetry 97 96 96 Oxygen Delivery 06/23/24 07:00 06/23/24 07:01 06/23/24 07:15 Temperature Pulse Rate 93 95 92 Respiratory Rate 20 20 19 Blood Pressure 140/101 H Pulse Oximetry 95 95 96 Oxygen Delivery 06/23/24 07:30 06/23/24 07:31 06/23/24 07:45 Temperature Pulse Rate 91 92 96 Respiratory Rate 19 19 17 Blood Pressure 132/107 H Pulse Oximetry 96 97 Oxygen Delivery 06/23/24 08:00 06/23/24 08:01 06/23/24 08:15 Temperature Pulse Rate 91 87 85 Respiratory Rate 19 20 18 Blood Pressure 140/105 H Pulse Oximetry 97 96 Oxygen Delivery 06/23/24 08:31 06/23/24 08:32 06/23/24 08:45 Temperature Pulse Rate 90 92 90 Respiratory Rate 21 H 18 16 Blood Pressure 133/97 H Pulse Oximetry 95 96 95 Oxygen Delivery 06/23/24 09:00 06/23/24 09:01 06/23/24 09:15 Temperature Pulse Rate 101 H 94 88 Respiratory Rate 17 18 21 H Blood Pressure 139/106 H Pulse Oximetry 97 98 Oxygen Delivery 06/23/24 09:30 06/23/24 09:31 06/23/24 10:34 Temperature 98.6 F Pulse Rate 72 84 83 Respiratory Rate 21 H 21 H 18 Blood Pressure 137/101 H 155/103 H Pulse Oximetry 98 94 99 Oxygen Delivery 06/23/24 10:35 Temperature Pulse Rate Respiratory Rate Blood Pressure Pulse Oximetry Oxygen Delivery Room Air H&P: Results Labs Labs: Short CBC 06/22/24 06/23/24 Range/Units 23:01 10:25 WBC 14.1 H 8.5 (4.5-10.0) K/mm3 Hgb 17.4 D 14.3 D (14.0-18.0) g/dL Hct 49.3 42.5 (42.0-52.0) % Plt Count 223 141 L (150-375) k/mm3 BMP 06/22/24 06/23/24 23:01 10:25 Sodium 142 145 Potassium 4.2 4.1 Chloride 104 110 H Carbon Dioxide 21 L 25 BUN 27 H D 33 H Creatinine 2.75 H 3.32 H Glucose 125 H 116 H Calcium 9.4 8.1 L Liver Function 06/22/24 06/23/24 Range/Units 23:01 10:25 Total Bilirubin 1.4 H 1.3 (0.2-1.3) mg/dL AST 31 26 (17-59) U/L ALT 39 28 (6-50) U/L Alkaline Phosphatase 100 69 (38-126) U/L Albumin 5.0 3.8 (3.5-5.1) g/dL Urine 06/22/24 Range/Units 20:49 Urine Color Yellow (Yellow) Urine Appearance Clear (Clear) Urine pH 7.0 (5.0-9.0) Ur Specific [place] 1.014 (1.001-1.035) Urine Protein 4+ H (Negative) mg/dL Urine Glucose (UA) Trace H (Negative) mg/dL
--- NOTE | 2024-06-23 12:31 | P.HP_ITS ---
H&P: HPI History of Present Illness Date/Time: 06/23/24 12:31 Chief Complaint: Abdominal pain and nausea. Narrative: Patient is a 28 year old male that came to the hospital with abdominal pain and nausea. Patient reports that he had diarrhea that ended on Sunday and the last time he vomited was yesterday. Patient denies chest pain, palpitations, headache, dizziness, or vomiting at present. Patient reports that he started feeling bad while in [place] after he had drank 5 [place] [employer] drinks and ate supper. Patient later developed abdominal pain. Patient reports pain in abdomen and lower back that is a 6 , constant, and sharp. Patient reports that he has not been taking blood pressure medication because he ran out of it. Patient reports that he normally only drinks socially and that he does not smoke. ER: WBC 14.1, Creatinine 2.75, Lipase 1682, urine 4+ protein, trace glucose, 1+ ketones, 1+ blood. Respiratory panel negative. ECG SR 92 QTc 431. Chest x-ray showed clear lungs. Abdominal pelvis CT: Impression: Mild acute pancreatitis. Associated small amount of pelvic ascites. Borderline splenomegaly. 2 mm nonobstructing left renal stone. Diffuse hepatic steatosis. Review of Systems Review of Systems: All systems reviewed & are unremarkable except as noted in HPI and below PMFSH Past Medical History Medical History (Updated 06/23/24 @ 02:04 by Artie Grimm MD) Necrotizing pancreatitis Hypertension Previously prescribed metoprolol however he did not notice any difference in his blood pressures. He continues to do ambulatory blood pressure monitoring and reports that it has never been over 140/90. Surgical History Surgical History History of tonsillectomy (2009) Family History Family History Other Family history non-contributory Social History Social History Social History: Surrogate medical decision maker: Lala Galvan, mother. Code status: Full code. Smoking status: Never smoker Alcohol intake: never Drinks per week: 8 Substance use: never Substance use type: does not use Do You Feel Safe in your Home?: Yes Lack of Transportation: No Lack of Food: Never True Current Housing: I Have Housing Concerned About Future Housing: No Difficulty Paying Gas/Electric Bills: No Difficulty Paying for Meds: No Currently Unemployed: No Education: Bachelor's Degree Difficulty w/ Childcare or Family Care: No Spiritual care concerns: No Meds Home Medications and Allergies Home Medications ?Medication ?Instructions ?Recorded ?Confirmed ?Type lisinopril 10 mg tablet 10 mg PO DAILY 04/11/23 06/23/24 History hydrocodone 5 mg-acetaminophen 325 1 tablet PO Q4H PRN Pain Rated 4-6 12/26/23 06/23/24 Rx mg tablet #20 tabs Allergies Allergy/AdvReac Type Severity Reaction Status Date / Time No Known Allergies Allergy Verified 06/22/24 19:11 Vital Signs Vital Signs - 24 hr 06/22/24 19:08 06/22/24 23:16 06/22/24 23:31 Temperature 97.7 F Pulse Rate 114 H 104 H 98 Respiratory Rate 18 20 18 Blood Pressure 166/67 H 151/112 H 160/101 H Pulse Oximetry 100 95 97 Oxygen Delivery Room Air 06/22/24 23:53 06/23/24 00:01 06/23/24 00:16 Temperature Pulse Rate 94 99 103 H Respiratory Rate 19 23 H 19 Blood Pressure 146/108 H 156/114 H 159/119 H Pulse Oximetry 98 96 96 Oxygen Delivery 06/23/24 00:31 06/23/24 00:46 06/23/24 01:01 Temperature Pulse Rate 94 108 H 105 H Respiratory Rate 14 20 22 H Blood Pressure 141/103 H 145/110 H 139/107 H Pulse Oximetry 93 96 96 Oxygen Delivery 06/23/24 01:16 06/23/24 01:31 06/23/24 01:46 Temperature Pulse Rate 98 97 99 Respiratory Rate 16 19 18 Blood Pressure 141/104 H 137/106 H 139/106 H Pulse Oximetry 97 95 97 Oxygen Delivery 06/23/24 02:01 06/23/24 02:16 06/23/24 02:34 Temperature Pulse Rate 121 H 91 101 H Respiratory Rate 20 16 27 H Blood Pressure 149/116 H 149/119 H 156/117 H Pulse Oximetry 97 98 98 Oxygen Delivery 06/23/24 02:46 06/23/24 03:01 06/23/24 03:16 Temperature Pulse Rate 94 91 91 Respiratory Rate 23 H 16 17 Blood Pressure 149/114 H 148/98 H 166/118 H Pulse Oximetry 97 96 98 Oxygen Delivery 06/23/24 03:31 06/23/24 03:46 06/23/24 04:01 Temperature Pulse Rate 94 97 98 Respiratory Rate 19 21 H 23 H Blood Pressure 152/115 H 148/101 H 148/101 H Pulse Oximetry 95 93 94 Oxygen Delivery 06/23/24 04:31 06/23/24 05:01 06/23/24 05:31 Temperature Pulse Rate 98 108 H 99 Respiratory Rate 18 21 H 16 Blood Pressure 140/100 H 141/106 H 142/98 H Pulse Oximetry 95 95 96 Oxygen Delivery 06/23/24 06:00 06/23/24 06:01 06/23/24 06:15 Temperature Pulse Rate 92 100 90 Respiratory Rate 19 13 18 Blood Pressure 139/107 H Pulse Oximetry 96 96 96 Oxygen Delivery 06/23/24 06:30 06/23/24 06:31 06/23/24 06:45 Temperature Pulse Rate 86 99 86 Respiratory Rate 25 H 24 H 21 H Blood Pressure 146/108 H Pulse Oximetry 97 96 96 Oxygen Delivery 06/23/24 07:00 06/23/24 07:01 06/23/24 07:15 Temperature Pulse Rate 93 95 92 Respiratory Rate 20 20 19 Blood Pressure 140/101 H Pulse Oximetry 95 95 96 Oxygen Delivery 06/23/24 07:30 06/23/24 07:31 06/23/24 07:45 Temperature Pulse Rate 91 92 96 Respiratory Rate 19 19 17 Blood Pressure 132/107 H Pulse Oximetry 96 97 Oxygen Delivery 06/23/24 08:00 06/23/24 08:01 06/23/24 08:15 Temperature Pulse Rate 91 87 85 Respiratory Rate 19 20 18 Blood Pressure 140/105 H Pulse Oximetry 97 96 Oxygen Delivery 06/23/24 08:31 06/23/24 08:32 06/23/24 08:45 Temperature Pulse Rate 90 92 90 Respiratory Rate 21 H 18 16 Blood Pressure 133/97 H Pulse Oximetry 95 96 95 Oxygen Delivery 06/23/24 09:00 06/23/24 09:01 06/23/24 09:15 Temperature Pulse Rate 101 H 94 88 Respiratory Rate 17 18 21 H Blood Pressure 139/106 H Pulse Oximetry 97 98 Oxygen Delivery 06/23/24 09:30 06/23/24 09:31 06/23/24 10:34 Temperature 98.6 F Pulse Rate 72 84 83 Respiratory Rate 21 H 21 H 18 Blood Pressure 137/101 H 155/103 H Pulse Oximetry 98 94 99 Oxygen Delivery 06/23/24 10:35 Temperature Pulse Rate Respiratory Rate Blood Pressure Pulse Oximetry Oxygen Delivery Room Air Exam Const: General: no acute distress and uncomfortable Eyes: Sclera: sclerae normal Pupils: Equal, round and reactive pupils present Resp: Effort & Inspection: normal respiratory effort Auscultation: clear to auscultation bilaterally Cardio: Rate: regular rate Rhythm: regular rhythm GI: GI Palp: Yes Soft to palpation and Yes Tenderness to palpation present (GI) Auscultation: normal bowel sounds Skin: General skin exam: no rashes or lesions noted Neuro: Speech: normal speech Extrem: General: no pedal edema Psych: Affect: normal affect H&P: Results Labs Labs: Short CBC 06/22/24 06/23/24 Range/Units 23:01 10:25 WBC 14.1 H 8.5 (4.5-10.0) K/mm3 Hgb 17.4 D 14.3 D (14.0-18.0) g/dL Hct 49.3 42.5 (42.0-52.0) % Plt Count 223 141 L (150-375) k/mm3 BMP 06/22/24 06/23/24 23:01 10:25 Sodium 142 145 Potassium 4.2 4.1 Chloride 104 110 H Carbon Dioxide 21 L 25 BUN 27 H D 33 H Creatinine 2.75 H 3.32 H Glucose 125 H 116 H Calcium 9.4 8.1 L Liver Function 06/22/24 06/23/24 Range/Units 23:01 10:25 Total Bilirubin 1.4 H 1.3 (0.2-1.3) mg/dL AST 31 26 (17-59) U/L ALT 39 28 (6-50) U/L Alkaline Phosphatase 100 69 (38-126) U/L Albumin 5.0 3.8 (3.5-5.1) g/dL Urine 06/22/24 Range/Units 20:49 Urine Color Yellow (Yellow) Urine Appearance Clear (Clear) Urine pH 7.0 (5.0-9.0) Ur Specific Chemult 1.014 (1.001-1.035) Urine Protein 4+ H (Negative) mg/dL Urine Glucose (UA) Trace H (Negative) mg/dL Assessment and Plan Assessment and plan (1) Acute pancreatitis: Code(s): K85.90 - Acute pancreatitis without necrosis or infection, unspecified Status: Acute Assessment and Plan: * NPO except meds. * NS@ 150 ml/hr. * Zosyn 3.375 gram IVPB q 6. * WBC 14.1>8.5 * Lipase 1682>1577 * Trend labs * Pain control (2) Acute kidney injury: Code(s): N17.9 - Acute kidney failure, unspecified Status: Acute Assessment and Plan: * Creatinine 3.32, BUN 33, and GFR 22. * Patient was receiving LR fluids. Creatinine increased from 2.75>3.32. IV fluids switched to normal saline. * NS@ 150 ml/hr. * Monitor labs. (3) Hypertension: Code(s): I10 - Essential (primary) hypertension Status: Acute Assessment and Plan: * Blood pressure 155/103 * Lisinopril 10 mg PO daily. Retake after medication blood pressure 137/92. Hospitalist MIPS Advance Care Plan I have confirmed that the patient's Advanced Care Plan is present, code status is documented, or surrogate decision maker is listed in patient medical record.: Yes Medication Reconciliation I have utilized all available resources to obtain, update and review the patients current medications (includes all prescriptions, OTC, herbals, cannabis, and nutritional supplements).: Yes
[2024-06-23] MEDS: HYDROcodone/acetaminophen (*CRX) 5-325 MG TABLET 1 TAB PO (23:20)
[2024-06-24] MEDS: HYDROcodone/acetaminophen (*CRX) 5-325 MG TABLET 1 TAB PO ×4 (04:00→21:15)
[2024-06-24] MEDS: SODIUM CHLORIDE 0.9% IV 1,000 ML 150 ML IV CONT ×3 (04:10→17:36)
[2024-06-24] MEDS: PIPERACILLN/TAZ 3.375GM/NS50ML 3.375 GM/50 ML BAG IVPB ×3 (05:08→17:32)
[2024-06-24 05:39] VITALS: BP 139/97; PULSE 90; RESP 16; TEMP 36.3; O2SAT 100
[2024-06-24 06:36] LABS: Basophils Percent Auto 0.1 % (0.2-1.2); Eosinophils Absolute Auto 0.1 K/mm3 (0-0.3); Eosinophils Percent Auto 1.1 % (0-4.4); Hematocrit 39.7 % (42.0-52.0); Hemoglobin 13.1 g/dL (14.0-18.0); Immature Granulocyte Absolute 0.02 K/mm3 (0.00-0.031); Immature Granulocyte Percent A 0.3 % (0-0.5); Lymphocytes Absolute Auto 0.83 K/mm3 (0.9-3.2); Lymphocytes Percent Auto 11.5 % (18.3-44.2); Mean Corpuscular Hemoglobin 31.8 pg (26-34); Mean Corpuscular Volume 96.4 fl (80-100); Mean Platelet Volume 9.4 fl (7.4-10.4); Monocytes Absolute Auto 0.7 K/mm3 (0.1-0.6); Monocytes Percent Auto 9.3 % (2.6-8.5); Neutrophils Absolute Auto 5.6 K/mm3 (1.3-6.7); Neutrophils Percent Auto 77.7 % (45.5-73.1); Platelet Count Result 134 k/mm3 (150-375); Red Blood Count 4.12 M/mm3 (4.6-6.20); Red Cell Distribution Width 12.8 % (11.5-14.5); White Blood Count 7.2 K/mm3 (4.5-10.0)
[2024-06-24 06:46] LABS: Alanine Aminotransferase 27 U/L (6-50); Albumin Level 3.6 g/dL (3.5-5.1); Alkaline Phosphatase 68 U/L (38-126); Anion Gap 13 mmol/L (4-12); Aspartate Amino Transferase 26 U/L (17-59); Bilirubin,Total 1.2 mg/dL (0.2-1.3); Blood Urea Nitrogen 34 mg/dL (9-20); Calcium 8.3 mg/dL (8.4-10.2); Carbon Dioxide 19 mmol/L (22-30); Chloride 113 mmol/L (98-107); Estimated CRCL calculation 50 ml/min; Estimated Glomerular Filt Rate 32; Glucose 99 mg/dL (65-110); Potassium 3.8 mmol/L (3.4-5.0); Sodium 145 mmol/L (137-145)
[2024-06-24 07:11] LABS: Lipase 2452 U/L (23-300)
[2024-06-24] MEDS: lisinopriL 10 MG TABLET PO (07:51)
--- NOTE | 2024-06-24 11:38 | P.PNIM_ITS ---
Progress Note: A&P Assessment and Plan (1) Acute pancreatitis: Code(s): K85.90 - Acute pancreatitis without necrosis or infection, unspecified Status: Acute Assessment and Plan: * NPO except meds. * NS@ 150 ml/hr. * Zosyn 3.375 gram IVPB q 6. * WBC 14.1>8.5>7.2 * Lipase 1682>1577>2452 * Trend labs * Pain control (2) Acute kidney injury: Code(s): N17.9 - Acute kidney failure, unspecified Status: Acute Assessment and Plan: * Creatinine 2.42, BUN 34, and GFR 32. * NS@ 150 ml/hr. * Monitor labs. (3) Hypertension: Code(s): I10 - Essential (primary) hypertension Status: Acute Assessment and Plan: * Blood pressure 132/86. * Lisinopril 10 mg PO daily. Subjective Date/time seen: 06/24/24 11:38 Interval history: Patient reports feeling better today. Abdominal pain is a 3 , frequent, and aching. Patient denies chest pain, palpitations, headache, dizziness, nausea, or vomiting. Review of Systems Review of Systems: All systems reviewed & are unremarkable except as noted in HPI and below Exam Const: General: no acute distress and uncomfortable Resp: Effort & Inspection: normal respiratory effort Auscultation: clear to auscultation bilaterally GI: GI Palp: Yes Soft to palpation Auscultation: normal bowel sounds Skin: General skin exam: no rashes or lesions noted Neuro: Speech: normal speech Extrem: General: no pedal edema Psych: Mental Status: mental status grossly normal Affect: normal affect Objective Data Vital Signs Vital Signs: Vital Signs - 24 hr 06/23/24 14:00 06/23/24 20:30 06/23/24 21:42 Temperature 97.4 F L 98.3 F Pulse Rate 86 89 Respiratory Rate 18 16 Blood Pressure 137/92 H 139/97 H Pulse Oximetry 99 100 Oxygen Delivery Room Air 06/24/24 05:39 06/24/24 08:00 Temperature 97.3 F L Pulse Rate 90 Respiratory Rate 16 Blood Pressure 139/97 H Pulse Oximetry 100 Oxygen Delivery Room Air Intake/Output Intake/Output: Intake & Output 06/21/24 06/22/24 06/23/24 06/24/24 23:59 23:59 23:59 23:59 Intake Total 5250 2110 Balance 5250 2110 Meds/Results Medications: Active Medications Generic Name Dose Route Start Last Admin Trade Name Freq PRN Reason Stop Dose Admin Hydrocodone Bitart/Acetaminophen 1 tab 06/23/24 11:12 06/24/24 09:29 Hydrocodone/Acetaminophen (*Crx) 5-325 Mg Tablet PO 1 tab Q4H PRN Administration Pain Rated 4-6 Hydromorphone HCl 1 mg 06/23/24 03:00 06/23/24 20:27 Hydromorphone Hcl Inj (*Crx) 1 Mg/Ml Syr IV PUSH 1 mg Q4H PRN Administration Pain Rated 7-10 Piperacillin/Tazobactam/Dextrose 3.375 gm in 50 mls @ 100 mls/hr 06/23/24 07:00 06/24/24 11:07 Zosyn 3.375 Gm/Ns 50 Ml IVPB 100 mls/hr Q6HR CLAUDIA Administration Sodium Chloride 1,000 mls @ 150 mls/hr 06/23/24 11:10 06/24/24 11:06 Normal Saline Iv IV CONT 150 mls/hr .Q6H40M CLAUDIA Administration Lisinopril 10 mg 06/24/24 09:00 06/24/24 07:51 Lisinopril 10 Mg Tablet PO 10 mg DAILY CLAUDIA Administration Ondansetron HCl 4 mg 06/23/24 03:00 06/23/24 23:20 Ondansetron Inj 4 Mg/2 Ml Vial IV PUSH 4 mg Q4H PRN Administration Nausea Radiology Results: ITS Impressions Chest X-Ray 06/23/24 05:38 Impression: Clear lungs. Abdomen/Pelvis CT 06/23/24 05:39 Impression: Mild acute pancreatitis. Associated small amount of pelvic ascites. Borderline splenomegaly. 2 mm nonobstructing left renal stone. Diffuse hepatic steatosis. Labs Labs: Laboratory Results - last 24 hr 06/24/24 06/24/24 06:12 06:13 WBC 7.2 RBC 4.12 L Hgb 13.1 L Hct 39.7 L MCV 96.4 MCH 31.8 MCHC 33.0 RDW 12.8 Plt Count 134 L MPV 9.4 Immature Gran % (Auto) 0.3 Neut % (Auto) 77.7 H Lymph % (Auto) 11.5 L [place] % (Auto) 9.3 H Eos % (Auto) 1.1 Baso % (Auto) 0.1 L Lymph # (Auto) 0.83 L [place] # (Auto) 0.7 H Eos # (Auto) 0.1 Baso # (Auto) 0.0 Abs Immat Gran (auto) 0.02 Absolute Neuts (auto) 5.6 Absolute Nucleated RBC 0.000 Nucleated RBC % 0.0 Sodium 145 Potassium 3.8 Chloride 113 H Carbon Dioxide 19 L Anion Gap 13 H BUN 34 H Creatinine 2.42 H Estim Creat Clear Calc 50 Estimated GFR 32 L Glucose 99 Calcium 8.3 L Total Bilirubin 1.2 AST 26 ALT 27 Alkaline Phosphatase 68 Total Protein 7.0 Albumin 3.6 Lipase 2452 H Quality VTE Prophylaxis VTE prophylaxis: mechanical ordered
[2024-06-24 14:00] VITALS: BP 132/86; PULSE 88; RESP 16; TEMP 36.4; O2SAT 100
[2024-06-24] MEDS: ONDANSETRON INJ 4 MG/2 ML VIAL IV PUSH (17:36)
[2024-06-24] MEDS: HYDROmorphone HCL INJ (*CRX) 1 MG/ML SYR IV PUSH (17:36)
[2024-06-24] MEDS: MELATONIN 5 MG TABLET PO (21:15)
[2024-06-24 22:00] VITALS: BP 161/116; PULSE 74; RESP 18; TEMP 36.2; O2SAT 100
[2024-06-25] MEDS: PIPERACILLN/TAZ 3.375GM/NS50ML 3.375 GM/50 ML BAG IVPB ×2 (00:26→05:33)
[2024-06-25] MEDS: SODIUM CHLORIDE 0.9% IV 1,000 ML 150 ML IV CONT ×2 (00:26→07:35)
[2024-06-25] MEDS: ONDANSETRON INJ 4 MG/2 ML VIAL IV PUSH ×2 (00:27→05:33)
[2024-06-25] MEDS: HYDROcodone/acetaminophen (*CRX) 5-325 MG TABLET 1 TAB PO ×3 (05:33→20:50)
[2024-06-25 06:00] VITALS: BP 144/68; PULSE 74; RESP 18; TEMP 36.8; O2SAT 100
[2024-06-25] MEDS: lisinopriL 10 MG TABLET PO (07:35)
[2024-06-25 08:00] LABS: Basophils Percent Auto 0.3 % (0.2-1.2); Eosinophils Absolute Auto 0.1 K/mm3 (0-0.3); Eosinophils Percent Auto 1.5 % (0-4.4); Hematocrit 39.7 % (42.0-52.0); Hemoglobin 13.2 g/dL (14.0-18.0); Immature Granulocyte Absolute 0.03 K/mm3 (0.00-0.031); Immature Granulocyte Percent A 0.4 % (0-0.5); Lymphocytes Absolute Auto 0.72 K/mm3 (0.9-3.2); Lymphocytes Percent Auto 10.6 % (18.3-44.2); Mean Corpuscular HGB Conc 33.2 g/dl (32-36); Mean Corpuscular Hemoglobin 31.8 pg (26-34); Mean Corpuscular Volume 95.7 fl (80-100); Mean Platelet Volume 9.1 fl (7.4-10.4); Monocytes Absolute Auto 0.5 K/mm3 (0.1-0.6); Monocytes Percent Auto 6.6 % (2.6-8.5); Neutrophils Absolute Auto 5.5 K/mm3 (1.3-6.7); Neutrophils Percent Auto 80.6 % (45.5-73.1); Platelet Count Result 155 k/mm3 (150-375); Red Blood Count 4.15 M/mm3 (4.6-6.20); Red Cell Distribution Width 12.4 % (11.5-14.5); White Blood Count 6.8 K/mm3 (4.5-10.0)
[2024-06-25 08:28] LABS: Alanine Aminotransferase 25 U/L (6-50); Albumin Level 3.5 g/dL (3.5-5.1); Alkaline Phosphatase 67 U/L (38-126); Anion Gap 11 mmol/L (4-12); Aspartate Amino Transferase 21 U/L (17-59); Bilirubin,Total 0.8 mg/dL (0.2-1.3); Blood Urea Nitrogen 21 mg/dL (9-20); Calcium 8.8 mg/dL (8.4-10.2); Carbon Dioxide 22 mmol/L (22-30); Chloride 114 mmol/L (98-107); Estimated CRCL calculation 92 ml/min; Estimated Glomerular Filt Rate > 60; Glucose 89 mg/dL (65-110); Potassium 3.9 mmol/L (3.4-5.0); Sodium 147 mmol/L (137-145)
[2024-06-25 08:42] LABS: Lipase 4158 U/L (23-300)
--- NOTE | 2024-06-25 09:51 | P.PNIM_ITS ---
Progress Note: A&P Assessment and Plan (1) Acute pancreatitis: Code(s): K85.90 - Acute pancreatitis without necrosis or infection, unspecified Status: Acute Assessment and Plan: Non alcoholic pancreatitis * Clear liquid diet * LR 200 * Zosyn discontinue * Lipase trending up * Trend labs * Pain control * Lipid panel (2) Acute kidney injury: Code(s): N17.9 - Acute kidney failure, unspecified Status: Acute Assessment and Plan: Resolved * Monitor labs. (3) Hypertension: Code(s): I10 - Essential (primary) hypertension Status: Acute Assessment and Plan: * Lisinopril 10 mg PO daily. Time Spent With Patient Time with patient: Greater than 35 minutes Subjective Date/time seen: 06/25/24 09:51 Interval history: 28 year old male that came to the hospital with abdominal pain and nausea found have acute pancreatitis. Lipase trending up this morning, fluids change to LR at 200. Patient was try clear liquid diet, lipid panel ordered Review of Systems Review of Systems: 12 systems were reviewed and are negativ e except for as per HPI. All systems reviewed & are unremarkable except as noted in HPI and below Exam Narrative: General: well appearing, appears stated age. HEENT: normocephalic, atraumatic. Mucous membranes moist. EOMI, PERRLA, bilateral sclera anicteric, no conjunctival injection. Neck supple without JVD, lymphadenopathy, or bruit. Respiratory: clear to ascultation bilaterally. No rales/rhonic/wheezes. Cardiovascular: Regular rate and rhythm, normal S1-S2 upon ascultation. No murmurs, rubs, or clicks. PMI is nondisplaced, capillary refill less than 3 second. Abdomen: Soft, round, no pulsatile masses, nondistended and nontender. No rebound, no guarding. No CVA tenderness, no hepatosplenomegaly. Bowel sounds present to all four quadrants. No high pitch or tinkling sounds, resonant to percussion. Extremities: No cyanosis, clubbing, or edema present. Pulses are palpable 2/2. Active ROM to all four extremities. Neuro: Alert and orientated x 4. PERRLA. Cranial nerves 2-12 intact without focal deficit. Skin: Warm, dry, and intact, without rash, erythema, or lesion. Psych: pleasant, cooperative, normal speech, normal affect, no hallucinations, no dysarthia Objective Data Vital Signs Vital Signs: Vital Signs - 24 hr 06/24/24 14:00 06/24/24 20:00 06/24/24 22:00 Temperature 97.6 F 97.1 F L Pulse Rate 88 74 Respiratory Rate 16 18 Blood Pressure 132/86 161/116 H Pulse Oximetry 100 100 Oxygen Delivery Room Air 06/25/24 06:00 06/25/24 08:00 Temperature 98.2 F Pulse Rate 74 Respiratory Rate 18 Blood Pressure 144/68 H Pulse Oximetry 100 Oxygen Delivery Room Air Intake/Output Intake/Output: Intake & Output 06/22/24 06/23/24 06/24/24 06/25/24 23:59 23:59 23:59 23:59 Intake Total 5250 3185 2340 Balance 5250 3185 2340 Meds/Results Medications: Active Medications Generic Name Dose Route Start Last Admin Trade Name Freq PRN Reason Stop Dose Admin Hydrocodone Bitart/Acetaminophen 1 tab 06/23/24 11:12 06/25/24 05:33 Hydrocodone/Acetaminophen (*Crx) 5-325 Mg Tablet PO 1 tab Q4H PRN Administration Pain Rated 4-6 Hydromorphone HCl 1 mg 06/23/24 03:00 06/24/24 17:36 Hydromorphone Hcl Inj (*Crx) 1 Mg/Ml Syr IV PUSH 1 mg Q4H PRN Administration Pain Rated 7-10 Piperacillin/Tazobactam/Dextrose 3.375 gm in 50 mls @ 100 mls/hr 06/23/24 07:00 06/25/24 06:00 Zosyn 3.375 Gm/Ns 50 Ml IVPB Infused Q6HR CLAUDIA Infusion Sodium Chloride 1,000 mls @ 150 mls/hr 06/23/24 11:10 06/25/24 07:35 Normal Saline Iv IV CONT 150 mls/hr .Q6H40M CLAUDIA Administration Lisinopril 10 mg 06/24/24 09:00 06/25/24 07:35 Lisinopril 10 Mg Tablet PO 10 mg DAILY CLAUDIA Administration Melatonin 5 mg 06/24/24 21:00 06/24/24 21:15 Melatonin 5 Mg Tablet PO 5 mg HS CLAUDIA Administration Ondansetron HCl 4 mg 06/23/24 03:00 06/25/24 05:33 Ondansetron Inj 4 Mg/2 Ml Vial IV PUSH 4 mg Q4H PRN Administration Nausea Radiology Results: ITS Impressions Chest X-Ray 06/23/24 05:38 Impression: Clear lungs. Abdomen/Pelvis CT 06/23/24 05:39 Impression: Mild acute pancreatitis. Associated small amount of pelvic ascites. Borderline splenomegaly. 2 mm nonobstructing left renal stone. Diffuse hepatic steatosis. Labs Labs: Laboratory Results - last 24 hr 06/25/24 07:39 WBC 6.8 RBC 4.15 L Hgb 13.2 L Hct 39.7 L MCV 95.7 MCH 31.8 MCHC 33.2 RDW 12.4 Plt Count 155 MPV 9.1 Immature Gran % (Auto) 0.4 Neut % (Auto) 80.6 H Lymph % (Auto) 10.6 L [place] % (Auto) 6.6 Eos % (Auto) 1.5 Baso % (Auto) 0.3 Lymph # (Auto) 0.72 L [place] # (Auto) 0.5 Eos # (Auto) 0.1 Baso # (Auto) 0.0 Abs Immat Gran (auto) 0.03 Absolute Neuts (auto) 5.5 Absolute Nucleated RBC 0.000 Nucleated RBC % 0.0 Sodium 147 H Potassium 3.9 Chloride 114 H Carbon Dioxide 22 Anion Gap 11 BUN 21 H D Creatinine 1.28 Estim Creat Clear Calc 92 Estimated GFR > 60 Glucose 89 Calcium 8.8 Total Bilirubin 0.8 AST 21 ALT 25 Alkaline Phosphatase 67 Total Protein 7.0 Albumin 3.5 Lipase 4158 H Quality VTE Prophylaxis VTE prophylaxis: mechanical ordered
[2024-06-25] MEDS: LACTATED RINGERS 1,000 ML 200 ML IV CONT ×3 (10:20→20:46)
[2024-06-25 14:00] VITALS: BP 157/99; PULSE 84; RESP 14; TEMP 36.4; O2SAT 100
[2024-06-25] MEDS: PANTOPRAZOLE SODIUM IV 40 MG VIAL IV PUSH (15:43)
[2024-06-25] MEDS: MELATONIN 5 MG TABLET PO (20:47)
[2024-06-25 22:00] VITALS: BP 168/108; PULSE 71; RESP 18; TEMP 36.2; O2SAT 100
[2024-06-26] MEDS: LACTATED RINGERS 1,000 ML 200 ML IV CONT ×2 (01:05→06:06)
[2024-06-26] MEDS: ONDANSETRON INJ 4 MG/2 ML VIAL IV PUSH (04:22)
[2024-06-26 06:00] VITALS: BP 160/112; PULSE 81; RESP 18; TEMP 37.3; O2SAT 98
[2024-06-26 06:56] VITALS: BP 148/98
[2024-06-26] MEDS: PANTOPRAZOLE SODIUM IV 40 MG VIAL IV PUSH (07:50)
[2024-06-26] MEDS: lisinopriL 10 MG TABLET PO (07:50)
[2024-06-26 07:59] LABS: Basophils Percent Auto 0.3 % (0.2-1.2); Eosinophils Absolute Auto 0.2 K/mm3 (0-0.3); Eosinophils Percent Auto 2.8 % (0-4.4); Hematocrit 38.5 % (42.0-52.0); Hemoglobin 13.4 g/dL (14.0-18.0); Immature Granulocyte Absolute 0.02 K/mm3 (0.00-0.031); Immature Granulocyte Percent A 0.3 % (0-0.5); Lymphocytes Absolute Auto 1.05 K/mm3 (0.9-3.2); Lymphocytes Percent Auto 15.5 % (18.3-44.2); Mean Corpuscular HGB Conc 34.8 g/dl (32-36); Mean Corpuscular Hemoglobin 32.2 pg (26-34); Mean Corpuscular Volume 92.5 fl (80-100); Mean Platelet Volume 9.1 fl (7.4-10.4); Monocytes Absolute Auto 0.5 K/mm3 (0.1-0.6); Monocytes Percent Auto 7.1 % (2.6-8.5); Platelet Count Result 170 k/mm3 (150-375); Red Blood Count 4.16 M/mm3 (4.6-6.20); White Blood Count 6.8 K/mm3 (4.5-10.0)
[2024-06-26 08:08] LABS: Lipase 611 U/L (23-300)
[2024-06-26 08:13] LABS: Cholesterol 147 mg/dL (0-200); HDL Direct 37 mg/dL; Triglycerides 148 mg/dL (<150)
[2024-06-26 08:24] LABS: LDL Cholesterol Direct 85 mg/dL
[2024-06-26 08:25] VITALS: O2SAT 97
[2024-06-26 08:33] LABS: Alanine Aminotransferase 24 U/L (6-50); Albumin Level 3.6 g/dL (3.5-5.1); Alkaline Phosphatase 65 U/L (38-126); Anion Gap 8 mmol/L (4-12); Aspartate Amino Transferase 21 U/L (17-59); Bilirubin,Total 0.7 mg/dL (0.2-1.3); Blood Urea Nitrogen 10 mg/dL (9-20); Carbon Dioxide 28 mmol/L (22-30); Chloride 105 mmol/L (98-107); Estimated CRCL calculation 106 ml/min; Estimated Glomerular Filt Rate > 60; Glucose 92 mg/dL (65-110); Potassium 3.3 mmol/L (3.4-5.0); Sodium 141 mmol/L (137-145)
--- NOTE | 2024-06-26 08:53 | P.PNIM_ITS ---
Progress Note: A&P Assessment and Plan (1) Acute pancreatitis: Code(s): K85.90 - Acute pancreatitis without necrosis or infection, unspecified Status: Acute Assessment and Plan: Likely due to metabolic syndrome with some alcohol use * Clear liquid diet * LR 75 * Zosyn discontinue * Lipase trending down * Trend labs * Pain control * Lipid panel within normal limits * Diffuse hepatic steatosis. * Lifestyle recommendations (2) Acute kidney injury: Code(s): N17.9 - Acute kidney failure, unspecified Status: Acute Assessment and Plan: Resolved * Monitor labs. (3) Hypertension: Code(s): I10 - Essential (primary) hypertension Status: Acute Assessment and Plan: * Lisinopril 10 mg PO daily. Time Spent With Patient Time with patient: Greater than 35 minutes Subjective Date/time seen: 06/26/24 08:53 Interval history: 28 year old male that came to the hospital with abdominal pain and nausea found have acute pancreatitis. Lipase 611, fluids change to LR at 75. Patient feeling much better will try regular diet tonight. Review of Systems Review of Systems: 12 systems were reviewed and are negativ e except for as per HPI. All systems reviewed & are unremarkable except as noted in HPI and below Exam Narrative: General: well appearing, appears stated age. HEENT: normocephalic, atraumatic. Mucous membranes moist. EOMI, PERRLA, bilateral sclera anicteric, no conjunctival injection. Neck supple without JVD, lymphadenopathy, or bruit. Respiratory: clear to ascultation bilaterally. No rales/rhonic/wheezes. Cardiovascular: Regular rate and rhythm, normal S1-S2 upon ascultation. No murmurs, rubs, or clicks. PMI is nondisplaced, capillary refill less than 3 second. Abdomen: Soft, round, no pulsatile masses, nondistended and nontender. No rebound, no guarding. No CVA tenderness, no hepatosplenomegaly. Bowel sounds present to all four quadrants. No high pitch or tinkling sounds, resonant to percussion. Extremities: No cyanosis, clubbing, or edema present. Pulses are palpable 2/2. Active ROM to all four extremities. Neuro: Alert and orientated x 4. PERRLA. Cranial nerves 2-12 intact without focal deficit. Skin: Warm, dry, and intact, without rash, erythema, or lesion. Psych: pleasant, cooperative, normal speech, normal affect, no hallucinations, no dysarthia Objective Data Vital Signs Vital Signs: Vital Signs - 24 hr 06/25/24 14:00 06/25/24 22:00 06/26/24 06:00 Temperature 97.6 F 97.1 F L 99.1 F Pulse Rate 84 71 81 Respiratory Rate 14 18 18 Blood Pressure 157/99 H 168/108 H 160/112 H Pulse Oximetry 100 100 98 Oxygen Delivery 06/26/24 06:56 06/26/24 08:25 Temperature Pulse Rate Respiratory Rate Blood Pressure 148/98 H Pulse Oximetry 97 Oxygen Delivery Room Air Intake/Output Intake/Output: Intake & Output 06/23/24 06/24/24 06/25/24 06/26/24 23:59 23:59 23:59 23:59 Intake Total 5250 3185 4530.3 2323.3 Balance 5250 3185 4530.3 2323.3 Meds/Results Medications: Active Medications Generic Name Dose Route Start Last Admin Trade Name Freq PRN Reason Stop Dose Admin Hydrocodone Bitart/Acetaminophen 1 tab 06/23/24 11:12 06/25/24 20:50 Hydrocodone/Acetaminophen (*Crx) 5-325 Mg Tablet PO 1 tab Q4H PRN Administration Pain Rated 4-6 Hydromorphone HCl 1 mg 06/23/24 03:00 06/24/24 17:36 Hydromorphone Hcl Inj (*Crx) 1 Mg/Ml Syr IV PUSH 1 mg Q4H PRN Administration Pain Rated 7-10 Lactated Ringer's 1,000 mls @ 200 mls/hr 06/25/24 09:55 06/26/24 08:24 Lr - Lactated Ringers Iv IV CONT 75 mls/hr .Q5H CLAUDIA Infusion Lisinopril 10 mg 06/24/24 09:00 06/26/24 07:50 Lisinopril 10 Mg Tablet PO 10 mg DAILY CLAUDIA Administration Melatonin 5 mg 06/24/24 21:00 06/25/24 20:47 Melatonin 5 Mg Tablet PO 5 mg HS CLAUDIA Administration Ondansetron HCl 4 mg 06/23/24 03:00 06/26/24 04:22 Ondansetron Inj 4 Mg/2 Ml Vial IV PUSH 4 mg Q4H PRN Administration Nausea Pantoprazole Sodium 40 mg 06/25/24 15:00 06/26/24 07:50 Pantoprazole Sodium Iv 40 Mg Vial IV PUSH 40 mg QAM CLAUDIA Administration Radiology Results: ITS Impressions Chest X-Ray 06/23/24 05:38 Impression: Clear lungs. Abdomen/Pelvis CT 06/23/24 05:39 Impression: Mild acute pancreatitis. Associated small amount of pelvic ascites. Borderline splenomegaly. 2 mm nonobstructing left renal stone. Diffuse hepatic steatosis. Labs Labs: Laboratory Results - last 24 hr 06/26/24 07:41 WBC 6.8 RBC 4.16 L Hgb 13.4 L Hct 38.5 L MCV 92.5 MCH 32.2 MCHC 34.8 RDW 12.0 Plt Count 170 MPV 9.1 Immature Gran % (Auto) 0.3 Neut % (Auto) 74.0 H Lymph % (Auto) 15.5 L [place] % (Auto) 7.1 Eos % (Auto) 2.8 Baso % (Auto) 0.3 Lymph # (Auto) 1.05 [place] # (Auto) 0.5 Eos # (Auto) 0.2 Baso # (Auto) 0.0 Abs Immat Gran (auto) 0.02 Absolute Neuts (auto) 5.0 Absolute Nucleated RBC 0.000 Nucleated RBC % 0.0 Sodium 141 Potassium 3.3 L Chloride 105 Carbon Dioxide 28 Anion Gap 8 BUN 10 D Creatinine 1.11 Estim Creat Clear Calc 106 Estimated GFR > 60 Glucose 92 Calcium 9.0 Total Bilirubin 0.7 AST 21 ALT 24 Alkaline Phosphatase 65 Total Protein 7.0 Albumin 3.6 Triglycerides 148 Cholesterol 147 LDL Cholesterol Direct 85 HDL Direct 37 Lipase 611 H Quality VTE Prophylaxis VTE prophylaxis: mechanical ordered
[2024-06-26] MEDS: POTASSIUM CHLORIDE 20 MEQ ER TABLET 40 MEQ PO (09:31)
[2024-06-26 14:00] VITALS: BP 142/99; PULSE 78; RESP 18; TEMP 36.9; O2SAT 100
[2024-06-26] MEDS: LACTATED RINGERS 1,000 ML 75 ML IV CONT (15:32)
[2024-06-26] MEDS: MELATONIN 5 MG TABLET PO (20:50)
[2024-06-26 22:00] VITALS: BP 154/94; PULSE 77; RESP 18; TEMP 36.2; O2SAT 99
[2024-06-27] MEDS: LACTATED RINGERS 1,000 ML 75 ML IV CONT (04:50)
[2024-06-27 06:00] VITALS: BP 161/99; PULSE 75; RESP 18; TEMP 36.2; O2SAT 99
[2024-06-27 06:50] LABS: Basophils Percent Auto 0.5 % (0.2-1.2); Eosinophils Absolute Auto 0.2 K/mm3 (0-0.3); Eosinophils Percent Auto 3.6 % (0-4.4); Hematocrit 38.8 % (42.0-52.0); Hemoglobin 13.4 g/dL (14.0-18.0); Immature Granulocyte Absolute 0.03 K/mm3 (0.00-0.031); Immature Granulocyte Percent A 0.5 % (0-0.5); Lymphocytes Absolute Auto 1.23 K/mm3 (0.9-3.2); Lymphocytes Percent Auto 18.7 % (18.3-44.2); Mean Corpuscular HGB Conc 34.5 g/dl (32-36); Mean Corpuscular Hemoglobin 31.3 pg (26-34); Mean Corpuscular Volume 90.7 fl (80-100); Monocytes Absolute Auto 0.6 K/mm3 (0.1-0.6); Monocytes Percent Auto 8.3 % (2.6-8.5); Neutrophils Absolute Auto 4.5 K/mm3 (1.3-6.7); Neutrophils Percent Auto 68.4 % (45.5-73.1); Platelet Count Result 189 k/mm3 (150-375); Red Blood Count 4.28 M/mm3 (4.6-6.20); Red Cell Distribution Width 11.8 % (11.5-14.5); White Blood Count 6.6 K/mm3 (4.5-10.0)
[2024-06-27 06:54] LABS: Alanine Aminotransferase 27 U/L (6-50); Albumin Level 3.4 g/dL (3.5-5.1); Alkaline Phosphatase 64 U/L (38-126); Anion Gap 9 mmol/L (4-12); Aspartate Amino Transferase 25 U/L (17-59); Bilirubin,Total 0.8 mg/dL (0.2-1.3); Blood Urea Nitrogen 10 mg/dL (9-20); Calcium 9.2 mg/dL (8.4-10.2); Carbon Dioxide 30 mmol/L (22-30); Chloride 101 mmol/L (98-107); Estimated CRCL calculation 111 ml/min; Estimated Glomerular Filt Rate > 60; Glucose 98 mg/dL (65-110); Lipase 563 U/L (23-300); Potassium 3.4 mmol/L (3.4-5.0); Sodium 140 mmol/L (137-145)
[2024-06-27 09:05] VITALS: BP 141/88; PULSE 96; O2SAT 98
[2024-06-27] MEDS: lisinopriL 10 MG TABLET PO (09:06)
[2024-06-27] MEDS: PANTOPRAZOLE SODIUM IV 40 MG VIAL IV PUSH (09:11)
--- NOTE | 2024-06-27 09:54 | P.DS_ITS ---
DS: Admitting Diagnosis Discharge Date 06/27/2023 Admitting Diagnosis Acute pancreatitis DS: Discharge Diagnosis Discharge Diagnosis (1) Acute pancreatitis: Code(s): K85.90 - Acute pancreatitis without necrosis or infection, unspecified Status: Acute Assessment and Plan: Likely due to metabolic syndrome with some alcohol use * Clear liquid diet * Zosyn discontinue * Lipase trending down * Trend labs * Pain control * Lipid panel within normal limits * Diffuse hepatic steatosis. * Lifestyle recommendations (2) Acute kidney injury: Code(s): N17.9 - Acute kidney failure, unspecified Status: Acute Assessment and Plan: Resolved * Monitor labs. (3) Hypertension: Code(s): I10 - Essential (primary) hypertension Status: Acute Assessment and Plan: * Lisinopril 10 mg PO daily. DS: Summary Hospital Course Reason for hospitalization: Acute pancreatitis Hospital Course: 28 year old male that came to the hospital with abdominal pain and nausea. Patient reports that he had diarrhea that ended on Sunday and the last time he vomited was yesterday. Patient denies chest pain, palpitations, headache, dizziness, or vomiting at present. Patient reports that he started feeling bad while in [place] after he had drank 5 [place] [employer] drinks and ate supper. Patient later developed abdominal pain. Patient reports pain in abdomen and lower back that is a 6 , constant, and sharp. Patient reports that he has not been taking blood pressure medication because he ran out of it. Patient reports that he normally only drinks socially and that he does not smoke. Patient's lipase level trended down with aggressive fluid hydration. Hospital day 3 his pain was controlled and he was started on clear liquid diet. That night he had a regular diet for dinner. Denied acute pain with eating. Lipase now 563 patient wishes to go home. Patient has been counseled on alcohol cessation and lifestyle modifications to prevent another attack of acute pancreatitis. Status at Discharge Functional status at discharge: independent ambulation Time Spent with Patient Time attestation: Total time spent providing and/or coordinating discharge services: Time spent: Greater than 30 minutes Exam Narrative: General: well appearing, appears stated age. HEENT: normocephalic, atraumatic. Mucous membranes moist. EOMI, PERRLA, bilateral sclera anicteric, no conjunctival injection. Neck supple without JVD, lymphadenopathy, or bruit. Respiratory: clear to ascultation bilaterally. No rales/rhonic/wheezes. Cardiovascular: Regular rate and rhythm, normal S1-S2 upon ascultation. No murmurs, rubs, or clicks. PMI is nondisplaced, capillary refill less than 3 second. Abdomen: Soft, round, no pulsatile masses, nondistended and nontender. No rebound, no guarding. No CVA tenderness, no hepatosplenomegaly. Bowel sounds present to all four quadrants. No high pitch or tinkling sounds, resonant to percussion. Extremities: No cyanosis, clubbing, or edema present. Pulses are palpable 2/2. Active ROM to all four extremities. Neuro: Alert and orientated x 4. PERRLA. Cranial nerves 2-12 intact without focal deficit. Skin: Warm, dry, and intact, without rash, erythema, or lesion. Psych: pleasant, cooperative, normal speech, normal affect, no hallucinations, no dysarthia DS: Data Data Completed and Pending Labs on day of discharge: Labs from last 24 hours 06/27/24 06:32 WBC 6.6 RBC 4.28 L Hgb 13.4 L Hct 38.8 L MCV 90.7 MCH 31.3 MCHC 34.5 RDW 11.8 Plt Count 189 MPV 9.0 Immature Gran % (Auto) 0.5 Neut % (Auto) 68.4 Lymph % (Auto) 18.7 [place] % (Auto) 8.3 Eos % (Auto) 3.6 Baso % (Auto) 0.5 Lymph # (Auto) 1.23 [place] # (Auto) 0.6 Eos # (Auto) 0.2 Baso # (Auto) 0.0 Abs Immat Gran (auto) 0.03 Absolute Neuts (auto) 4.5 Absolute Nucleated RBC 0.000 Nucleated RBC % 0.0 Sodium 140 Potassium 3.4 Chloride 101 Carbon Dioxide 30 Anion Gap 9 BUN 10 Creatinine 1.05 Estim Creat Clear Calc 111 Estimated GFR > 60 Glucose 98 Calcium 9.2 Total Bilirubin 0.8 AST 25 ALT 27 Alkaline Phosphatase 64 Total Protein 7.0 Albumin 3.4 L Lipase 563 H Discharge Plan Discharge Discharging Clinician: Maria Ines Houser Anticipated Discharge Date/Time: 06/27/24 09:56 Patient Disposition: Home, Self-Care Activity: may shower Diet: regular Discharge Instructions: Discharge instructions: Take medications as prescribed You have been giving of a 3 month prescription and your blood pressure meds Recommendations for healthy diet and exercise, weight loss and avoiding alcohol will help prevent acute pancreatitis attack You are activity as tolerated Monitor blood pressures Avoid social areas, you wear a mask when in social settings Encouraged to continue with yearly vaccinations Return to the emergency department if he developed sudden shortness of breath, chest pain, nausea, vomiting, upset stomach or intractable diarrhea Return to the emergency department if you develop fever greater than 101.5 Follow-up with: Your primary care physician within 1-2 weeks for post hospitalization check up Thank you for [facility] for your healthcare needs Patient Instructions: Pancreatitis (DC), Metabolic Syndrome X (DC), Mediterranean Diet (DC) Patient Language: Kisw[place]ili Stand Alone Forms: General Discharge Information Follow-up/Referrals: Mallory,Raad Rome MD [Primary Care Provider] - 2 Weeks Discharge Medications: New lisinopril 10 mg Tablet 10 mg PO DAILY 90 Days Qty: 90 0RF Continued hydrocodone-acetaminophen 5-325 mg Tablet 1 tablet PO Q4H PRN (Reason: Pain Rated 4-6) Qty: 20 0RF Discontinued lisinopril 10 mg tablet 10 mg PO DAILY Date of admission: 06/23/24 03:00 Primary Care Provider: VicRaad Admitting Provider: Heavenly Hinojosa Attending physician on admission: Heavenly Hinojosa Condition: Stable Quality VTE Prophylaxis VTE prophylaxis: mechanical ordered Hospitalist MIPS Heart Failure (Exclusion) Patient has history of Heart Transplant or Left Ventricular Assistive Device?: No IF YES, STOP HERE Heart Failure (Qualifier) Patient has current or prior documentation of LVEF less than or equal to 40%, or mod/servere depressed LVSF?: No IF NO, STOP HERE
== END 2024-06-27 12:25 | disposition home or self-care (01) | DRG 439 ==
LOC: ANHED 06-23 02:04 → ANH3MEDSUR 06-23 09:34
PROVIDERS: Nurse Practitioner Family; Admitting Provider Internal Medicine; Emergency Provider Emergency Medicine; PCP Family Medicine; Visit Provider Nurse Practitioner Gerontology
DX: K85.90 Acute pancreatitis without necrosis or infection, unspecified (principal); N17.9 Acute kidney failure, unspecified; E88.810 Metabolic syndrome; K76.0 Fatty (change of) liver, not elsewhere classified; I10 Essential (primary) hypertension; F10.90 Alcohol use, unspecified, uncomplicated
CPT/HCPCS: 36415; 71045; 74176; 80053; 80061; 81001; 83605; 83690; 83735; 84100; 85025; 87637; 93005; 96361; 96365; 96372; 96374; 96375; 96376; 99285; A9270; J0780; J1171; J2405; J2470; J2543; J7030; J7120